=== PATIENT | male | born 1965 | race African-American/Black ===

== ENCOUNTER 2020-01-03 18:35 | Emergency (ER) | payer SELFPAY ==
--- NOTE | 2020-01-03 19:14 | RAD REPORT ---
EXAM DESCRIPTION: CT - Head C Spine Mpr Wo Con - 01/03/2020 7:01 pm CLINICAL HISTORY: Head and neck injury status post fall. Head and neck pain. Alteration of conscious ness COMPARISON: None. TECHNIQUE: Computed axial tomography of the head and cervical spine was obtained. Sagittal and coronal reconstruction was performed. All CT scans are performed using dose optimization technique as appropriate and may include automated exposure control or mA/KV adjustment according to patient size. FINDINGS: 6.7 centimeter bleed is present within predominantly the left basal ganglia extending into the left frontal lobe with surrounding edema. The left lateral ventricle is compressed. Shift of mid line structures 7 millimeters to the right is noted. A cervical fracture is not visualized. No dislocation is noted. IMPRESSION: 6.7 centimeter left basal ganglia bleed perhaps secondary to hypertension A cervical fracture is not visualized. Nurse Terrence notified at 7:06 p.m. on January 03, 2020
--- NOTE | 2020-01-03 19:16 | RAD REPORT ---
EXAM DESCRIPTION: Manjeet Single View01/03/2020 7:10 pm CLINICAL HISTORY: Chest pain COMPARISON: 2015 FINDINGS: The lungs appear clear of acute infiltrate. The heart is moderately enlarged IMPRESSION: No acute abnormalities displayed
[2020-01-03] MEDS ORDERED: Nicardipine/NS 25 MG/250 ML KIT IV ONE (19:18)
[2020-01-03 19:35] LABS: Absolute Lymphocytes (CBC) 1.3 K/uL (0.7-4.9); Basophils % 1.3 % (0-1.3); Hematocrit 37.6 % (39.6-49.0); Lymphocytes % 25.4 % (15.3-44.8); MPV 8.6 fL (7.6-11.3); RBC Red Blood Cell Count 3.84 M/uL (4.33-5.43)
--- NOTE | 2020-01-03 19:37 | ER ---
Nurse's Notes [facility] Name: José Miller Age: 54 yrs Sex: Male : 1965 Arrival Date: 01/03/2020 Time: 18:37 Bed 4 Private MD: Diagnosis: Aphasia following other nontraumatic intracranial hemorrhage;Hemiplegia and hemiparesis following other nontraumatic intracranial hemorrhage-right side Presentation: 01/02 18:38 Chief complaint: EMS states: Last seen by family on Sun who broke into pt's home today ph to check on him, found on ground w/ R sided weakness, EMS noticed empty bag of synthetic marijuana in residence but pt denies using, BGL 86, only hx reported by family is HTN, BP 180/90. Coronavirus screen: Proceed with normal triage. Ebola Screen: No symptoms or risks identified at this time. An acute neurological deficit is present. The patients blood glucose was checked before arriving to the hospital and was found to be normal. Initial Sepsis Screen: Does the patient meet any 2 criteria? Altered Mental Status. Does the patient have a suspected source of infection? No. Patient's initial sepsis screen is negative. Risk Assessment: Do you want to hurt yourself or someone else? Patient reports no desire to harm self or others. Onset of symptoms was January 03, 2020. 18:38 [facility] 18:38 Acuity: CHAMP 2 ph Triage Assessment: 19:08 The onset of the patients symptoms was at an unknown time. jb4 19:08 General: Appears in no apparent distress. uncomfortable, ill. jb4 Stroke Activation: Symptom onset > 6 hours Physician: Stroke Attending; Name: ; Notified At: ; Arrived At: Physician: Chief Stroke Resident; Name: ; Notified At: ; Arrived At: Physician: Stroke Resident; Name: ; Notified At: ; Arrived At: Physician: ED Attending; Name: ; Notified At: ; Arrived At: Physician: ED Resident; Name: ; Notified At: ; Arrived At: Historical: - Allergies: 18:48 No Known Allergies; ph - PMHx: 18:48 Hypertension; ph - PSHx: 18:48 None; ph - Immunization history:: Adult Immunizations unknown. - Social history:: Smoking status: unknown. Screenin:08 Abuse screen: No s/s of abuse noted. Nutritional screening: No deficits noted. jb4 Tuberculosis screening: No symptoms or risk factors identified. Fall Risk None identified. Assessment: 19:06 Reassessment: PT is in CT. jb4 19:06 Reassessment: Celestino US and notified of CT scan results per the radiologist.sg 19:08 General: Appears in no apparent distress. ill, slender, Behavior is calm. Pain: Unable jb4 to use pain scale. Does not appear to understand pain scale. Neuro: Level of Consciousness is confused, obtunded, Oriented to none Facial symmetry appears normal, Pupils are PERRLA. Cardiovascular: Heart tones S1 S2 present Patient's skin is warm and dry. Rhythm is sinus rhythm. Respiratory: Airway is patent Respiratory effort is even, unlabored, Respiratory pattern is regular, symmetrical, Breath sounds are clear bilaterally. GI: No signs and/or symptoms were reported involving the gastrointestinal system. : No signs and/or symptoms were reported regarding the genitourinary system. EENT: No signs and/or symptoms were reported regarding the EENT system. Derm: Skin is intact, Skin is dry, Skin is normal, Skin temperature is warm. 19:08 VAN Scoring:. Musculoskeletal: Pt is able to move the left side of his body. Is unable jb4 to move the right side and does not with draw from pain. No effort against gravity noted with any limb. Pt does not follow commands. Is able to open and close left hand, raise and lower left arm, and move entire left lower extremity. 19:38 The patient has not been NPO before screening. The patient is not alert and/or unable sg to follow commands. no speech The patient is exhibiting difficulty speaking. The patient is exhibiting difficulty understanding words. The patient is able to swallow own secretions with no drooling or need for suction. The patient did not tolerate one teaspoon of water. Drooling, immediate coughing, gurgling, or clearing of the throat was noted. Bedside swallow screening discontinued. Patient kept NPO until cleared by Speech Therapy or Physician. 19:38 not given The patient failed the bedside swallow screening. The patient will be kept jb4 NPO until cleared by Speech Therapy or Physician. Provider notified of bedside swallow screening results: Gary US. 19:38 T-PA (Activase) Screening: Contraindications: Intracranial hemorrhage and its risk jb4 factor and suspicion of subarachnoid bleed:. 19:43 Reassessment: lab has been contacted for a recollect of a BLUE TOP and one more Green sg Top, awaiting lab at this time. 20:00 Reassessment: phlebotomy at bedside for recollect at this time. sg 20:00 Reassessment: Cardene drip increased to 7mg/hr. jb4 20:18 Reassessment: [facility] at bedside at this time for pt transport to receiving sg facility, primary nurse Ty at bedside for pt report. 20:26 Reassessment: Pt remains disoriented, and confused, A\T\Ox0, awakens to verbal stimuli. jb4 Does not follow commands. Respirations are even and unlabored. No s/s of distress or pain noted. Transferred to [facility] stretcher. IV saline locked to right AC. Cardene drip infusing to Left AC \T\ 7mg/hr. Vital Signs: 18:38 BP 180 / 114; Pulse 58; Resp 18; Temp 97.8; Pulse Ox 100% on R/A; Weight 70.31 kg; ph 19:40 BP 169 / 95; jb4 19:57 BP 169 / 95; Pulse 79; Resp 20; Pulse Ox 100% on R/A; mw2 20:20 BP 160 / 90; Pulse 76; Resp 18; Temp 98.8(TE); Pulse Ox 98% on R/A; jb4 [place] Coma Score: 19:30 Eye Response: to pain(2). Verbal Response: none(1). Motor Response: withdraws from sg pain(4). Total: 7. 20:20 Eye Response: to voice(3). Verbal Response: incomprehensible(2). Motor Response: jb4 withdraws from pain(4). Total: 9. NIH Stroke Scale Scores: 19:08 NIHSS Score: 36 jb4 ED Course: 18:37 Patient arrived in ED. ph 18:41 Gary Garrido PA is PHCP. cp 18:41 Gary Swartz MD is Attending Physician. cp 18:48 Triage completed. ph 18:48 Patient has correct armband on for positive identification. Placed in gown. Bed in low ph position. Call light in reach. Side rails up X2. teletypesetter monitor on. Pulse ox on. NIBP on. Noise minimized. Warm blanket given. 18:58 EKG done, by ED staff, reviewed by Gary US. mh5 19:01 CT Head C Spine In Process Unspecified. EDMS 19:05 Arsalan Valdes, RN is Primary Nurse. jb4 19:08 Arm band placed on right wrist. jb4 19:10 XRAY Chest (1 view) In Process Unspecified. EDMS 19:15 Initial lab(s) drawn, by me, sent to lab. Inserted saline lock: 20 gauge in left sg antecubital area, using aseptic technique. Blood collected. 19:28 Urine collected: clean catch specimen, clear, obtained while attempting to straight sg cath pt per Arsalan MOSES. 20:00 pt's son José Amaya phone number [phone]. pt's older sister Cuca phone number [phone] 20:20 Talbot cath inserted, using sterile technique, 16 Fr., by me, balloon inflated, to jb4 gravity drainage. 20:30 No provider procedures requiring assistance completed. Patient transferred, IV remains jb4 in place. Administered Medications: 19:28 Drug: Cardene 5 mg/hr Route: IV; Rate: calculated rate; Site: left antecubital; jb4 19:40 Follow up: BP 169 / 95; Response: No adverse reaction; Pain is decreased jb4 20:00 Follow up: Rate change 7 mg/hr 20:20 Follow up: Response: No adverse reaction; IV Status: Infusion continued upon transfer jb4 Outcome: 19:35 ER care complete, transfer ordered by . melody 20:08 Transferred Note: report called to JOSUÉ Cortes 20:30 Transferred by helicopter to [facility], Transfer form completed. jb4 X-rays sent w/ patient. 20:30 Condition: stable 20:30 Discharge instructions given to family, Instructed on the need for transfer, Demonstrated understanding of instructions. 20:33 Patient left the ED. jb4 NIH Stroke Scale - NIH Stroke Score Date: 01/03/2020 Time: 19:08 Total Score = 36 1a. Level of Consciousness (LOC) - 2(Not Alert, obtunded) 1b. Level of Consciousness (LOC) (Year \T\ Age) - 2(Neither) 1c. LOC Commands (Open \T\ Closes Eyes/Pivot Maker) - 2(Neither) 2. Best Gaze (Lateral Gaze Paresis) - 2(Forced deviation) 3. Visual Field Loss - 3(Bilateral hemianopia) 4. Facial Palsy - 0(Normal) 5a. Left Arm: Motor (10-second hold) - 3(No effort against gravity) 5b. Right Arm: Motor (10-second hold) - 4(No movement) 6a. Left Leg: Motor (5-second hold - always test supine) - 3(No effort against gravity) 6b. Right Leg: Motor (5-second hold - always test supine) - 4(No movement) 7. Limb Ataxia (finger/nose \T\ heel/bell - test with eyes open) - 2(Present in two limbs) 8. Sensory Loss (pinprick arms/legs/face) - 2(Severe to total loss) 9. Best Language: Aphasia (description/naming/reading) - 3(Mute, global aphasia) 10. Dysarthria (speech clarity - read or repeat words) - 2(Severe) 11. Extinction and Inattention (visual/tactile/auditory/spatial/personal) - 2(Profound) Initials: jb4 Addendum: 01/05/2020 04:29 Addendum: Other COVID 19 test results negative. sg Signatures: Dispatcher [employer] Terrence Vaz RN RN sg Lorena Travis RN RN Gary Melissa, Arsalan Tilley cp, RN RN jb4 Natalie Hernandez [facility] Sebastian Estrada 2
--- NOTE | 2020-01-03 19:37 | EDPHYS ---
Physician Documentation [facility] Name: José Miller Age: 54 yrs Sex: Male : 1965 Arrival Date: 01/03/2020 Time: 18:37 Bed 4 Private MD: ED Physician Gary Swartz HPI: 01/02 18:50 This 54 yrs old Black Male presents to ER via EMS with complaints of S/S of Possible cp Stroke. 18:50 The patient's problem is reported as altered mental status, decreased responsiveness, cp weakness, in the right upper extremity, in the right lower extremity. Onset: The symptoms/episode began/occurred at an unknown time. EMS reports family last saw patient normal 3 days ago. Patient's baseline: Neuro: alert and fully oriented, Motor: no deficits, Ambulation: walks without assistance, Speech: normal. Historical: - Allergies: 18:48 No Known Allergies; ph - PMHx: 18:48 Hypertension; ph - PSHx: 18:48 None; ph - Immunization history:: Adult Immunizations unknown. - Social history:: Smoking status: unknown. ROS: 18:54 Constitutional: Negative for fever. cp 18:54 Neuro: Positive for altered mental status, weakness, of the right arm and right leg. 18:54 Unable to obtain ROS due to altered mental status. Exam: 18:54 ECG was reviewed by the Attending Physician. cp 19:13 Head/Face: Normocephalic, atraumatic. cp 19:13 Constitutional: The patient appears alert, awake, non-diaphoretic, non-toxic, well developed, well nourished. 19:13 Eyes: Periorbital structures: appear normal, Pupils: equal, round, and reactive to light and accomodation, Conjunctiva: normal, no exudate, no injection, Lids and lashes: appear normal, bilaterally. 19:13 ENT: External ear(s): are unremarkable, Ear canal(s): are normal, clear, TM's: bulging, is not appreciated, bilaterally, dullness, bilaterally, erythema, is not appreciated, bilaterally, Nose: is normal, Mouth: is normal. 19:13 Neck: C-spine: vertebral tenderness, is not appreciated, crepitus, is not appreciated, ROM/movement: is normal, is supple, no range of motions limitations, no nuchal rigidity. 19:13 Chest/axilla: Inspection: normal, Palpation: is normal, no crepitus, no tenderness. 19:13 Cardiovascular: Rate: bradycardic, Rhythm: regular, Heart sounds: murmur, not appreciated, Edema: is not appreciated, JVD: is not appreciated. 19:13 Respiratory: the patient does not display signs of respiratory distress, Respirations: normal, no use of accessory muscles, no retractions, labored breathing, is not present, Breath sounds: are clear throughout, no decreased breath sounds, no stridor, no wheezing. 19:13 Abdomen/GI: Inspection: abdomen appears normal, Bowel sounds: active, all quadrants, Palpation: abdomen is soft and non-tender, in all quadrants. 19:13 Neuro: Orientation: Not oriented to person, place, situation, Cerebellar function: unable to test, patient altered, Motor: strength is 5/5 in the left arm and left leg, Strength is 1/5 in the right arm and right leg, Sensation: pin prick is decreased in the right arm and right leg, light touch is decreased in the right arm and right leg. 19:40 Radiologist reports: 6.7 cm left basal ganglia bleed cp 19:40 ECG was reviewed by the Attending Physician. Vital Signs: 18:38 BP 180 / 114; Pulse 58; Resp 18; Temp 97.8; Pulse Ox 100% on R/A; Weight 70.31 kg; ph 19:40 BP 169 / 95; jb4 19:57 BP 169 / 95; Pulse 79; Resp 20; Pulse Ox 100% on R/A; mw2 20:20 BP 160 / 90; Pulse 76; Resp 18; Temp 98.8(TE); Pulse Ox 98% on R/A; jb4 NIH Stroke Scale Scores: 19:08 NIHSS Score: 36 jb4 [place] Coma Score: 19:30 Eye Response: to pain(2). Verbal Response: none(1). Motor Response: withdraws from sg pain(4). Total: 7. 20:20 Eye Response: to voice(3). Verbal Response: incomprehensible(2). Motor Response: jb4 withdraws from pain(4). Total: 9. MDM: 18:42 Patient medically screened. cp 18:50 Differential diagnosis: CVA, TIA, metabolic disorder, drug effects, acute MT. 19:35 Data reviewed: vital signs, nurses notes, EKG, radiologic studies, CT scan, plain cp films, I have discussed the patient's presentation/case with the attending Emergency Department Physician;. 19:35 Physician consultation: DR Lockett, neurologist \T\[facility]', will accept patient as cp transfer for continued care. 01/02 18:44 Order name: UDS 01/02 18:44 Order name: Urine Microscopic Only 01/02 18:44 Order name: CBC with Diff; Complete Time: 19:57 01/02 19:57 Interpretation: Normal except: RBC 3.84; HGB 12.3; HCT 37.6; PLT 151. 01/02 18:44 Order name: CT Head C Spine; Complete Time: 19:24 01/02 19:30 Interpretation: Reviewed report. 01/02 18:44 Order name: ETOH Level; Complete Time: 20:15 01/02 20:15 Interpretation: Reviewed. 01/02 19:29 Order name: COVID-19 01/02 19:57 Order name: Urine Dipstick--Ancillary (enter results) 2 01/02 18:44 Order name: Urine Dipstick-Ancillary (obtain specimen); Complete Time: 20:04 01/02 18:44 Order name: XRAY Chest (1 view); Complete Time: 19:24 01/02 19:29 Interpretation: Report review. 01/02 18:44 Order name: EKG; Complete Time: 18:46 01/02 18:44 Order name: Cardiac monitoring; Complete Time: 18:59 01/02 18:44 Order name: EKG - Nurse/Tech; Complete Time: 18:59 01/02 18:44 Order name: IV Saline Lock; Complete Time: 19:00 01/02 18:44 Order name: Labs collected and sent; Complete Time: 19:00 01/02 18:44 Order name: O2 Per Protocol; Complete Time: 19:07 01/02 18:44 Order name: O2 Sat Monitoring; Complete Time: 19:07 01/02 19:13 Order name: Talbot; Complete Time: 20:32 01/02 19:45 Order name: Labs - recollect needed: Blue top, 1 more green top; Complete Time: 20:11 sg EC:54 Rate is 61 beats/min. Rhythm is regular. OH interval is normal. QRS interval is cp prolonged at 116 msec. QT interval is normal. T waves are Inverted in leads I, aVL, V2, V6. Interpreted by me. Reviewed by me. 19:40 Rate is 64 beats/min. Rhythm is regular. OH interval is normal. QRS interval is cp prolonged at 124 msec. QT interval is normal. T waves are Inverted in leads I, aVL, V5, V6. Interpreted by me. Reviewed by me. Administered Medications: 19:28 Drug: Cardene 5 mg/hr Route: IV; Rate: calculated rate; Site: left antecubital; jb4 19:40 Follow up: BP 169 / 95; Response: No adverse reaction; Pain is decreased jb4 20:00 Follow up: Rate change 7 mg/hr sg 20:20 Follow up: Response: No adverse reaction; IV Status: Infusion continued upon transfer jb4 Disposition: 20:02 Chart complete. cp Disposition: 01/03/20 19:35 Transfer ordered to [facility]. Diagnosis are Aphasia following other nontraumatic intracranial hemorrhage, Hemiplegia and hemiparesis following other nontraumatic intracranial hemorrhage - right side. - Reason for transfer: Higher level of care. - Accepting physician is DR Lockett. - Condition is Stable. - Problem is new. - Symptoms are unchanged. NIH Stroke Scale - NIH Stroke Score Date: 01/03/2020 Time: 19:08 Total Score = 36 1a. Level of Consciousness (LOC) - 2(Not Alert, obtunded) 1b. Level of Consciousness (LOC) (Year \T\ Age) - 2(Neither) 1c. LOC Commands (Open \T\ Closes Eyes/[employer]) - 2(Neither) 2. Best Gaze (Lateral Gaze Paresis) - 2(Forced deviation) 3. Visual Field Loss - 3(Bilateral hemianopia) 4. Facial Palsy - 0(Normal) 5a. Left Arm: Motor (10-second hold) - 3(No effort against gravity) 5b. Right Arm: Motor (10-second hold) - 4(No movement) 6a. Left Leg: Motor (5-second hold - always test supine) - 3(No effort against gravity) 6b. Right Leg: Motor (5-second hold - always test supine) - 4(No movement) 7. Limb Ataxia (finger/nose \T\ heel/bell - test with eyes open) - 2(Present in two limbs) 8. Sensory Loss (pinprick arms/legs/face) - 2(Severe to total loss) 9. Best Language: Aphasia (description/naming/reading) - 3(Mute, global aphasia) 10. Dysarthria (speech clarity - read or repeat words) - 2(Severe) 11. Extinction and Inattention (visual/tactile/auditory/spatial/personal) - 2(Profound) Initials: jb4 Addendum: 01/05/2020 09:54 Co-signature as Attending Physician, Gary Swartz MD I agree with the [facility] assessment and plan of care. Signatures: Dispatcher [employer] Terrence Vaz, RN Gary Nelson MD MD cha Hall, Patricia, RN RN Gary Melissa PA PA cp Bryson, James, RN RN jb4 Corrections: (The following items were deleted from the chart) 01/02 19:56 19:35 01/03/2020 19:35 Transfer ordered to [facility]. Diagnosis is Aphasia following other nontraumatic intracranial hemorrhage; Hemiplegia and hemiparesis following other nontraumatic intracranial hemorrhage - right side. Reason for transfer: Higher level of care. Accepting physician is . Condition is Stable. Problem is new. Symptoms are unchanged. cp 20:28 18:45 BASIC METABOLIC PANEL+C.LAB.BRZ ordered. EDMS EDMS 20:28 18:45 HEPATIC FUNCTION+C.LAB.BRZ ordered. EDMS EDMS 20:28 18:45 MAGNESIUM+C.LAB.BRZ ordered. EDMS EDMS 20:28 18:45 PROBNP+C.LAB.BRZ ordered. EDMS EDMS 20:28 18:45 TROPONIN (EMERG DEPT USE ONLY)+C.LAB.BRZ ordered. EDMS EDMS 20:28 18:45 CREATINE PHOSPHOKINASE+C.LAB.BRZ ordered. EDMS EDMS 20:29 18:45 PROTIME (+INR)+COAG.LAB.BRZ ordered. EDAR EDMS 20:33 19:56 01/03/2020 19:35 Transfer ordered to [place] [id number] [facility]. Diagnosis is Aphasia following other nontraumatic intracranial hemorrhage; Hemiplegia and hemiparesis following other nontraumatic intracranial hemorrhage - right side. Reason for transfer: Higher level of care. Accepting physician is DR Lockett. Condition is Stable. Problem is new. Symptoms are unchanged. cp
[2020-01-03 20:20] LABS: Barbiturates NEGATIVE (NEGATIVE); Benzodiazepines NEGATIVE (NEGATIVE); Cocaine POSITIVE (NEGATIVE); METHAMPHETAM NEGATIVE (NEGATIVE); Methadone NEGATIVE (NEGATIVE); Opiates NEGATIVE (NEGATIVE); Phencyclidine NEGATIVE (NEGATIVE); THC Cannibis POSITIVE (NEGATIVE)
[2020-01-03 20:21] LABS: Urine Blood 1+ (NEG); Urine Glucose NEGATIVE (NEG); Urine Protein NEGATIVE (NEG); Urine Specific Gravity 1.025 (1.005-1.030)
[2020-01-03 20:29] LABS: Urine Bacteria <20 /HPF (NONE SEEN); Urine Culture Reflex Order NOT NEEDED; Urine RBC <5 /HPF (NONE SEEN)
[2020-01-03 20:48] VITALS: BP 160/90; TEMP 98.8; O2SAT 98
--- NOTE | 2020-01-04 06:49 | EKG ---
Test Date: 2020-01-03 Test Time: 18:42:57 Director Sales Training: ANAMARIA MEASUREMENT RESULTS: Intervals: Rate: 61 OH: 164 QRSD: 116 QT: 482 QTc: 485 [place]: P: 58 OH: 164 QRS: -62 T: 126 INTERPRETIVE STATEMENTS: Atrial-sensed ventricular-paced rhythm Abnormal ECG Compared to ECG 11/26/2015 17:48:56 Sinus rhythm no longer present Left anterior fascicular block no longer present Left ventricular hypertrophy no longer present Early repolarization no longer present Myocardial infarct finding no longer present Electronically Signed On 01-04-20 06:48:29 CDT by Denny Selby
--- NOTE | 2020-01-05 20:15 | EKG ---
Test Date: 2020-01-03 Test Time: 19:32:24 Box Lining Machine Feeder: REGAN MEASUREMENT RESULTS: Intervals: Rate: 64 NC: 164 QRSD: 124 QT: 482 QTc: 497 [place]: P: 53 NC: 164 QRS: -62 T: 146 INTERPRETIVE STATEMENTS: Normal sinus rhythm Possible Left atrial enlargement Left anterior fascicular block Left ventricular hypertrophy with QRS widening and repolarization abnormality Cannot rule out Anterior infarct, age undetermined Abnormal ECG Compared to ECG 01/03/2020 18:42:57 Left anterior fascicular block now present Left ventricular hypertrophy now present Early repolarization now present Myocardial infarct finding now present Ventricular-paced complex(es) or rhythm no longer present Atrial-sensed ventricular-paced complex(es) or rhythm no longer present Electronically Signed On 01-05-20 20:11:26 CDT by Denny Selby
== END 2020-01-03 20:33 | disposition short-term general hospital (02) ==
LOC: ER 18:35
DX: I69.220 Aphasia following other nontraumatic intracranial hemorrhage (principal); I69.251 Hemiplegia and hemiparesis following other nontraumatic intracranial hemorrhage affecting right dominant side; Z11.59 Encounter for screening for other viral diseases; I10 Essential (primary) hypertension; R29.736 NIHSS score 36
CPT/HCPCS: 51702; 70450; 71045; 72125; 80307; 80320; 81003; 81015; 85025; 93005; 96365; 99285; U0001; U0002

== ENCOUNTER 2020-02-03 14:35 | Emergency (ER) | payer SELFPAY ==
--- OUTSIDE RECORDS SUMMARY | 2020-02-03 14:37 | XMS REPORT | Clinical Summary ---
:1965 Author Organization [facility] Address [address] [place] [address] Care Team Providers Name Role Phone Unavailable Primary Care Provider Unavailable Allergies No Known Allergies Medications Medication Sig Dispensed Refills Start Date End Date Status amLODIPine (NORVASC) Take 1 tablet 30 tablet 0 01/14/2020 05/0 02/2021 Active 10 MG tablet (10 mg total) by mouth daily. hydrALAZINE Take 1 tablet 90 tablet 0 01/13/2020 01/12/2021 Ac tive (APRESOLINE) 50 MG (50 mg total) by tablet mouth every 8 (eight) hours. lisinopriL Take 1 tablet 30 tablet 0 01/14/2020 01/13/2021 Act elva (PRINIVIL,ZESTRIL) 40 (40 mg total) by MG tablet mouth daily. melatonin 3 mg Tab Take 3 tablets 30 tablet 0 01/13/2020 Active tablet (9 mg total) by mouth nightly. senna-docusate Take 1 tablet by 30 tablet 0 01/13/2020 021 Active (SENOKOT S) 8.6-50 mg mouth 2 (two) per tablet times daily. amantadine HCL Take 10 mLs (100 140 mL 0 01/14/2020 020 (SYMMETREL) 50 mg/5 mg total) by mL solution mouth every morning for 7 days. Active Problems Problem Noted Date Hypertensive emergency 01/04/2020 Cerebral edema 01/04/2020 Midline shift of brain due to hematoma 01/04/2020 Substance abuse 01/04/2020 Encephalopathy acute 01/04/2020 Smoker 01/04/2020 ICH (intracerebral hemorrhage) 01/03/2020 Encounters Date Type Specialty Care Team Description 01/12/2020 Telephone General Internal Dioni Hart RN 01/08/2020 Orders Only General Internal Medicine 01/07/2020 Telephone Intensive Care Onelia Hart RN 01/04/2020 Lab Requisition Lab 01/04/2020 Travel 01/04/2020 Outside Orders Lab Ethan Coughlin 01/03/2020 - Hospital Encounter General Internal Jerel Lockett Nont raumatic subcortical hemorrhage of left cerebral hemisphere (HCC); 01/13/2020 Medicine MD Taye Encephalopathy acute; Shayne Horton cardiom yopathy (HCC); Samuel Knight MD Smoker Ketty Ruff MD after 02/02/2019 Social History Tobacco Use Types Packs/Day Years Used Date Current Every Day Smoker 0.25 30 Smokeless Tobacco: Never Used Alcohol Use Drinks/Week oz/Week Comments Yes 4 Cans of beer 2.4 Sex Assigned at Date Recorded Not on file Job Start Date Occupation Industry Not on file Not on file Not on file Travel History Travel Start Travel End No recent travel history available. Last Filed Vital Signs Vital Sign Reading Time Taken Blood Pressure 132/88 01/13/2020 12:00 PM CDT Pulse 88 01/13/2020 12:00 PM CDT Temperature 36.4 C (97.6 F) 01/13/2020 12:00 PM CDT Respiratory Rate 18 01/13/2020 12:00 PM CDT Oxygen Saturation 99% 01/13/2020 12:00 PM CDT Inhaled Oxygen Concentration - - Weight 64.4 kg (141 lb 15.6 oz) 01/04/2020 4:0 0 PM CDT Height 165.1 cm (5' 5") 01/04/2020 4:00 PM CDT Body Mass Index 23.63 01/04/2020 4:00 PM CDT Plan of Treatment Not on file Procedures Procedure Name Priority Date/Time Associated Comments Diagnosis REPORT OF PROCEDURE 01/14/2020 10:41 AM - ENDOSCOPY SCAN CDT RHYTHM STRIP - SCAN 01/14/2020 10:41 AM CDT MR CARDIAC WITHOUT & Routine 01/12/2020 11:03 AM Results for this WITH CONTRAST CDT procedure are in the results section. POCT-GLUCOSE METER Routine 01/11/2020 12:17 PM Re sults for this CDT procedure are i n the results section. POCT-GLUCOSE METER Routine 01/11/2020 7:45 AM Re sults for this CDT procedure are i n the results section. CBC (HEMOGRAM ONLY) Routine 01/11/2020 5:34 AM R esults for this CDT procedure are i n the results section. BASIC METABOLIC Routine 01/11/2020 5:34 AM Resul ts for this PANEL (7) CDT procedure are i n the results section. POCT-GLUCOSE METER Routine 01/10/2020 6:18 PM Re sults for this CDT procedure are i n the results section. POCT-GLUCOSE METER Routine 01/10/2020 11:12 AM Re sults for this CDT procedure are i n the results section. POCT-GLUCOSE METER Routine 01/10/2020 8:30 AM Re sults for this CDT procedure are i n the results section. MAGNESIUM Routine 01/10/2020 4:54 AM Results for this CDT procedure are i n the results section. LIPID PANEL Routine 01/10/2020 4:54 AM Results for this CDT procedure are i n the results section. CBC (HEMOGRAM ONLY) Routine 01/10/2020 4:54 AM R esults for this CDT procedure are i n the results section. BASIC METABOLIC Routine 01/10/2020 4:54 AM Resul ts for this PANEL (7) CDT procedure are i n the results section. POCT-GLUCOSE METER Routine 01/09/2020 8:45 PM Re sults for this CDT procedure are i n the results section. POCT-GLUCOSE METER Routine 01/09/2020 6:14 PM Re sults for this CDT procedure are i n the results section. POCT-GLUCOSE METER Routine 01/09/2020 12:25 PM Re sults for this CDT procedure are i n the results section. POCT-GLUCOSE METER Routine 01/09/2020 6:10 AM Re sults for this CDT procedure are i n the results section. CBC (HEMOGRAM ONLY) Routine 01/09/2020 4:48 AM R esults for this CDT procedure are i n the results section. BASIC METABOLIC Routine 01/09/2020 4:48 AM Resul ts for this PANEL (7) CDT procedure are i n the results section. POCT-GLUCOSE METER Routine 01/08/2020 11:31 PM Re sults for this CDT procedure are i n the results section. NM MYOCARDIAL Routine 01/08/2020 2:51 PM Results for this PERFUSION SPECT, CDT procedure a re in PHARM(LEXISCAN) the results section. TREADMILL Routine 01/08/2020 12:51 PM Results for this TOLERANCE(NON-NUCLEA CDT procedu re are in R TREADMILL) the results section. ECG 12-LEAD Routine 01/08/2020 12:38 PM CDT Procedure Note - Interface, External Ris In - 01/08/2020 1:17 PM CDT Ventricular Rate 54 BPM Atrial Rate 54 BPM P-R Interval 156 ms QRS Duration 122 ms Q-T Interval 474 ms QTC Calculation(Bazett) 449 ms P Kyle 56 degrees R Kyle -36 degrees T Kyle 175 degrees Sinus bradycardia Possible Left atrial enlarge ment Left axis deviation Left ventricular hypertrophy with QRS widening and repolarization abnormality Possible Anteroseptal infarc t , age undetermined Abnormal ECG ECG 12-LEAD ASHLEY 01/08/2020 12:38 PM CDT Resu lts for this procedure are i n the results section . CBC (HEMOGRAM ONLY) Routine 01/08/2020 4:52 AM CDT Results for this procedure are i n the results section . BASIC METABOLIC PANEL (7) Routine 01/08/2020 4:52 AM CDT Results for this procedure are i n the results section . SODIUM Routine 01/07/2020 1:33 PM CDT Resu lts for this procedure are i n the results section . POCT-GLUCOSE METER Routine 01/07/2020 6:10 AM CDT Results for this procedure are i n the results section . CBC (HEMOGRAM ONLY) Routine 01/07/2020 3:13 AM CDT Results for this procedure are i n the results section . BASIC METABOLIC PANEL (7) Routine 01/07/2020 3:13 AM CDT Results for this procedure are i n the results section . POCT-GLUCOSE METER Routine 01/06/2020 11:41 PM CDT Results for this procedure are i n the results section . SODIUM Routine 01/06/2020 11:06 PM CDT Resu lts for this procedure are i n the results section . POCT-GLUCOSE METER Routine 01/06/2020 6:18 PM CDT Results for this procedure are i n the results section . POTASSIUM Routine 01/06/2020 2:44 PM CDT Resu lts for this procedure are i n the results section . SODIUM Routine 01/06/2020 2:44 PM CDT Resu lts for this procedure are i n the results section . POCT-GLUCOSE METER Routine 01/06/2020 12:19 PM CDT Results for this procedure are i n the results section . SODIUM Routine 01/06/2020 10:44 AM CDT Resu lts for this procedure are i n the results section . POCT-GLUCOSE METER Routine 01/06/2020 6:03 AM CDT Results for this procedure are i n the results section . CBC W/PLT COUNT & AUTO Routine 01/06/2020 4:05 AM CDT Results for this DIFFERENTIAL procedure are i n the results section . BASIC METABOLIC PANEL (7) Routine 01/06/2020 4:05 AM CDT Results for this procedure are i n the results section . CBC W/PLT COUNT & AUTO Routine 01/06/2020 4:05 AM CDT Results for this DIFFERENTIAL procedure are i n the results section . POCT-GLUCOSE METER Routine 01/05/2020 11:35 PM CDT Results for this procedure are i n the results section . SODIUM Routine 01/05/2020 10:20 PM CDT Resu lts for this procedure are i n the results section . SODIUM Routine 01/05/2020 6:12 PM CDT Resu lts for this procedure are i n the results section . POCT-GLUCOSE METER Routine 01/05/2020 5:44 PM CDT Results for this procedure are i n the results section . CT BRAIN WITHOUT IV Routine 01/05/2020 2:42 PM CDT Results for this CONTRAST procedure are i n the results section . POCT-GLUCOSE METER Routine 01/05/2020 11:34 AM CDT Results for this procedure are i n the results section . POCT-GLUCOSE METER Routine 01/05/2020 6:15 AM CDT Results for this procedure are i n the results section . CBC W/PLT COUNT & AUTO Routine 01/05/2020 3:50 AM CDT Results for this DIFFERENTIAL procedure are i n the results section . BASIC METABOLIC PANEL (7) STAT 01/05/2020 3:50 AM CDT Results for this procedure are i n the results section . CBC W/PLT COUNT & AUTO Routine 01/05/2020 3:50 AM CDT Results for this DIFFERENTIAL procedure are i n the results section . POCT-GLUCOSE METER Routine 01/05/2020 12:23 AM CDT Results for this procedure are i n the results section . TROPONIN I Routine 01/04/2020 11:52 PM CDT Resu lts for this procedure are i n the results section . ECHOCARDIOGRAM REPORT - 01/04/2020 9:20 PM CDT SCAN TROPONIN I Routine 01/04/2020 6:17 PM CDT Resu lts for this procedure are i n the results section . POCT-GLUCOSE METER Routine 01/04/2020 5:20 PM CDT Results for this procedure are i n the results section . XR ABDOMEN / KUB 1 VIEW STAT 01/04/2020 3:27 PM CDT Results for this procedure are i n the results section . POCT-GLUCOSE METER Routine 01/04/2020 1:24 PM CDT Results for this procedure are i n the results section . TROPONIN I Routine 01/04/2020 10:45 AM CDT Resu lts for this procedure are i n the results section . B-TYPE NATRIURETIC FACTOR Routine 01/04/2020 10:45 AM CDT Results for this (BNP) procedure are i n the results section . 2D ECHO MODE W/O DOPPLER STAT 01/04/2020 8:59 AM CDT Results for this procedure are i n the results section . XR CHEST 1 VIEW Routine 01/04/2020 8:36 AM CDT R esults for this PORTABLE/BEDSIDE procedure a re in the results section . POCT-GLUCOSE METER Routine 01/04/2020 6:39 AM CDT Results for this procedure are i n the results section . CBC W/PLT COUNT & AUTO Routine 01/04/2020 4:43 AM CDT Results for this DIFFERENTIAL procedure are i n the results section . TROPONIN I Add-On 01/04/2020 4:43 AM CDT Resu lts for this procedure are i n the results section . CBC W/PLT COUNT & AUTO Routine 01/04/2020 4:43 AM CDT Results for this DIFFERENTIAL procedure are i n the results section . PHOSPHORUS Routine 01/04/2020 4:43 AM CDT Resu lts for this procedure are i n the results section . MAGNESIUM Routine 01/04/2020 4:43 AM CDT Resu lts for this procedure are i n the results section . BASIC METABOLIC PANEL (7) Routine 01/04/2020 4:43 AM CDT Results for this procedure are i n the results section . CT BRAIN WITHOUT IV Routine 01/04/2020 1:55 AM CDT Results for this CONTRAST procedure are i n the results section . POCT-GLUCOSE METER Routine 01/04/2020 12:08 AM CDT Results for this procedure are i n the results section . RAPID DRUG SCREEN, URINE Routine 01/03/2020 10:16 PM CDT Results for this procedure are i n the results section . CBC W/PLT COUNT & AUTO Routine 01/03/2020 10:11 PM CDT Results for this DIFFERENTIAL procedure are i n the results section . TROPONIN I Add-On 01/03/2020 10:11 PM CDT Resu lts for this procedure are i n the results section . CREATINE KINASE (CK) Routine 01/03/2020 10:11 PM CDT Results for this procedure are i n the results section . BASIC METABOLIC PANEL (7) Routine 01/03/2020 10:11 PM CDT Results for this procedure are i n the results section . CBC W/PLT COUNT & AUTO Routine 01/03/2020 10:11 PM CDT Results for this DIFFERENTIAL procedure are i n the results section . PLATELET AGGREGATION: AP Routine 01/03/2020 10:11 PM CDT Results for this FUNCTION SCREEN procedure ar e in the results section . APTT Routine 01/03/2020 10:11 PM CDT Resu lts for this procedure are i n the results section . PROTHROMBIN TIME/INR Routine 01/03/2020 10:11 PM CDT Results for this procedure are i n the results section . HEPATIC FUNCTION PANEL Routine 01/03/2020 10:11 PM CDT Results for this procedure are i n the results section . SARS-COV2/RT-PCR ([facility] & Routine 01/03/2020 8:00 PM CDT Results for this REF LABS) procedure are i n the results section . after 02/02/2019 Results EKG-SCANNED (01/14/2020 10:41 AM CDT) Narrative Performed At This result has an attachment that is no t available. RHYTHM STRIP - SCAN (01/14/2020 10:41 AM CDT) Narrative Performed At This result has an attachment that is no t available. MR cardiac without & with IV contrast (01/12/2020 11:03 AM CDT) Specimen Narrative Performed At FINAL REPORT [facility] Cardiac MRI dated 12-Jan-20 INDICATION: This is a 54 year-old male w ith diagnosis of non-ischaemic cardiomyopathy presents fo r assessment. TECHNIQUE: Cristi ACHIEVAMRI scanne r. Morphologic and dynamic cine imaging were performed in multiple proje ctions before and after contrast administration.Thereafter, gadolinium was administered, which was followed by viability/scar yelena ging.Finally, flow quantification sequences were performed to determine the degree of valvular dysfunction. Please refer to the contrast sheet scann ed in the EPIC system for the amount and route of contrast given. Patient weighs 142 pounds, with height o f 65 inches. Scanning blood pressure 149/90. Body surface area is ap proximately 1.72 sq m. FINDINGS: The chest wall and mediastinum appears unremarkable.The pericardium and pulmonary arteries appea r normal. A persistent left-sided SVC is seen, exp laining the prominence of the coronary sinus. A right-sided SVC is see n as well, with no bridging vein identified. Limited imaging through the lungs reveal s no gross abnormalities; MR is not optimised in the assessment of pu lmonary parenchymal lung disease. The cardiac chambers demonstrate normal atrioventricular and ventriculoarterial concordance, and syst emic and pulmonary venous return.The thoracic aorta is normal in course, calibre, and contour. No ectasia or aneurysmal dilati on is identified. There is no evidence of acute aortic pathology, such as dissection, intramural hematoma, or contained rupture. The left ventricle is enlarged, with at least moderate systolic dysfunction globally. Concentric left ve ntricular hypertrophy is identified, in the basal septum measure 17 mm and the adjacent lateral wall measures approximately 14 m m. No imaging evidence of left ventricular noncompaction. No turbu lence is seen in the left ventricle outflow tract and no systolic anterior motion of the anterior mitral valve leaflet is identif ied. Quantitative values are as follows: EDV = 245 cc; ESV = 156 cc; stroke volume = 89 cc; and ejection frac tion = 36%.Calculated absolute cardiac output = 5.6 liters/min .Absolute left ventricular mass = 235 grams. Indexed LVEDV = 140 cc /sq m confirming left ventricular enlargement. The right ventricle is normal in size an d function. Quantitative values are as follows: EDV = 160 cc; ESV = 68 cc; stroke volume = 91 cc; and ejection fraction = 57%. Cine imaging and flow quantification rev eals grossly unremarkable mitral, aortic and tricuspid valve funct ion. Trace aortic regurgitation is seen in the cine imagin g. Viability/scar imaging reveals uniformly "nulled" myocardium, indicating no prior myocardial damage. All of the left ventricular myocardium appears full thickness and vi able. Ventricular thrombus is not present. CONCLUSIONS: 1. Left ventricle is enlarged with a t least moderate global systolic dysfunction. Concentric left ve ntricular hypertrophy is identified, likely consistent with histo ry of hypertension. Ejection fraction is quantified to be 36%. Quantitative left ventricular functional values are as described above. Viability/scar imaging is normal.The re is no evidence of prior myocardial damage. No abnormal enhanceme nt of the myocardium is noted after contrast administration. Overall, the appearance suggestive of hy pertensive heart disease. No GERBER or left ventricular tract turbulence is noted. 2.The right ventricle is normal in s ize and function. Quantitative right ventricular functiona l values as described above. No abnormal enhancement of the right sugey tricular myocardium is noted after contrast administration. Signed: Carlos Arguello MD Report Verified Date/Time:01/12/2020 12:00:56 Reading Location: [place] [address] [address] Reading Room Procedure Note Interface, External Ris In - 01/12/2020 12:03 PM CDT FINAL REPORT Cardiac MRI dated 12-Jan-20 INDICATION: This is a 54 year-old male w ith diagnosis of non-ischaemic cardiomyopathy presents fo r assessment. TECHNIQUE: Cristi ACHIEVA MRI scanner. Morphologic and dynamic cine imaging were performed in multiple proje ctions before and after contrast administration. Thereafter, ga dolinium was administered, which was followed by viability/scar yelena ging. Finally, flow quantification sequences were performed to determine the degree of valvular dysfunction. Please refer to the contrast sheet scann ed in the [employer] system for the amount and route of contrast given. Patient weighs 142 pounds, with height o f 65 inches. Scanning blood pressure 149/90. Body surface area is ap proximately 1.72 sq m. FINDINGS: The chest wall and mediastinum appears unremarkable. The pericardium and pulmonary arteries appea r normal. A persistent left-sided SVC is seen, exp laining the prominence of the coronary sinus. A right-sided SVC is see n as well, with no bridging vein identified. Limited imaging through the lungs reveal s no gross abnormalities; MR is not optimised in the assessment of pu lmonary parenchymal lung disease. The cardiac chambers demonstrate normal atrioventricular and ventriculoarterial concordance, and syst emic and pulmonary venous return. The thoracic aorta is normal in course, calibre, and contour. No ectasia or aneurysmal dilati on is identified. There is no evidence of acute aortic pathology, such as dissection, intramural hematoma, or contained rupture. The left ventricle is enlarged, with at least moderate systolic dysfunction globally. Concentric left ve ntricular hypertrophy is identified, in the basal septum measure 17 mm and the adjacent lateral wall measures approximately 14 m m. No imaging evidence of left ventricular noncompaction. No turbu lence is seen in the left ventricle outflow tract and no systolic anterior motion of the anterior mitral valve leaflet is identif ied. Quantitative values are as follows: EDV = 245 cc; ESV = 156 cc; stroke volume = 89 cc; and ejection frac tion = 36%. Calculated absolute cardiac output = 5.6 liters/min . Absolute left ventricular mass = 235 grams. Indexed LVEDV = 140 cc /sq m confirming left ventricular enlargement. The right ventricle is normal in size an d function. Quantitative values are as follows: EDV = 160 cc; ESV = 68 cc; stroke volume = 91 cc; and ejection fraction = 57%. Cine imaging and flow quantification rev eals grossly unremarkable mitral, aortic and tricuspid valve funct ion. Trace aortic regurgitation is seen in the cine imagin g. Viability/scar imaging reveals uniformly "nulled" myocardium, indicating no prior myocardial damage. All of the left ventricular myocardium appears full thickness and vi able. Ventricular thrombus is not present. CONCLUSIONS: 1. Left ventricle is enlarged with at least moderate global systolic dysfunction. Concentric left ve ntricular hypertrophy is identified, likely consistent with histo ry of hypertension. Ejection fraction is quantified to be 36%. Quantitative left ventricular functional values are as described above. Viability/scar imaging is normal. There is no evidence of prior myocardial damage. No abnormal enhanceme nt of the myocardium is noted after contrast administration. Overall, the appearance suggestive of hy pertensive heart disease. No GERBER or left ventricular tract turbulence is noted. 2. The right ventricle is normal in siz e and function. Quantitative right ventricular functiona l values as described above. No abnormal enhancement of the right sugey tricular myocardium is noted after contrast administration. Signed: Carlos Arguello MD Report Verified Date/Time: 01/12/2020 1 2:00:56 Reading Location: [place] [address] [address] Reading Room Performing Organization Address City/State/Zipcode Phone Number GE RIS POC-Glucose meter (01/11/2020 12:17 PM CDT)Only the most recent of24 results within the time period is included. POC-Glucose Meter 112 (H)Comment: : TESTED 70 - 110 mg/dL [facility] AT [address], [address]: Pediatric Dental Hygienist/Orthopedic Surgeon ID = [id number] for ONELIA WALL Specimen Blood Performing Organization Address City/[facility] [place] [address] CENTER CBC (Hemogram only) (01/11/2020 5:34 AM CDT)Only the most recent of5 results within the time period is included. WBC 5.4 3.5 - 10.5 K/L [facility] RBC 4.24 (L) 4.63 - 6.08 M/L [facility] Hemoglobin 13.6 (L) 13.7 - 17.5 GM/DL [facility] Hematocrit 40.6 40.1 - 51.0 % [facility] MCV 95.8 (H) 79.0 - 92.2 fL [facility] MCH 32.1 25.7 - 32.2 pg [facility] MCHC 33.5 32.3 - 36.5 GM/DL [facility] RDW 13.2 11.6 - 14.4 % [facility] Platelets 206 150 - 450 K/CU MM [facility] MPV 11.0 9.4 - 12.4 fL [facility] nRBC 0 0 - 0 /100 WBC [facility] Specimen Blood Performing Organization Address City/[facility]/Zipcode Phone Number [address] [address] CENTER Basic Metabolic Panel (01/11/2020 5:34 AM CDT)Only the most recent of9 results within the time period is included. Sodium 139 136 - 145 meq/L [facility] Potassium 4.4 3.5 - 5.1 meq/L [facility] Chloride 108 (H) 98 - 107 meq/L [facility] CO2 25 22 - 29 meq/L [facility] BUN 21 7 - 21 mg/dL [facility] Creatinine 0.83 0.57 - 1.25 mg/dL [facility] Glucose 103 70 - 105 mg/dL [facility] Calcium 9.4 8.4 - 10.2 mg/dL [facility] EGFR 117Comment: ESTIMATED GFR IS mL/min/1.73 sq m [facility] NOT ACCURATE CREATININE [facility] CLEARANCE IN PREDICTING GLOMERULAR FILTRATION RATE. ESTIMATED GFR IS NOT APPLICABLE FOR DIALYSIS PATIENTS. Specimen Blood Narrative Performed At Pediatric Dental Hygienist ID - KAL Gamble [facility] Performing Organization Address City/[facility] Phone Number [address] [address] CENTER Magnesium (01/10/2020 4:54 AM CDT)Only the most recent of2 resultswithin the time period is included. Magnesium 1.9 1.6 - 2.6 mg/dL [facility] Specimen Blood Narrative Performed At Pediatric Dental Hygienist ID - CHEN Mitchell [facility] Performing Organization Address City/[facility]/Zipcode Phone Number [place] [phone] [place] [address] [place] Lipid panel (01/10/2020 4:54 AM CDT) Triglycerides 48 mg/dL [facility] Cholesterol 134 mg/dL [facility] HDL 50 mg/dL [facility] LDL Calculated 74 mg/dL [facility] Specimen Blood Narrative Performed At Triglyceride Reference Range: [facility] Low Risk <150 [id number] High Risk 200-499 Very High Risk>=500 Cholesterol Reference Range: Low Risk <200 [id number] High Risk>240 HDL Cholesterol Reference Range: Low Risk >=60 High Risk <40 LDL Cholesterol Reference Range: Optimal<100 Near [id number] Very High >=190 Pediatric Dental Hygienist ID - PIAYA L Performing Organization Address City/State/Zipcode Phone Number [facility] [address] [place] [address] [place] myocardial perfusion SPECT, pharm(Lexiscan) (01/08/2020 2:51 PM CDT) Specimen Narrative Performed At FINAL REPORT [employer] PROCEDURE: MYOCARDIAL PERFUSION SPECT IM AGING (Rest/Stress) CPT CODE: 45610 INDICATION: Coronary artery disease, fol low-up syncope CARDIOVASCULAR PROFILE: Symptoms: Syncope CAD History: Known CAD, history of [place] Risk Factors: Hypertension, smoker Medications: Amlodipine, hydralazine, la betalol, lisinopril, captopril, nicardipine STRESS PROTOCOL: Pharmacologic stress was achieved with a 10-second intravenous infusion of regadenoson 0.4 mg. IMAGING PROTOCOL: 10.65 mCi of Tc-99m sestamibi was inject ed intravenously at rest, and SPECT images were obtained. Then, 31.6 m Ci of Tc-99m sestamibi was injected intravenously at peak stress, a nd SPECT images were obtained. REST FINDINGS: HR: 56 /min BP: 162/89 mmHg Prelim. EKG: Sinus bradycardia. Perfusion: Normal. LV Volume: Normal. RV Volume: Normal. STRESS FINDINGS: HR: 83 /min (50% of MPHR) BP: 145/77 mmHg Prelim. EKG: No ischemic changes. Symptoms: None (treatment not required). Perfusion: Normal. Wall Motion: Global hypokinesis (LVEF 28 %). LV Volume: Unchanged from rest. IMPRESSION: 1. Abnormal study. 2. Normal myocardial perfusion.. 3. Abnormal LV function with global hypo kinesis. 4. Normal extracardiac tracer distributi on. 5. There is no prior study for compariso n. Signed: Eb Escoto MD Report Verified Date/Time:01/08/2020 17:06:03 Procedure Note Interface, External Ris In - 01/08/2020 5:08 PM CDT FINAL REPORT PROCEDURE: MYOCARDIAL PERFUSION SPECT IM AGING (Rest/Stress) CPT CODE: 01803 INDICATION: Coronary artery disease, fol low-up syncope CARDIOVASCULAR PROFILE: Symptoms: Syncope CAD History: Known CAD, history of [place] Risk Factors: Hypertension, smoker Medications: Amlodipine, hydralazine, la betalol, lisinopril, captopril, nicardipine STRESS PROTOCOL: Pharmacologic stress was achieved with a 10-second intravenous infusion of regadenoson 0.4 mg. IMAGING PROTOCOL: 10.65 mCi of Tc-99m sestamibi was inject ed intravenously at rest, and SPECT images were obtained. Then, 31.6 m Ci of Tc-99m sestamibi was injected intravenously at peak stress, a nd SPECT images were obtained. REST FINDINGS: HR: 56 /min BP: 162/89 mmHg Prelim. EKG: Sinus bradycardia. Perfusion: Normal. LV Volume: Normal. RV Volume: Normal. STRESS FINDINGS: HR: 83 /min (50% of MPHR) BP: 145/77 mmHg Prelim. EKG: No ischemic changes. Symptoms: None (treatment not required). Perfusion: Normal. Wall Motion: Global hypokinesis (LVEF 28 %). LV Volume: Unchanged from rest. IMPRESSION: 1. Abnormal study. 2. Normal myocardial perfusion. . 3. Abnormal LV function with global hypo kinesis. 4. Normal extracardiac tracer distributi on. 5. There is no prior study for compariso n. Signed: Eb Escoto MD Report Verified Date/Time: 01/08/2020 1 7:06:03 Performing Organization Address [facility] Phone Number GE RIS Treadmill tolerance(Non-Nuclear Treadmill) (01/08/2020 12:51 PM CDT) Specimen Narrative Performed At Protocol Name REGADENOSON GE MUSE Time In Exercise Phase 00:01:00 Max. Systolic BP 145 mmHg Max Diastolic BP 77 mmHg Max Heart Rate 83 BPM Max Predicted Heart Rate 166 BPM Reason For Termination Predetermined end point Reason for Test CAD follow up, syncope Target HR Formula (220 - Age)*100% Arrhythmias none Resting ECG Sinus Bradycardia, anterolat eral TWI left ventricular hypertrophy ST Changes Up Sloping inferior leads Overall Impression Indeterminate due to pharmacological stress Nuclear data reported separately Chest Pain none HR Response To Exercise BP Response To Exercise amlodipine, hydralazine, labetalol lisinopril, captopril, nicardipine Confirmed by fellow Yash Richey [id number]) on 01/08/2020 3:37:33 PM Confirmed by Roni HAQUE, NAVIN ([id number]) on 01/21/2020 2: 29:07 PM Procedure Note Interface, External Ris In - 01/21/2020 2:29 PM CDT Protocol Name REGADENOSON Time In Exercise Phase 00:01:00 Max. Systolic BP 145 mmHg Max Diastolic BP 77 mmHg Max Heart Rate 83 BPM Max Predicted Heart Rate 166 BPM Reason For Termination Predetermined end point Reason for Test CAD follow up, syncope Target HR Formula (220 - Age)*100% Arrhythmias none Resting ECG Sinus Bradycardia, anterolat eral TWI left ventricular hypertrophy ST Changes Up Sloping inferior leads Overall Impression Indeterminate due to pharmacological stress Nuclear data reported separately Chest Pain none HR Response To Exercise BP Response To Exercise amlodipine, hydralazine, labetalol lisinopril, captopril, nicardipine Confirmed by fellow Yash Richey [id number]) on 01/08/2020 3:37:33 PM Confirmed by Roni HAQUE BASANT ([id number]) o n 01/21/2020 2:29:07 PM Performing Organization Address [facility] Phone Number GE MUSE ECG 12 lead (01/08/2020 12:38 PM CDT) Specimen Narrative Performed At Ventricular Rate 54 BPM GE MUSE Atrial Rate 54 BPM P-R Interval 156 ms QRS Duration 122 ms Q-T Interval 474 ms QTC Calculation(Bazett) 449 ms P Kyle 56 degrees R Kyle -36 degrees T Kyle 175 degrees Sinus bradycardia Possible Left atrial enlargement Left axis deviation Left ventricular hypertrophy with QRS widening and rep olarization abnormality Possible Anteroseptal infarct , age unde termined Abnormal ECG Confirmed by MD Andersen Mahboob ([id number]) on 01/08/2020 5:0 3:20 PM Procedure Note Interface, External Ris In - 01/08/2020 5:03 PM CDT Ventricular Rate 54 BPM Atrial Rate 54 BPM P-R Interval 156 ms QRS Duration 122 ms Q-T Interval 474 ms QTC Calculation(Bazett) 449 ms P Kyle 56 degrees R Kyle -36 degrees T Kyle 175 degrees Sinus bradycardia Possible Left atrial enlargement Left axis deviation Left ventricular hypertrophy with QRS wi dening and repolarization abnormality Possible Anteroseptal infarct , age unde termined Abnormal ECG Confirmed by MD Andersen Mahboob ([id number]) on 01/08/2020 5:03:20 PM Performing Organization Address [facility] Phone Number [facility] Sodium (01/07/2020 1:33 PM CDT)Only the most recent of6 resultswithin the time period is included. Sodium 141 136 - 145 meq/L [facility] Specimen Blood Narrative Performed At Pediatric Dental Hygienist ID - DB [facility] Performing Organization Address City[facility] Phone Number [address] [address] CENTER Potassium (01/06/2020 2:44 PM CDT) Potassium 3.8 3.5 - 5.1 meq/L [facility] Specimen Blood Narrative Performed At Pediatric Dental Hygienist ID - NTP [facility] Performing Organization Address [facility] Phone Number [address] [address] CENTER CBC with platelet count + automated diff (01/06/2020 4:05 AM CDT)Only the most recent of4 resultswithin the time period is included. WBC 10.0 3.5 - 10.5 K/L [facility] RBC 4.19 (L) 4.63 - 6.08 M/L [facility] Hemoglobin 12.9 (L) 13.7 - 17.5 GM/DL [facility] Hematocrit 39.6 (L) 40.1 - 51.0 % [facility] MCV 94.5 (H) 79.0 - 92.2 fL [facility] MCH 30.8 25.7 - 32.2 pg [facility] MCHC 32.6 32.3 - 36.5 GM/DL [facility] RDW 14.4 11.6 - 14.4 % [facility] Platelets 215 150 - 450 K/CU MM [facility] MPV 10.4 9.4 - 12.4 fL [facility] nRBC 0 0 - 0 /100 WBC [facility] LU'[facility] % Neutros 74 % [facility] % Lymphs 14 % [facility] % Monos 11 % [facility] % Eos 0 % [facility] % Baso 0 % [facility] # Neutros 7.46 (H) 1.78 - 5.38 K/L [facility] # Lymphs 1.43 1.32 - 3.57 K/L [facility] # Monos 1.08 (H) 0.30 - 0.82 K/L [facility] # Eos 0.01 (L) 0.04 - 0.54 K/L [facility] # Baso 0.02 0.01 - 0.08 K/L [facility] Immature Granulocytes-Relative 0 0 - 1 % C HI [facility] Specimen Blood Performing Organization Address City/State/Zipcode Phone Number [facility] [address] [place] [address] brain without IV contrast (01/05/2020 2:42 PM CDT)Only the most recent of2 resultswithin the time period is included. Specimen Narrative Performed At FINAL REPORT GE RIS CT, BRAIN, WITHOUT CONTRAST CLINICAL INDICATION:Intracranial hem orrhage, follow up COMPARISON: None TECHNIQUE:Noncontrast axial CT imagi ng of the brain and skull. DOSE REDUCTION: Dose modulation, iterati ve reconstruction, and/or weight-based adjustment of the mA/kV was utilized to reduce the radiation dose to as low as reasonably a chievable. FINDINGS: No significant interval change in large left intraparenchymal hematoma centered within the basal gangl ia with mild surrounding edema. 7-8mm rightward midline shift and mild rightward subfalcine herniation are similar to prior. Effacement of the left lateral ventricle with minimal dilatation of the right temporal horn is similarly unc hanged. No hydrocephalus. Sulcal effacement within the adjacent le ft cerebral hemisphere is unchanged. No hydrocephalus. Orbits are within normal limits. No obstructive paranasal sinus disease. IMPRESSION: No significant interval detrimental rico ge. Left basal ganglion drainable hematoma, effacement of the ri ght lateral ventricle, 7 mm rightward midline shift with mild subfal cine herniation are all unchanged. No hydrocephalus. No new intr acranial hemorrhage. If there is persistent clinical concern for intracranial pathology, MR examination is recommended for furthe r characterization. Signed: Alex Herrera MD Report Verified Date/Time:01/05/2020 18:07:44 Reading Location: [address] Procedure Note Interface, External Ris In - 01/05/2020 6:09 PM CDT FINAL REPORT CT, BRAIN, WITHOUT CONTRAST CLINICAL INDICATION: Intracranial hemor rhage, follow up COMPARISON: None TECHNIQUE: Noncontrast axial CT imaging of the brain and skull. DOSE REDUCTION: Dose modulation, iterati ve reconstruction, and/or weight-based adjustment of the mA/kV was utilized to reduce the radiation dose to as low as reasonably a chievable. FINDINGS: No significant interval change in large left intraparenchymal hematoma centered within the basal gangl ia with mild surrounding edema. 7-8mm rightward midline shift and mild rightward subfalcine herniation are similar to prior. Effacement of the left lateral ventricle with minimal dilatation of the right temporal horn is similarly unc hanged. No hydrocephalus. Sulcal effacement within the adjacent le ft cerebral hemisphere is unchanged. No hydrocephalus. Orbits are within normal limits. No obstructive paranasal sinus disease. IMPRESSION: No significant interval detrimental rico ge. Left basal ganglion drainable hematoma, effacement of the ri ght lateral ventricle, 7 mm rightward midline shift with mild subfal cine herniation are all unchanged. No hydrocephalus. No new intr acranial hemorrhage. If there is persistent clinical concern for intracranial pathology, MR examination is recommended for furthe r characterization. Signed: Alex Herrera MD Report Verified Date/Time: 01/05/2020 1 8:07:44 Reading Location: [facility] [address] [place] [address] Performing Organization Address City/[facility]/Zipcode Phone Number RIS Troponin I (01/04/2020 11:52 PM CDT)Only the most recent of5 resultswithin the time period is included. Troponin I 0.12 (H) 0.00 - 0.03 ng/mL [facility] Specimen Blood Narrative Performed At Troponin I (TnI) levels must be interpreted [facility] in the context of the presenting symptoms and the clinical findings. Elevated TnI levels indicate myocardial damage, but are not specific for ischemic heart disease. Elevated TnI levels are seen in patients with other cardiac conditions (including myocarditis and congestive heart failure), and slight TnI elevations occur in patients with other conditions, including sepsis, renal failure, acidosis, acute neurological disease, and persistent tachyarrhythmia. Pediatric Dental Hygienist ID - PIAYA L Performing Organization Address City/State/Zipcode Phone Number [facility] [address] [place] [id number] CENTER ECHOCARDIOGRAM REPORT - SCAN (01/04/2020 9:20 PM CDT) Narrative Performed At This result has an attachment that is no t available. XR abdomen / KUB 1 view (01/04/2020 3:27 PM CDT) Specimen Narrative Performed At FINAL REPORT [facility] Abdomen , one view History: Feeding tube placement Comparison:none Findings: Bowel gas pattern is nonobstructed.T he distal aspect of the feeding tube coils once within the stomach and t erminates at the gastric fundus.No definite bowel pneumatosis or portal venous gas.No calcifications along the expected course of the urinary tract. Impression: Feeding tube coils once within the stoma ch and terminates at the gastric fundus. Signed: Gilbert Armas MD Report Verified Date/Time:01/04/2020 15:31:29 Reading Location: [facility] C[address] [facility] sult Reading Room Procedure Note Interface, External Ris In - 01/04/2020 3:33 PM CDT FINAL REPORT Abdomen , one view History: Feeding tube placement Comparison:none Findings: Bowel gas pattern is nonobstructed. The distal aspect of the feeding tube coils once within the stomach and t erminates at the gastric fundus. No definite bowel pneumatosis o r portal venous gas. No calcifications along the expected course of the urinary tract. Impression: Feeding tube coils once within the stoma ch and terminates at the gastric fundus. Signed: Gilbert Armas MD Report Verified Date/Time: 01/04/2020 1 5:31:29 Reading Location: [facility] C013X Ortho Con sult Reading Room Performing Organization Address City/State/Zipcode Phone Number [facility] B-type Natriuretic Factor (BNP) (01/04/2020 10:45 AM CDT) BNP 426 (H) 0 - 100 pg/mL [facility] Specimen Blood Narrative Performed At Pediatric Dental Hygienist ID - SHAHEED Che [facility] Performing Organization Address City/State/Zipcode Phone Number [facility] [address], [place] [phone] CENTER 2D Echo W/O Doppler(No Doppler) (01/04/2020 8:59 AM CDT) Ejection Fraction [facility] ECHO HEAR TLAB [facility] Specimen Narrative Performed At Transthoracic Echocardiography Report (T TE) [facility] ECHO HEARTLAB [facility] Demographics Patient Name Masha ESCAMILLA of Study01/04/2020 SUZIE [id number] Gender Male Visit Number [id number] Pa [id number] Room [id number] Number Date of Birth1965Referring PhysicianEric Levy TAMAYO Age54 year(s)Crown Pouncer Brook FriedmantIzoandrea CheneynInterpreedgar Patel MD Physician Procedure Type of Study TTE procedure:ECHO2D MODE W/O DOPPLER (STAT) Indications:Suspected hypertensive heart disease. Clinical History HGB 14.2 HCT 41.5 % Height: 0 inches Weight: 63.96 kg (141 lbs) BSA: 0 m^2 BMI: 0 kg/m^2 HR: 95 bpm BP: 124/65 mmHg - Results reported to: José Escamilla on 01/04/2020 at 15:31 Summary 1. Normal LV size. LV function is mildly reduced. LVEF is 50-54%. 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 Recommend CMR for further assessment. 2. Diastology: Grade 1 diastolic dysfun ction 3. Normal RV size and function 4. No significant valvular heart diseas e 5. Unable to estimate PASP 6. No pericardial effusion Previous Study No prior studies available for comparis on. Signature Findings Left Ventricle The left ventricle is chamber size (by PSLAX di mension) is normal (male - LVIDd 4.2-5.8 cm) . Mo derate to severe increase in thickness Al l of the LV segments have lmilldy reduce d co ntractility . Gl obal LV systolic function is mildly redu regulo. LV EF by Mcguire's method of disk assessmen t is mi ldly reduced (50-55%) . Th e LVEF was measured using Mcguire's bi-p carri me thod of disk . Gr clara 1 diastolic dysfunction (impaired re laxation an d low-normal LA pressure). Left AtriumLA size is mildly enlarged . Right VentricleThe right ventricular chamber size and systolic fu nction are within normal limits. Right Atrium RA cavity size is normal . Aortic Valve Mild AoV cusp calcification. Ao V cusp mobility is normal . A trace of aortic regurgitation. Mitral Valve Mild mitral annular calcification. Mi ld MV leaflet thickening. Chordal GERBER no alec Tricuspid ValveUnable to estimate peak systolic PA pressure; in adequate TR velocity signal. Pulmonic Valve Normal PV structure and function. AortaAortic root size (Sinus of Valsalva diameter) i s mi ldly dilated. 3.6 cm Proximal ascending aorta si ze is normal . PericardiumNo significant pericardial effusion is visualized. IVC/SVC/PA/PV/PleuralThe estimated RA pressure by IVC dynamics 0-5mmHg . Chambers/Structures Left Atrium LA Volume: 88.07 mlLA Area: 18.41 cm^2 LA Vol. Index: 0 ml/m^2 Left Ventricle LVIDd: 5.19 cm LV Septum Diastolic: 1.55 cm LV PW Diastolic: 1.63 cm LVEDV Mcguire's:140.12 ml LVESV Mcguire's:66.98 ml LVEF Mcguire's: 52.2 % LVEDVI: 0 ml/m^2 LVESVI: 0 ml/m^2 LVOT Diameter: 2.2 cm Right Atrium RA Vol. (Sngl Plane): 3 3.62 ml Right Ventricle RVOT VTI: 17.53 cm TAPSE: 2.42 cm Aorta Ao Root S of Neli.: 3.61 cm Ascending Aorta: 3.4 cm Doppler/Quantitative Measurements Mitral Valve MV Peak E-Wave: 0.82 m/sMV Peak A-Wave: 1.02 m/s E/A Ratio: 0. 8 Peak Gradient: 2.72 mmHg Deceleration Time: 234.4 msec MV Pete. Peak: Tissue Doppler E' Septal Velocity: 0.04 m/sE/E': 9.86 E' Lateral Velocity: 0.08 m/s Aortic Valve Peak Velocity: 1.69 m/sMean Velocity: 1.05 m/s Peak Gradient: 11.38 mmHgMean Gradient: 5.28 mmHg AV Area (continuity): 3.31 cm^2 AV VTI: 24.35 cm AV DVI: 0.87 LVOT Peak Velocity: 1.34 m/s Peak Gradient: 7.15 mmHg Mean Velocity: 0.89 m/s Mean Gradient: 3.82 mmHg LVOT Diameter: 2.2 cm LVOT VTI: 21.21 cm LVOT Area: 3.8 cm^2 LVOT SV:80.59 ml LVOT CO: 7.66 l/min LVOT CI: 0 l/min/m^2 Procedure Note Interface, External Ris In - 01/04/2020 3:36 PM CDT Transthoracic Echocardiography Report (TTE) Demographics Patient Name JOSÉ ESCAMILLA o Study 01/04/2020 SUZIE Gender Male Visit Number [id number] Race [place] [address] Number Date of 1965 Referr ing Physician Jerel Lockett MD Age 54 year(s) Sonogr apher Abed Manoj Commercial Attache Bubba Clifford Interp reting Joao Patel MD Physic savanna Procedure Type of Study TTE procedure:ECHO2D MODE W/O DOPPLER (STAT) Indications:Suspected hypertensive heart disease. Clinical History HGB 14.2 HCT 41.5 % Height: 0 inches Weight: 63.96 kg (141 l bs) BSA: 0 m^2 BMI: 0 kg/m^2 HR: 95 bpm BP: 124/65 mmHg - Results reported to: José Escamilla on 01/04/2020 at 15:31 Summary 1. Normal LV size. LV function is mildl y reduced. LVEF is 50-54%. 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 Recommend CMR for further assessment. 2. Diastology: Grade 1 diastolic dysfun ction 3. Normal RV size and function 4. No significant valvular heart diseas e 5. Unable to estimate PASP 6. No pericardial effusion Previous Study No prior studies available for comparis on. Signature Findings Left Ventricle The left ventric le is chamber size (by PSLAX dimension) is no rmal (male - LVIDd 4.2-5.8cm) . Moderate to tracy re increase in thickness All of the LV se gments have lmilldy reduced contractility . Global LV systol ic function is mildly reduced. LVEF by Mcguire' s method of disk assessment is mildly reduced ( 50-55%) . The LVEF was abdullahi sured using Mcguire's bi-plane method of disk . Grade 1 diastoli c dysfunction (impaired relaxation and low-normal L A pressure). Left Atrium LA size is mildl y enlarged . Right Ventricle The right ventri cular chamber size and systolic function are wit hin normal limits. Right Atrium RA cavity size i s normal . Aortic Valve Mild AoV cusp ca lcification. AoV cusp mobilit y is normal . A trace of aorti c regurgitation. Mitral Valve Mild mitral carlos lar calcification. Mild MV leaflet thickening. Chordal GERBER noted Tricuspid Valve Unable to estima te peak systolic PA pressure; inadequate TR ve locity signal. Pulmonic Valve Normal PV struct ure and function. Aorta Aortic root size (Sinus of Valsalva diameter) is mildly dilated. 3.6 cm Proximal ascending aorta size is normal . Pericardium No significant p ericardial effusion is visualized. IVC/SVC/PA/PV/Pleural The estimated RA pressure by IVC dynamics 0-5mmHg . Chambers/Structures Left Atrium LA Volume: 88.07 ml LA Area: 18.41 cm^2 LA Vol. Index: 0 ml/m^2 Left Ventricle LVIDd: 5.19 cm LV Septum Diastolic: 1.55 cm LV PW Diastolic: 1.63 cm LVEDV Mcguire's:140.12 ml LVESV Mcguire's:66.98 ml LVEF Mcguire's: 52.2 % LVEDVI: 0 ml/m^2 LVESVI: 0 ml/m^2 LVOT Diameter: 2.2 cm Right Atrium RA Vol. (Sngl Plane): 33.62 ml Right Ventricle RVOT VTI: 17.53 cm TAPSE: 2.42 cm Aorta Ao Root S of Neli.: 3.61 cm Ascending Aorta: 3.4 cm Doppler/Quantitative Measurements Mitral Valve MV Peak E-Wave: 0.82 m/s M V Peak A-Wave: 1.02 m/s E /A Ratio: 0.8 P eak Gradient: 2.72 mmHg D eceleration Time: 234.4 msec MV Pete. Peak: Tissue Doppler E' Septal Velocity: 0.04 m/s E /E': 9.86 E' Lateral Velocity: 0.08 m/s Aortic Valve Peak Velocity: 1.69 m/s Mean Velocity: 1.05 m/s Peak Gradient: 11.38 mmHg Mean Gradient: 5.28 mmHg AV Area (continuity): 3.31 cm^2 AV VTI: 24.35 cm AV DVI: 0.87 LVOT Peak Velocity: 1.34 m/s Pea k Gradient: 7.15 mmHg Mean Velocity: 0.89 m/s Abdullahi n Gradient: 3.82 mmHg LVOT Diameter: 2.2 cm LVO T VTI: 21.21 cm LVOT Area: 3.8 cm^2 LVO T SV:80.59 ml LVOT CO: 7.66 l/min LVO T CI: 0 l/min/m^2 Performing Organization Address City/State/Zipcode Phone Number [facility] ECHO HEARTLAB [facility] XR chest 1 view portable / bedside (01/04/2020 8:36 AM CDT) Specimen Narrative Performed At FINAL REPORT GE RIS Chest, one view History: Possible stroke Comparison: none Findings: Patient is rotated towards the left side , limiting assessment. The lungs are grossly clear.Normal size heart.No p leural effusion or pneumothorax. Impression: No acute findings in the chest Signed: Gilbert Armas MD Report Verified Date/Time:01/04/2020 08:48:49 Reading Location: [facility] C013X Ortho Con sult Reading Room Procedure Note Interface, External Ris In - 01/04/2020 8:52 AM CDT FINAL REPORT Chest, one view History: Possible stroke Comparison: none Findings: Patient is rotated towards the left side , limiting assessment. The lungs are grossly clear. Normal size he art. No pleural effusion or pneumothorax. Impression: No acute findings in the chest Signed: Gilbert Armas MD Report Verified Date/Time: 01/04/2020 0 8:48:49 Reading Location: [facility] C013X Ortho Con sult Reading Room Performing Organization Address City/[facility]/Zipcode Phone Number GE RIS Phosphorus (01/04/2020 4:43 AM CDT) Phosphorus 3.6Comment: Specimen slightly 2.3 - 4.7 mg/dL [facility] hemolyzed [facility] Specimen Blood Narrative Performed At Pediatric Dental Hygienist ID - PIAYA L [facility] Once on admission and Daily AM afterward s Once on admission and Daily AM afterwards Performing Organization Address City/[facility]/Zipcode Phone Number [facility] [address] [place] [phone] CENTER Rapid drug screen, urine (01/03/2020 10:16 PM CDT) Barbiturate Screen Negative Negative [facility] Benzodiazepine Screen Negative Negative [facility] Cocaine (Metab.) Screen Positive (A) Negative [facility] Methadone Screen Negative Negative [facility] Opiate Screen Negative Negative [facility] Cannabinoid Screen Positive (A) Negative [facility] Amph/Methamph Screen Negative Negative [facility] Phencyclidine Screen Negative Negative [facility] pH, UA 6.0 5.0 - 8.0 [facility] Specimen Urine Narrative Performed At [facility] CONC. Cocaine 300 ng/mL Jokbjajpowo87 ng /mL Seqirdebjjwfpn741 ng/mL Barbiturate 200 ng/m L Lylewiwcpxgmn21 ng/m L Yoyvlt647 ng/mL Methadone 300 ng /mL Amphetamine/ 1000 ng/mL Methamphetamine This assay provides an unconfirmed qualitative test result for the clinical management of patients in emergency situations. Chain of custody not maintained. Some wxnt-viz-wybvqzh medications, as well as adulterants, may cause inaccurate results. Clinical correlation should be applied. A more comprehensive drug screen or confirmation of a detected drug may be performed upon request. Pediatric Dental Hygienist ID - [id number] Performing Organization Address City/State/Zipcode Phone Number [facility] [address] [place] [address] CENTER Platelet Aggregation: Function Screen (01/03/2020 10:11 PM CDT) Pathologist: Jerri Zuluaga MD [facility] (electronic signature) [facility] Platelets 208 150 - 450 K/CU [facility] MM [facility] ER ADP 27 (L) 62 - 100 % [facility] MEDICAL [facility] Platelet Rich Plasma 264 200 - 300 k/cu [facility] MEDICAL [facility] Plt. Function Screen Decreased aggregation [facility] Interpretation with ADP which [facility] indicates platelet dysfunction that may be due to medication effect, uremia, or other platelet function disorders. Clinical correlation is required. Specimen Blood Narrative Performed At Platelet Function Screen results may be [facility] falsely low with platelet counts <75,000/cu mm. Pediatric Dental Hygienist ID - [id number] Performing Organization Address City/State/Zipcode Phone Number [address] [address] CENTER aPTT (01/03/2020 10:11 PM CDT) PTT 31.9 22.5 - 36.0 seconds [facility] Specimen Blood Performing Organization Address [facility]/Zipcode Phone Number [address] [address] [place] Prothrombin time/INR (01/03/2020 10:11 PM CDT) Protime 14.3 (H) 11.9 - 14.2 seconds [facility] INR 1.1 <=5.9 [facility] Specimen Blood Narrative Performed At Effective 02/05/2019: PT Reference Range [facility] Change New: 11.9-14.2Previous: 11.7-14.7 RECOMMENDED COUMADIN/WARFARIN INR THERAPY RANGES STANDARD DOSE: 2.0-3.0Includes: PROPHYLAXIS for venous thrombosis, systemic embolization; TREATMENT for venous thrombosis and/or pulmonary embolus. HIGH RISK: Target INR is 2.5-3.5 for patients wiht mechanical heart valves. Performing Organization Address [facility] Phone Number [address] [address] CENTER Creatine Kinase (CK) (01/03/2020 10:11 PM CDT) Total CK 630 (H) 29 - 200 U/L [facility] Specimen Blood Narrative Performed At Pediatric Dental Hygienist ID - [id number] [facility] Performing Organization Address [facility]/Zipcode Phone Number [address] [address] [place] Hepatic function panel (01/03/2020 10:11 PM CDT) Protein, Total 8.3Comment: Specimen 6.0 - 8.3 gm/dL [facility] slightly hemolyzed [facility] Albumin 4.2Comment: Specimen 3.5 - 5.0 g/dL [facility] slightly hemolyzed [facility] Total Bilirubin 0.6Comment: Specimen 0.2 - 1.2 mg/dL [facility] slightly hemolyzed MEDICAL [facility] Bilirubin, Direct 0.2Comment: Specimen 0.1 - 0.5 mg/dL [facility] slightly hemolyzed [facility] Alkaline Phosphatase 68 40 - 150 U/L [facility] AST 37 (H)Comment: Specimen 5 - 34 U/L [facility] slightly hemolyzed [facility] ALT 21Comment: Specimen 6 - 55 U/L [facility] slightly hemolyzed [facility] Specimen Blood Narrative Performed At Pediatric Dental Hygienist ID - [id number] [facility] Performing Organization Address City/State/Zipcode Phone Number [facility] [address] [place] [address] CENTER SARS-CoV2/RT-PCR ([facility]) (01/03/2020 8:00 PM CDT) SARS-COV2/RT-PCR Not Detected Not Detected, Negative [facility] SARS-COV-2 PERFORMING LAB [facility] Specimen Other Narrative Performed At Negative results do not preclude SARS-CoV-2 [facility] infection and should not be used as the sole basis for patient management decisions. Negative results must be combined with clinical observations, patient history, and epidemiological information. A false negative result may occur if a specimen is improperly collected, transported or handled. The limit of detection for this assay is 250 copies/mL. This SARS CoV-2 test is a rapid, real-time RT-PCR test intended for the qualitative detection of nucleic acid from SARS-CoV-2 in a nasopharyngeal swab specimen collected from individuals suspected of COVID-19 by their healthcare provider. This test has not been Food and Drug Administration (FDA) cleared or approved and has been authorized by FDA under an Emergency Use Authorization (EUA). This EUA will be effective until the declaration that circumstances exist justifying the authorization of the emergency use of in vitro diagnostic tests for detection and/or diagnosis of COVID-19 is terminated under Section 564(b)(2) of the Act or the EUA is revoked under Section 564(g) of the Act. Fact Sheet for Healthcare Providers: https://www.[employer]/Documents/Xpert%20Xpre ss%20SARS%20CoV-2/Fact%20Sheets/3023802%20SAR S-COV-2%20HEALTHCARE%20PROVIDERS%20FACT%20SHEE T.pdf Fact Sheet for Healthcare Patients: https://www.[employer]/Documents/Xpert%20Xpre ss%20SARS%20CoV-2/Fact%20Sheets/3023801%20SAR S-COV-2%20PATIENT%20FACT%20SHEET.pdf Performing Laboratory: [address] [place] [address] Performing Organization Address City/State/Zipcode Phone Number [facility] [address] [place] [address] CENTER after 02/02/2019 Advance Directives For more information, please contact:[address] [phone] Code Status Date Activated Date Inactivated Comments Full Code 01/03/2020 9:50 PM 01/13/2020 6:27 PM This code status was determined by: Other (please list) has to be determined
--- OUTSIDE RECORDS SUMMARY | 2020-02-03 14:39 | XMS REPORT ---
:1965 Author Organization [facility] t Address [address] [place] [address] Care Team Providers Name Role Phone LENNIE GARCIA Attending Clinician Unavailable LENNIE GARCIA Admitting Clinician Unavailable Problems This patient has no known problems. Allergies, Adverse Reactions, Alerts This patient has no known allergies or adverse reactions. Medications This patient has no known medications. Procedures This patient has no known procedures. Results Test Description Test Time Test Comments Results Result [facility] e Comments MR CARDIAC, 2020-01-12 FINAL REPORT PATIENT ID: WITHOUT 12:00:00 [id number] Cardiac MRI dated 12-Jan-20 INDICATION: This is a 54 year-old male with diagnosis of non-ischaemic cardiomyopathy presents for assessment. TECHNIQUE: Cristi ACHIEVA MRI scanner. Morphologic and dynamic cine imaging were performed in multiple projections before and after contrast administration. Thereafter, gadolinium was administered, which was followed by viability/scar imaging. Finally, flow quantification sequences were performed to determine the degree of valvular dysfunction. Please refer to the contrast sheet scanned in the EPIC system for the amount and route of contrast given. Patient weighs 142 pounds, with height of 65 inches. Scanning blood pressure 149/90. Body surface area is approximately 1.72 sq m. FINDINGS: The chest wall and mediastinum appears unremarkable. The pericardium and pulmonary arteries appear normal. A persistent left-sided SVC is seen, explaining the prominence of the coronary sinus. A right-sided SVC is seen as well, with no bridging vein identified. Limited imaging through the lungs reveals no gross abnormalities; MR is not optimised in the assessment of pulmonary parenchymal lung disease. The cardiac chambers demonstrate normal atrioventricular and ventriculoarterial concordance, and systemic and pulmonary venous return. The thoracic aorta is normal in course, calibre, and contour. No ectasia or aneurysmal dilation is identified. There is no evidence of acute aortic pathology, such as dissection, intramural hematoma, or contained rupture. The left ventricle is enlarged, with at least moderate systolic dysfunction globally. Concentric left ventricular hypertrophy is identified, in the basal septum measure 17 mm and the adjacent lateral wall measures approximately 14 mm. No imaging evidence of left ventricular noncompaction. No turbulence is seen in the left ventricle outflow tract and no systolic anterior motion of the anterior mitral valve leaflet is identified. Quantitative values are as follows: EDV = 245 cc; ESV = 156 cc; stroke volume = 89 cc; and ejection fraction = 36%. Calculated absolute cardiac output = 5.6 liters/min. Absolute left ventricular mass = 235 grams. Indexed LVEDV = 140 cc/sq m confirming left ventricular enlargement. The right ventricle is normal in size and function. Quantitative values are as follows: EDV = 160 cc; ESV = 68 cc; stroke volume = 91 cc; and ejection fraction = 57%. Cine imaging and flow quantification reveals grossly unremarkable mitral, aortic and tricuspid valve function. Trace aortic regurgitation is seen in the cine imaging. Viability/scar imaging reveals uniformly "nulled" myocardium, indicating no prior myocardial damage. All of the left ventricular myocardium appears full thickness and viable. Ventricular thrombus is not present. CONCLUSIONS: 1. Left ventricle is enlarged with at least moderate global systolic dysfunction. Concentric left ventricular hypertrophy is identified, likely consistent with history of hypertension. Ejection fraction is quantified to be 36%. Quantitative left ventricular functional values are as described above. Viability/scar imaging is normal. There is no evidence of prior myocardial damage. No abnormal enhancement of the myocardium is noted after contrast administration. Overall, the appearance suggestive of hypertensive heart disease. No GERBER or left ventricular tract turbulence is noted. 2. The right ventricle is normal in size and function. Quantitative right ventricular functional values as described above. No abnormal enhancement of the right ventricular myocardium is noted after contrast administration. Signed: Carlos Arguello MDReport Verified Date/Time: 01/12/2020 12:00:56 Reading Location: [place] [address] [address] Reading Room -GLUCOSE METER 2020-01-11 12:37:00 Test Item Value Reference Range Interpretation Comme nts POC-GLUCOSE METER (BEAKER) 112 mg/dL 70-110 H : TESTED AT [facility] [address] [place] [address] (test code = 1538) [facility] [address]: Igniter Assembler/Techni pavithra ID = [id number] for ONELIA WALL POCT-GLUCOSE [id number] 08:03:00 Test Item Value Reference Range Interpretation Comments POC-GLUCOSE METER 111 mg/dL 70-110 H : TESTED A T [facility] 6720 (BEAKER) (test code = [place], 1538) [address]: Igniter Assembler/Techni pavithra ID = [id number] for ONELIA ESCOBAR BASIC METABOLIC [id number] 06:57:00 Test Item Value Reference Range Interpretation Comments SODIUM (BEAKER) 139 meq/L 136-145 (test code = 381) POTASSIUM (BEAKER) 4.4 meq/L 3.5-5.1 (test code = 379) CHLORIDE (BEAKER) 108 meq/L 98-107 H (test code = 382) CO2 (BEAKER) (test 25 meq/L 22-29 code = 355) BLOOD UREA NITROGEN 21 mg/dL 7-21 (BEAKER) (test code = 354) CREATININE (BEAKER) 0.83 mg/dL 0.57-1.25 (test code = 358) GLUCOSE RANDOM 103 mg/dL 70-105 (BEAKER) (test code = 652) CALCIUM (BEAKER) 9.4 mg/dL 8.4-10.2 (test code = 697) EGFR (BEAKER) (test 117 mL/min/1.73 ESTIM ATED GFR IS code = 1092) sq m NOT ACCURATE CREATININE CLEARANCE IN PREDICTING GLOMERULAR FILTRATION RATE . ESTIMATED GFR I S NOT APPLICABLE FOR DIALYSIS PATIEN TS. Igniter Assembler ID - KAL WCBC (HEMOGRAM ONLY)2020-01-11 06:49:00 Test Item Value Reference Range Interpretation Comments WHITE BLOOD CELL COUNT (BEAKER) 5.4 K/ L 3.5-10.5 (test code = 775) RED BLOOD CELL COUNT (BEAKER) 4.24 M/ L 4.63-6.08 L (test code = 761) HEMOGLOBIN (BEAKER) (test code = 13.6 GM/DL 13.7-17.5 L 410) HEMATOCRIT (BEAKER) (test code = 40.6 % 40.1-51.0 411) MEAN CORPUSCULAR VOLUME (BEAKER) 95.8 fL 79.0-92.2 H (test code = 753) MEAN CORPUSCULAR HEMOGLOBIN 32.1 pg 25.7-32.2 (BEAKER) (test code = 751) MEAN CORPUSCULAR HEMOGLOBIN CONC 33.5 GM/DL 32.3-36.5 (BEAKER) (test code = 752) RED CELL DISTRIBUTION WIDTH 13.2 % 11.6-14.4 (BEAKER) (test code = 412) PLATELET COUNT (BEAKER) (test 206 K/CU MM 150-450 code = 756) MEAN PLATELET VOLUME (BEAKER) 11.0 fL 9.4-12.4 (test code = 754) NUCLEATED RED BLOOD CELLS 0 /100 WBC 0-0 (BEAKER) (test code = 413) POCT-GLUCOSE [id number] 18:30:00 Test Item Value Reference Range Interpretation Comments POC-GLUCOSE METER 107 mg/dL 70-110 : TESTED A T [facility] 6720 (BEAKER) (test code = [facility], 1538) [address]: Igniter Assembler/Techni pavithra ID = [id number] for HU NT, ONELIA POCT-GLUCOSE [id number] 11:27:00 Test Item Value Reference Range Interpretation Comments POC-GLUCOSE METER 102 mg/dL 70-110 : TESTED A T [facility] 6720 (BEAKER) (test code = [facility], 1538) [address]: Igniter Assembler/Techni pavithra ID = [id number] for HU NT, ONELIA POCT-GLUCOSE [id number] 08:41:00 Test Item Value Reference Range Interpretation Comments POC-GLUCOSE METER 103 mg/dL 70-110 : TESTED A T [facility] 6720 (BEAKER) (test code = [facility], 1538) [address]: Igniter Assembler/Techni pavithra ID = [id number] for BR OWN, GRACE [id number] 06:31:00 Test Item Value Reference Range Interpretation Comments MAGNESIUM (BEAKER) (test code = 1.9 mg/dL 1.6-2.6 627) Igniter Assembler ID - CHEN LBASIC METABOLIC [id number] 06:31:00 Test Item Value Reference Range Interpretation Comments SODIUM (BEAKER) 137 meq/L 136-145 (test code = 381) POTASSIUM (BEAKER) 4.1 meq/L 3.5-5.1 (test code = 379) CHLORIDE (BEAKER) 106 meq/L 98-107 (test code = 382) CO2 (BEAKER) (test 25 meq/L 22-29 code = 355) BLOOD UREA NITROGEN 17 mg/dL 7-21 (BEAKER) (test code = 354) CREATININE (BEAKER) 0.83 mg/dL 0.57-1.25 (test code = 358) GLUCOSE RANDOM 106 mg/dL 70-105 H (BEAKER) (test code = 652) CALCIUM (BEAKER) 9.3 mg/dL 8.4-10.2 (test code = 697) EGFR (BEAKER) (test 117 mL/min/1.73 ESTIM ATED GFR IS code = 1092) sq m NOT ACCURATE CREATININE CLEARANCE IN PREDICTING GLOMERULAR FILTRATION RATE . ESTIMATED GFR I S NOT APPLICABLE FOR DIALYSIS PATIEN TS. Igniter Assembler ID - PIAYA LLIPID [id number] 06:31:00 Test Item Value Reference Range Interpretation Comments TRIGLYCERIDES (BEAKER) (test code = 48 mg/dL 540) CHOLESTEROL (BEAKER) (test code = 134 mg/dL 631) HDL CHOLESTEROL (BEAKER) (test code 50 mg/dL = 976) LDL CHOLESTEROL CALCULATED (BEAKER) 74 mg/dL (test code = 633) Triglyceride Reference Range: Low Risk <150 Borderline 150-199 High Risk 200-499 Very High Risk >=500Cholesterol Reference Range: Low Risk <200 Borderline 200-239 High Risk >240HDL Cholesterol Reference Range: Low Risk >=60 High Risk <40LDL Cholesterol Reference Range: Optimal <100 Near Optimal 100-129 Borderline 130-159 High 160-189 Very High >=190 Igniter Assembler ID - [id number] (HEMOGRAM ONLY)2020-01-10 05:51:00 Test Item Value Reference Range Interpretation Comments WHITE BLOOD CELL COUNT (BEAKER) 5.6 K/ L 3.5-10.5 (test code = 775) RED BLOOD CELL COUNT (BEAKER) 4.23 M/ L 4.63-6.08 L (test code = 761) HEMOGLOBIN (BEAKER) (test code = 13.5 GM/DL 13.7-17.5 L 410) HEMATOCRIT (BEAKER) (test code = 40.6 % 40.1-51.0 411) MEAN CORPUSCULAR VOLUME (BEAKER) 96.0 fL 79.0-92.2 H (test code = 753) MEAN CORPUSCULAR HEMOGLOBIN 31.9 pg 25.7-32.2 (BEAKER) (test code = 751) MEAN CORPUSCULAR HEMOGLOBIN CONC 33.3 GM/DL 32.3-36.5 (BEAKER) (test code = 752) RED CELL DISTRIBUTION WIDTH 13.4 % 11.6-14.4 (BEAKER) (test code = 412) PLATELET COUNT (BEAKER) (test 203 K/CU MM 150-450 code = 756) MEAN PLATELET VOLUME (BEAKER) 10.7 fL 9.4-12.4 (test code = 754) NUCLEATED RED BLOOD CELLS 0 /100 WBC 0-0 (BEAKER) (test code = 413) POCT-GLUCOSE [id number] 20:58:00 Test Item Value Reference Range Interpretation Comments POC-GLUCOSE METER 124 mg/dL 70-110 H : TESTED A T [facility] 6720 (BEAKER) (test code = [facility], 153) [address]: Igniter Assembler/Techni pavithra ID = [id number] for LO PEZ, NADINA POCT-GLUCOSE [id number] 18:28:00 Test Item Value Reference Range Interpretation Comments POC-GLUCOSE METER 147 mg/dL 70-110 H : TESTED A T [facility] 6720 (BEAKER) (test code = [facility], 153) [address]: Igniter Assembler/Techni pavithra ID = [id number] for Sm ith, Ivet POCT-GLUCOSE [id number] 12:38:00 Test Item Value Reference Range Interpretation Comments POC-GLUCOSE METER 145 mg/dL 70-110 H : TESTED A T [facility] 6720 (BEAKER) (test code = [facility], 153) [address]: Igniter Assembler/Techni pavithra ID = [id number] for Sm ith, Ivet BASIC METABOLIC [id number] 07:31:00 Test Item Value Reference Range Interpretation Comments SODIUM (BEAKER) 139 meq/L 136-145 (test code = 381) POTASSIUM (BEAKER) 3.9 meq/L 3.5-5.1 (test code = 379) CHLORIDE (BEAKER) 104 meq/L 98-107 (test code = 382) CO2 (BEAKER) (test 26 meq/L 22-29 code = 355) BLOOD UREA NITROGEN 21 mg/dL 7-21 (BEAKER) (test code = 354) CREATININE (BEAKER) 0.93 mg/dL 0.57-1.25 (test code = 358) GLUCOSE RANDOM 85 mg/dL 70-105 (BEAKER) (test code = 652) CALCIUM (BEAKER) 9.3 mg/dL 8.4-10.2 (test code = 697) EGFR (BEAKER) (test 103 mL/min/1.73 ESTIM ATED GFR IS code = 1092) sq m NOT ACCURATE CREATININE CLEARANCE IN PREDICTING GLOMERULAR FILTRATION RATE . ESTIMATED GFR I S NOT APPLICABLE FOR DIALYSIS PATIEN TS. Igniter Assembler ID - [id number] (HEMOGRAM ONLY)2020-01-09 07:10:00 Test Item Value Reference Range Interpretation Comments WHITE BLOOD CELL COUNT (BEAKER) 5.5 K/ L 3.5-10.5 (test code = 775) RED BLOOD CELL COUNT (BEAKER) 4.41 M/ L 4.63-6.08 L (test code = 761) HEMOGLOBIN (BEAKER) (test code = 13.8 GM/DL 13.7-17.5 410) HEMATOCRIT (BEAKER) (test code = 42.5 % 40.1-51.0 411) MEAN CORPUSCULAR VOLUME (BEAKER) 96.4 fL 79.0-92.2 H (test code = 753) MEAN CORPUSCULAR HEMOGLOBIN 31.3 pg 25.7-32.2 (BEAKER) (test code = 751) MEAN CORPUSCULAR HEMOGLOBIN CONC 32.5 GM/DL 32.3-36.5 (BEAKER) (test code = 752) RED CELL DISTRIBUTION WIDTH 13.8 % 11.6-14.4 (BEAKER) (test code = 412) PLATELET COUNT (BEAKER) (test 202 K/CU MM 150-450 code = 756) MEAN PLATELET VOLUME (BEAKER) 11.4 fL 9.4-12.4 (test code = 754) NUCLEATED RED BLOOD CELLS 0 /100 WBC 0-0 (BEAKER) (test code = 413) POCT-GLUCOSE [id number] 06:21:00 Test Item Value Reference Range Interpretation Comments POC-GLUCOSE METER 113 mg/dL 70-110 H : TESTED A T [facility] 6720 (BEAKER) (test code = ANTHONY [facility], 1538) [address]: Igniter Assembler/Techni pavithra ID = [id number] for WENDY STEPHENS POCT-GLUCOSE [id number] 23:43:00 Test Item Value Reference Range Interpretation Comments POC-GLUCOSE METER 96 mg/dL 70-110 : TESTED A T [facility] 6720 ([employer]) (test code = ANTHONY Shaw [facility], 1538) [address]: Igniter Assembler/Techni pavithra ID = [id number] for WENDY LAY MYOCARD IMAGING, MULTI, PHARM, [id number] 17:06:00FINAL REPORT PROCEDURE: MYOCARDIAL PERFUSION SPECT IMAGING (Rest/Stress)CPT CODE: 97129 INDICATION: Coronary artery disease, follow-up syncope CARDIOVASCULAR PROFILE:Symptoms: SyncopeCAD History: Known CAD, history of MIRisk Factors: Hypertension, smokerMedications: Amlodipine, hydralazine, labetalol, lisinopril, captopril, nicardipine STRESS PROTOCOL:Pharmacologic stress was achieved with a 10-second intravenous infusion of regadenoson 0.4 mg. IMAGING PROTOCOL:10.65 mCi of Tc-99m sestamibi was injected intravenously at rest, and SPECT images were obtained. Then, 31.6 mCi of Tc-99m sestamibi was injected intravenously at peak stress, and SPECT images were obtained. REST FINDINGS:HR: 56 /minBP: 162/89 mmHgPrelim. EKG: Sinus bradycardia.Perfusion: Normal.LV Volume: Normal.RV V olume: Normal. STRESS FINDINGS:HR: 83 /min (50% of MPHR)BP: 145/77 mmHgPrelim. EKG: No ischemic changes.Symptoms: None (treatment not required).Perfusion: Normal.Wall Motion: Global hypokinesis (LVEF 28%).LV Volume: Unchanged from rest. IMPRESSION:1. Abnormal study.2. Normal myocardial perfusion. .3.Abnormal LV function with global hypokinesis.4. Normal extracardiac tracer distribution.5. There is no prior study for comparison. Signed: Eb Escoto Verified Date/Time: 01/08/2020 17:06:03 [facility] METABOLIC [id number] 05:16:00 Test Item Value Reference Range Interpretation Comments SODIUM (BEAKER) 142 meq/L 136-145 (test code = 381) POTASSIUM (BEAKER) 4.2 meq/L 3.5-5.1 (test code = 379) CHLORIDE (BEAKER) 107 meq/L 98-107 (test code = 382) CO2 (BEAKER) (test 31 meq/L 22-29 H code = 355) BLOOD UREA NITROGEN 24 mg/dL 7-21 H (BEAKER) (test code = 354) CREATININE (BEAKER) 1.11 mg/dL 0.57-1.25 (test code = 358) GLUCOSE RANDOM 101 mg/dL 70-105 (BEAKER) (test code = 652) CALCIUM (BEAKER) 9.5 mg/dL 8.4-10.2 (test code = 697) EGFR (BEAKER) (test 84 mL/min/1.73 ESTIMA ANGEL GFR IS code = 1092) sq m NOT ACCURATE CREATININE CLEARANCE IN PREDICTING GLOMERULAR FILTRATION RATE . ESTIMATED GFR I S NOT APPLICABLE FOR DIALYSIS PATIEN TS. Igniter Assembler ID - [id number] (HEMOGRAM ONLY)2020-01-08 05:00:00 Test Item Value Reference Range Interpretation Comments WHITE BLOOD CELL COUNT (BEAKER) 8.0 K/ L 3.5-10.5 (test code = 775) RED BLOOD CELL COUNT (BEAKER) 4.06 M/ L 4.63-6.08 L (test code = 761) HEMOGLOBIN (BEAKER) (test code = 13.1 GM/DL 13.7-17.5 L 410) HEMATOCRIT (BEAKER) (test code = 40.2 % 40.1-51.0 411) MEAN CORPUSCULAR VOLUME (BEAKER) 99.0 fL 79.0-92.2 H (test code = 753) MEAN CORPUSCULAR HEMOGLOBIN 32.3 pg 25.7-32.2 H (BEAKER) (test code = 751) MEAN CORPUSCULAR HEMOGLOBIN CONC 32.6 GM/DL 32.3-36.5 (BEAKER) (test code = 752) RED CELL DISTRIBUTION WIDTH 14.3 % 11.6-14.4 (BEAKER) (test code = 412) PLATELET COUNT (BEAKER) (test 187 K/CU MM 150-450 code = 756) MEAN PLATELET VOLUME (BEAKER) 10.5 fL 9.4-12.4 (test code = 754) NUCLEATED RED BLOOD CELLS 0 /100 WBC 0-0 (BEAKER) (test code = 413) [id number] 13:59:00 Test Item Value Reference Range Interpretation Comments SODIUM (BEAKER) (test code = 381) 141 meq/L 136-145 Igniter Assembler ID - DBPOCT-GLUCOSE [id number] 06:21:00 Test Item Value Reference Range Interpretation Comments POC-GLUCOSE METER 112 mg/dL 70-110 H : [facility] ([facility]ER[facility] (test code = [place], 1538) [address]: Igniter Assembler/Techni pavithra ID = [id number] for YANET PISANO BASIC METABOLIC [id number] 04:29:00 Test Item Value Reference Range Interpretation Comments SODIUM (BEAKER) 144 meq/L 136-145 (test code = 381) POTASSIUM (BEAKER) 3.8 meq/L 3.5-5.1 (test code = 379) CHLORIDE (BEAKER) 110 meq/L 98-107 H (test code = 382) CO2 (BEAKER) (test 29 meq/L 22-29 code = 355) BLOOD UREA NITROGEN 15 mg/dL 7-21 (BEAKER) (test code = 354) CREATININE (BEAKER) 0.66 mg/dL 0.57-1.25 (test code = 358) GLUCOSE RANDOM 112 mg/dL 70-105 H (BEAKER) (test code = 652) CALCIUM (BEAKER) 9.5 mg/dL 8.4-10.2 (test code = 697) EGFR (BEAKER) (test 152 mL/min/1.73 ESTIM ATED GFR IS code = 1092) sq m NOT ACCURATE CREATININE CLEARANCE IN PREDICTING GLOMERULAR FILTRATION RATE . ESTIMATED GFR I S NOT APPLICABLE FOR DIALYSIS PATIEN TS. Igniter Assembler ID - [id number] (HEMOGRAM ONLY)2020-01-07 04:07:00 Test Item Value Reference Range Interpretation Comments WHITE BLOOD CELL COUNT (BEAKER) 8.1 K/ L 3.5-10.5 (test code = 775) RED BLOOD CELL COUNT (BEAKER) 4.21 M/ L 4.63-6.08 L (test code = 761) HEMOGLOBIN (BEAKER) (test code = 13.6 GM/DL 13.7-17.5 L 410) HEMATOCRIT (BEAKER) (test code = 41.2 % 40.1-51.0 411) MEAN CORPUSCULAR VOLUME (BEAKER) 97.9 fL 79.0-92.2 H (test code = 753) MEAN CORPUSCULAR HEMOGLOBIN 32.3 pg 25.7-32.2 H (BEAKER) (test code = 751) MEAN CORPUSCULAR HEMOGLOBIN CONC 33.0 GM/DL 32.3-36.5 (BEAKER) (test code = 752) RED CELL DISTRIBUTION WIDTH 14.5 % 11.6-14.4 H (BEAKER) (test code = 412) PLATELET COUNT (BEAKER) (test 187 K/CU MM 150-450 code = 756) MEAN PLATELET VOLUME (BEAKER) 10.9 fL 9.4-12.4 (test code = 754) NUCLEATED RED BLOOD CELLS 0 /100 WBC 0-0 (BEAKER) (test code = 413) POCT-GLUCOSE [id number] 23:54:00 Test Item Value Reference Range Interpretation Comments POC-GLUCOSE METER 107 mg/dL 70-110 : TESTED A T [facility] 6720 (BEAKER) (test code = [facility], 153) [address]: Igniter Assembler/Techni pavithra ID = [id number] for ALEJANDRO PISANOA [id number] 23:39:00 Test Item Value Reference Range Interpretation Comments SODIUM (BEAKER) (test code = 381) 145 meq/L 136-145 Igniter Assembler ID - DBPOCT-GLUCOSE [id number] 18:31:00 Test Item Value Reference Range Interpretation Comments POC-GLUCOSE METER 111 mg/dL 70-110 H : TESTED A T [facility] 6720 (BEAKER) (test code = [facility], 153) [address]: Igniter Assembler/Techni pavithra ID = [id number] for KENADLL ARAMBULA, TIKEYA [id number] 16:33:00 Test Item Value Reference Range Interpretation Comments SODIUM (BEAKER) (test code = 381) 144 meq/L 136-145 Igniter Assembler ID - [id number] 16:33:00 Test Item Value Reference Range Interpretation Comments POTASSIUM (BEAKER) (test code = 3.8 meq/L 3.5-5.1 379) Igniter Assembler ID - NTPPOCT-GLUCOSE [id number] 12:32:00 Test Item Value Reference Range Interpretation Comments POC-GLUCOSE METER 98 mg/dL 70-110 : TESTED A T [facility] 6720 (BEAKER) (test code = [facility], 1538) [address]: Igniter Assembler/Techni pavithra ID = [id number] for SKYLA DELGADILLO [id number] 11:08:00 Test Item Value Reference Range Interpretation Comments SODIUM (BEAKER) (test code = 381) 141 meq/L 136-145 Igniter Assembler ID - NTPPOCT-GLUCOSE [id number] 06:15:00 Test Item Value Reference Range Interpretation Comments POC-GLUCOSE METER 116 mg/dL 70-110 H : TESTED A T [facility] 6720 (BEAKER) (test code = [facility], 1538) [address]: Igniter Assembler/Techni pavithra ID = [id number] for YANET PISANO BASIC METABOLIC [id number] 04:34:00 Test Item Value Reference Range Interpretation Comments SODIUM (BEAKER) 143 meq/L 136-145 (test code = 381) POTASSIUM (BEAKER) 3.6 meq/L 3.5-5.1 (test code = 379) CHLORIDE (BEAKER) 109 meq/L 98-107 H (test code = 382) CO2 (BEAKER) (test 28 meq/L 22-29 code = 355) BLOOD UREA NITROGEN 19 mg/dL 7-21 (BEAKER) (test code = 354) CREATININE (BEAKER) 0.96 mg/dL 0.57-1.25 (test code = 358) GLUCOSE RANDOM 124 mg/dL 70-105 H (BEAKER) (test code = 652) CALCIUM (BEAKER) 8.9 mg/dL 8.4-10.2 (test code = 697) EGFR (BEAKER) (test 99 mL/min/1.73 ESTIMA ANGEL GFR IS code = 1092) sq m NOT ACCURATE CREATININE CLEARANCE IN PREDICTING GLOMERULAR FILTRATION RATE . ESTIMATED GFR I S NOT APPLICABLE FOR DIALYSIS PATIEN TS. Igniter Assembler ID - JANKI MCBC W/PLT COUNT & AUTO [id number] 04:19:00 Test Item Value Reference Range Interpretation Comments WHITE BLOOD CELL COUNT (BEAKER) 10.0 K/ L 3.5-10.5 (test code = 775) RED BLOOD CELL COUNT (BEAKER) 4.19 M/ L 4.63-6.08 L (test code = 761) HEMOGLOBIN (BEAKER) (test code = 12.9 GM/DL 13.7-17.5 L 410) HEMATOCRIT (BEAKER) (test code = 39.6 % 40.1-51.0 L 411) MEAN CORPUSCULAR VOLUME (BEAKER) 94.5 fL 79.0-92.2 H (test code = 753) MEAN CORPUSCULAR HEMOGLOBIN 30.8 pg 25.7-32.2 (BEAKER) (test code = 751) MEAN CORPUSCULAR HEMOGLOBIN CONC 32.6 GM/DL 32.3-36.5 (BEAKER) (test code = 752) RED CELL DISTRIBUTION WIDTH 14.4 % 11.6-14.4 (BEAKER) (test code = 412) PLATELET COUNT (BEAKER) (test 215 K/CU MM 150-450 code = 756) MEAN PLATELET VOLUME (BEAKER) 10.4 fL 9.4-12.4 (test code = 754) NUCLEATED RED BLOOD CELLS 0 /100 WBC 0-0 (BEAKER) (test code = 413) NEUTROPHILS RELATIVE PERCENT 74 % (BEAKER) (test code = 429) LYMPHOCYTES RELATIVE PERCENT 14 % (BEAKER) (test code = 430) MONOCYTES RELATIVE PERCENT 11 % (BEAKER) (test code = 431) EOSINOPHILS RELATIVE PERCENT 0 % (BEAKER) (test code = 432) BASOPHILS RELATIVE PERCENT 0 % (BEAKER) (test code = 437) NEUTROPHILS ABSOLUTE COUNT 7.46 K/ L 1.78-5.38 H (BEAKER) (test code = 670) LYMPHOCYTES ABSOLUTE COUNT 1.43 K/ L 1.32-3.57 (BEAKER) (test code = 414) MONOCYTES ABSOLUTE COUNT (BEAKER) 1.08 K/ L 0.30-0.82 H (test code = 415) EOSINOPHILS ABSOLUTE COUNT 0.01 K/ L 0.04-0.54 L (BEAKER) (test code = 416) BASOPHILS ABSOLUTE COUNT (BEAKER) 0.02 K/ L 0.01-0.08 (test code = 417) IMMATURE GRANULOCYTES-RELATIVE 0 % 0-1 PERCENT (BEAKER) (test code = 2801) POCT-GLUCOSE [id number] 23:47:00 Test Item Value Reference Range Interpretation Comments POC-GLUCOSE METER 102 mg/dL 70-110 : TESTED A T [facility] 6720 (BEAKER) (test code = [place], 1538) [address]: [employer]sembler/Techni pavithra ID = [id number] for YANET PISANO [id number] 22:48:00 Test Item Value Reference Range Interpretation Comments SODIUM (BEAKER) (test code = 381) 140 meq/L 136-145 [employer]er ID - PIAYA [id number] 18:35:00 Test Item Value Reference Range Interpretation Comments SODIUM (BEAKER) (test code = 381) 140 meq/L 136-145 [employer]iter As[employer]er ID - BSCT, BRAIN, WITHOUT [id number] 18:07:00FINAL REPORT CT, BRAIN, WITHOUT CONTRAST CLINICAL INDICATION: Intracranial hemorrhage, follow up COMPARISON: None TECHNIQUE: Noncontrast axial CT imaging of the brain and skull. DOSE REDUCTION: Dose modulation, iterative reconstruction, and/or weight-based adjustment of the mA/kV was utilized to reduce the radiation dose to as low as reasonably achievable. FINDINGS:No significant interval change in large left intraparenchymal hematoma centered within the basal ganglia with mild surrounding edema. 7-8mm rightward midline shift and mild rightward subfalcine herniation are similar to prior. Effacement of the left lateral ventricle with minimal dilatation of the right temporal horn is similarly unchanged. No hydrocephalus. Sulcal effacement within the adjacent left cerebral hemisphere is unchanged. No hydrocephalus. Orbits are within normal limits. No obstructive paranasal sinus disease. IMPRESSION: No significant interval detrimental change. Left basal ganglion drainable hematoma, effacement of the right lateral ventricle, 7 mm rightward midline shift with mild subfalcine herniation are all unchanged. No hydrocephalus. No new intracranial hemorrhage. If there is persistent clinical concern for intracranial pathology, MR examination is recommended for further characte rization. Signed: Alex Herreraort Verified Date/Time: 01/05/2020 18:07:44 Reading Location: [place] [address]V Neuro Reading Room POCT-GLUCOSE METER 2020-01-05 17:59:00 Test Item Value Reference Range Interpretation Comments POC-GLUCOSE METER 117 mg/dL 70-110 H : [facility] (test code = [facility], 1538) [address]: Igniter Assembler/Techni pavithra ID = [id number] for Rosalba Quintanilla POCT-GLUCOSE [id number] 11:45:00 Test Item Value Reference Range Interpretation Comments POC-GLUCOSE METER 113 mg/dL 70-110 H : [facility] (test code = [facility], 1538) [address]: Igniter Assembler/Techni pavithra ID = [id number] for Rosalba Quintanilla POCT-GLUCOSE [id number] 06:27:00 Test Item Value Reference Range Interpretation Comments POC-GLUCOSE METER 118 mg/dL 70-110 H : Notified RN/MD: ([facility]) (test code = TESTED AT [facility] 6720 1538) [facility], [address]: Igniter Assembler/Techni pavithra ID = [id number] for NAOMI OSEGUERA BASIC METABOLIC [id number] 05:53:00 Test Item Value Reference Range Interpretation Comments SODIUM (BEAKER) 138 meq/L 136-145 (test code = 381) POTASSIUM (BEAKER) 4.0 meq/L 3.5-5.1 Specimen slightly (test code = 379) hemolyzed CHLORIDE (BEAKER) 107 meq/L 98-107 (test code = 382) CO2 (BEAKER) (test 21 meq/L 22-29 L code = 355) BLOOD UREA NITROGEN 15 mg/dL 7-21 (BEAKER) (test code = 354) CREATININE (BEAKER) 0.94 mg/dL 0.57-1.25 Specimen slightly (test code = 358) hemolyzed GLUCOSE RANDOM 114 mg/dL 70-105 H (BEAKER) (test code = 652) CALCIUM (BEAKER) 9.2 mg/dL 8.4-10.2 (test code = 697) EGFR (BEAKER) (test 101 mL/min/1.73 ESTIM ATED GFR IS code = 1092) sq m NOT ACCURATE CREATININE CLEARANCE IN PREDICTING GLOMERULAR FILTRATION RATE . ESTIMATED GFR I S NOT APPLICABLE FOR DIALYSIS PATIEN TS. Igniter Assembler ID - PIAYA LCBC W/PLT COUNT & AUTO [id number] 04:55:00 Test Item Value Reference Range Interpretation Comments WHITE BLOOD CELL COUNT (BEAKER) 9.8 K/ L 3.5-10.5 (test code = 775) RED BLOOD CELL COUNT (BEAKER) 4.60 M/ L 4.63-6.08 L (test code = 761) HEMOGLOBIN (BEAKER) (test code = 14.2 GM/DL 13.7-17.5 410) HEMATOCRIT (BEAKER) (test code = 43.7 % 40.1-51.0 411) MEAN CORPUSCULAR VOLUME (BEAKER) 95.0 fL 79.0-92.2 H (test code = 753) MEAN CORPUSCULAR HEMOGLOBIN 30.9 pg 25.7-32.2 (BEAKER) (test code = 751) MEAN CORPUSCULAR HEMOGLOBIN CONC 32.5 GM/DL 32.3-36.5 (BEAKER) (test code = 752) RED CELL DISTRIBUTION WIDTH 14.2 % 11.6-14.4 (BEAKER) (test code = 412) PLATELET COUNT (BEAKER) (test 224 K/CU MM 150-450 code = 756) MEAN PLATELET VOLUME (BEAKER) 10.8 fL 9.4-12.4 (test code = 754) NUCLEATED RED BLOOD CELLS 0 /100 WBC 0-0 (BEAKER) (test code = 413) NEUTROPHILS RELATIVE PERCENT 85 % (BEAKER) (test code = 429) LYMPHOCYTES RELATIVE PERCENT 10 % (BEAKER) (test code = 430) MONOCYTES RELATIVE PERCENT 5 % (BEAKER) (test code = 431) EOSINOPHILS RELATIVE PERCENT 0 % (BEAKER) (test code = 432) BASOPHILS RELATIVE PERCENT 0 % (BEAKER) (test code = 437) NEUTROPHILS ABSOLUTE COUNT 8.31 K/ L 1.78-5.38 H (BEAKER) (test code = 670) LYMPHOCYTES ABSOLUTE COUNT 0.95 K/ L 1.32-3.57 L (BEAKER) (test code = 414) MONOCYTES ABSOLUTE COUNT (BEAKER) 0.53 K/ L 0.30-0.82 (test code = 415) EOSINOPHILS ABSOLUTE COUNT 0.00 K/ L 0.04-0.54 L (BEAKER) (test code = 416) BASOPHILS ABSOLUTE COUNT (BEAKER) 0.02 K/ L 0.01-0.08 (test code = 417) IMMATURE GRANULOCYTES-RELATIVE 0 % 0-1 PERCENT (BEAKER) (test code = 2801) SARS-COV2/RT-PCR ([facility])2020-01-05 00:37:00 Test Item Value Reference Range Interpretation Comments SARS-COV2/RT-PCR (test Not Detected Not Detected, Negative code = 8465477) SARS-COV-2 PERFORMING LAB [facility] (test code = 0965706) Negative results do not preclude SARS-CoV-2 infection and should not be used as the sole basis for patient management decisions. Negative results must be combined with clinical observations, patient history, and epidemiological information. A false negative result may occur if a specimen is improperly collected, transported or handled.The limit of detection for this assay is 250 copies/mL.This SARS CoV-2 test is a rapid, real-time RT-PCR test intended for the qualitative detection of nucleic acid from SARS-CoV-2 in a nasopharyngeal swab specimen collected from individuals suspected of COVID-19 by their healthcare provider.This test has not been Food and Drug [...] is revoked under Section 564(g) of the Act.Fact Sheet for Healthcare Pro viders:https://www.[employer].com/Documents/Xpert%20Xpress%20SARS%20CoV-2/Fact%20Sh eets/814-0542%64ULTA-KQN-1%20HEALTHCARE%20PROVIDERS%20FACT%20SHEET.pdfFact Sheet for Healthcare Patients:https://www.[employer]/Documents/Xpert%20Xpress%20SARS%20CoV-2/Fact%20Sheets/450-3801%20SARS-COV -2%20PATIENT%20FACT%20SHEET.pdfPerforming Laboratory:[facility] [place], [place] [address]XRKH-MVLPSCV [id number] 00:34:00 Test Item Value Reference Range Interpretation Comments POC-GLUCOSE METER 118 mg/dL 70-110 H : Notified RN/MD: ([place]) (test code = TESTED AT [facility] 6720 1538) [facility], [address]: Igniter Assembler/Techni pavithra ID = [id number] for NAOMI OSEGUERA TROPONIN [id number] 00:24:00 Test Item Value Reference Range Interpretation Comments TROPONIN I ([facility]) (test code = 0.12 ng/mL 0.00-0.03 H 397) Troponin I (TnI) levels must be interpreted in the context of the presenting symptoms and the clinical findings. Elevated TnI levels indicate myocardial damage, but are not specific for ischemic heart disease. Elevated TnI levels are seen in patients with other cardiac conditions (including myocarditis and congestive heart failure), and slight TnI elevations occur in patients with other conditions, including sepsis, renal failure, acidosis, acute neurological disease, and persistent tachyarrhythmia.Igniter Assembler ID - PIAYA LTROPONIN I 2020-01-04 19:00:00 Test Item Value Reference Range Interpretation Comments TROPONIN I (FLOY[place]) (test code = 0.12 ng/mL 0.00-0.03 H 397) Troponin I (TnI) levels must be interpreted in the context of the presenting symptoms and the clinical findings. Elevated TnI levels indicate myocardial damage, but are not specific for ischemic heart disease. Elevated TnI levels are seen in patients with other cardiac conditions (including myocarditis and congestive heart failure), and slight TnI elevations occur in patients with other conditions, including sepsis, renal failure, acidosis, acute neurological disease, and persistent tachyarrhythmia.Igniter Assembler ID - [id number] METER 2020-01-04 17:31:00 Test Item Value Reference Range Interpretation Comments POC-GLUCOSE METER 91 mg/dL 70-110 : TESTED A T [facility] 6720 ([place]) (test code = ANTHONY Shaw [facility], 1538) [address]: Igniter Assembler/Techni pavithra ID = [id number] for Step toe, Carri RAD, ABDOMEN/KUB, 1 VIEW [id number] 15:31:00Reason for exam:->feeding tube placement verifciationFINAL REPORT Abdomen , one view History: Feeding tube placement Comparison:none Findings:Bowel gas pattern is nonobstructed. The distal aspect of the feeding tube coils once within the stomach and terminates at the gastric fundus. No definite bowel pneumatosis or portal venousgas. No calcifications along the expected course of the urinary tract. Impression:Feeding tube coils once within the stomach and terminates at the gastric fundus. Signed: Gilbert Armas MDReport Verified Date/Time: 01/04/2020 15:31:29 Reading Location: [place] [address]X Ortho Consult Reading Room POCT- GLUCOSE [id number] 13:35:00 Test Item Value Reference Range Interpretation Comments POC-GLUCOSE METER 107 mg/dL 70-110 : TESTED A T [facility] 6720 ([facility]) (test code = ANTHONY Shaw [facility], 1538) [address]: Igniter Assembler/Techni pavithra ID = [id number] [facility] PLATELET AGGREGATION: FUNCTION [id number] 12:49:00 Test Item Value Reference Range Interpretation Comments [id number] Jerri Zuluaga (BEAKER) (test code = (electronic 4900) signature) PLATELET COUNT AGG 208 K/CU MM 150-450 (BEAKER) (test code = 2656) PLATELET RICH 264 k/cu mm 200-300 PLASMA(BEAKER) (test code = 2134) PLATELET FUNCTION SCREEN Decreased aggregation INTERPRETATION (eDealyaAKER) with ADP which (test code = 4655) indicates platelet dysfunction that may be due to medication effect, uremia, or other platelet function disorders. Clinical correlation is required. ADP (BEAKER) (test code 27 % 62-100 L = 4654) Platelet Function Screen results may be falsely low with platelet counts<75,000/cu mm.Igniter Assembler ID- [id number] NATRIURETIC FACTOR (BNP) 2020-01-04 11:28:00 Test Item Value Reference Range Interpretation Comments B-TYPE NATRIURETIC PEPTIDE (BEAKER) 426 pg/mL 0-100 H (test code = 700) Igniter Assembler ID - SHAHEED SCHAFFER [id number] 11:27:00 Test Item Value Reference Range Interpretation Comments TROPONIN I (FLOYD) (test code = 0.14 ng/mL 0.00-0.03 H 397) Troponin I (TnI) levels must be interpreted in the context of the presenting symptoms and the clinical findings. Elevated TnI levels indicate myocardial damage, but are not specific for ischemic heart disease. Elevated TnI levels are seen in patients with other cardiac conditions (including myocarditis and congestive heart failure), and slight TnI elevations occur in patients with other conditions, including sepsis, renal failure, acidosis, acute neurological disease, and persistent tachyarrhythmia.Igniter Assembler ID - SHAHEED SCHAFFER [id number] 09:41:00 Test Item Value Reference Range Interpretation Comments TROPONIN I (FLOYD) (test code = 0.12 ng/mL 0.00-0.03 H 397) Troponin I (TnI) levels must be interpreted in the context of the presenting symptoms and the clinical findings. Elevated TnI levels indicate myocardial damage, but are not specific for ischemic heart disease. Elevated TnI levels are seen in patients with other cardiac conditions (including myocarditis and congestive heart failure), and slight TnI elevations occur in patients with other conditions, including sepsis, renal failure, acidosis, acute neurological disease, and persistent tachyarrhythmia.Igniter Assembler ID - SHAHEED Clarissa on admission and Daily AM afterwardsOnce on admission and Daily AM afterwardsRAD, CHEST, 1 VIEW, NON [id number] 08:48:00Reason for exam:->strokeShould this be performed at the bedside?->YesFINAL REPORT Chest, one view History: Possible stroke Comparison: none Findings:Patient is rotated towards the left side, limiting assessment. The lungs are grossly clear. Normal size heart. No pleural effusion or pneumothorax. Impression:No acute findings in the chest Signed: Gilbert Armas Verified Date/Time: 01/04/2020 08:48:49 Reading Location: [facility] C013X [facility] Consult Reading Room POCT-GLUCOSE [id number] 06:52:00 Test Item Value Reference Range Interpretation Comments POC-GLUCOSE METER 89 mg/dL 70-110 : TESTED A T [facility] 6720 (BEAKER) (test code = [place], 1538) [address]: Igniter Assembler/Techni pavithra ID = [id number] for MEREDITH URIARTE [id number] 05:48:00 Test Item Value Reference Range Interpretation Comments MAGNESIUM (BEAKER) 1.8 mg/dL 1.6-2.6 Specimen slightly (test code = 627) hemolyzed Igniter Assembler GERONIMO - CHEN Lugo on admission and Daily AM afterwardsOnce on admission and Daily AM [id number] 05:48:00 Test Item Value Reference Range Interpretation Comments PHOSPHORUS (BEAKER) 3.6 mg/dL 2.3-4.7 Specimen slightly (test code = 604) hemolyzed Igniter Assembler GERONIMO - CHEN Lugo on admission and Daily AM afterwardsOnce on admission and Daily AM afterwardsBASIC METABOLIC [id number] 05:48:00 Test Item Value Reference Range Interpretation Comments SODIUM (BEAKER) 140 meq/L 136-145 (test code = 381) POTASSIUM (BEAKER) 3.7 meq/L 3.5-5.1 Specimen slightly (test code = 379) hemolyzed CHLORIDE (BEAKER) 108 meq/L 98-107 H (test code = 382) CO2 (BEAKER) (test 22 meq/L 22-29 code = 355) BLOOD UREA NITROGEN 12 mg/dL 7-21 (BEAKER) (test code = 354) CREATININE (BEAKER) 1.10 mg/dL 0.57-1.25 Specimen slightly (test code = 358) hemolyzed GLUCOSE RANDOM 96 mg/dL 70-105 (BEAKER) (test code = 652) CALCIUM (BEAKER) 9.3 mg/dL 8.4-10.2 (test code = 697) EGFR (BEAKER) (test 85 mL/min/1.73 ESTIMA ANGEL GFR IS code = 1092) sq m NOT ACCURATE CREATININE CLEARANCE IN PREDICTING GLOMERULAR FILTRATION RATE . ESTIMATED GFR I S NOT APPLICABLE FOR DIALYSIS PATIEN TS. Igniter Assembler ID - CHEN Lugo on admission and Daily AM afterwardsOnce on admission and Daily AM afterwardsCBC W/PLT COUNT & AUTO [id number] 05:12:00 Test Item Value Reference Range Interpretation Comments WHITE BLOOD CELL COUNT (BEAKER) 10.4 K/ L 3.5-10.5 (test code = 775) RED BLOOD CELL COUNT (BEAKER) 4.40 M/ L 4.63-6.08 L (test code = 761) HEMOGLOBIN (BEAKER) (test code = 14.2 GM/DL 13.7-17.5 410) HEMATOCRIT (BEAKER) (test code = 41.5 % 40.1-51.0 411) MEAN CORPUSCULAR VOLUME (BEAKER) 94.3 fL 79.0-92.2 H (test code = 753) MEAN CORPUSCULAR HEMOGLOBIN 32.3 pg 25.7-32.2 H (BEAKER) (test code = 751) MEAN CORPUSCULAR HEMOGLOBIN CONC 34.2 GM/DL 32.3-36.5 (BEAKER) (test code = 752) RED CELL DISTRIBUTION WIDTH 14.0 % 11.6-14.4 (BEAKER) (test code = 412) PLATELET COUNT (BEAKER) (test 205 K/CU MM 150-450 code = 756) MEAN PLATELET VOLUME (BEAKER) 10.8 fL 9.4-12.4 (test code = 754) NUCLEATED RED BLOOD CELLS 0 /100 WBC 0-0 (BEAKER) (test code = 413) NEUTROPHILS RELATIVE PERCENT 81 % (BEAKER) (test code = 429) LYMPHOCYTES RELATIVE PERCENT 11 % (BEAKER) (test code = 430) MONOCYTES RELATIVE PERCENT 7 % (BEAKER) (test code = 431) EOSINOPHILS RELATIVE PERCENT 0 % (BEAKER) (test code = 432) BASOPHILS RELATIVE PERCENT 0 % (BEAKER) (test code = 437) NEUTROPHILS ABSOLUTE COUNT 8.40 K/ L 1.78-5.38 H (BEAKER) (test code = 670) LYMPHOCYTES ABSOLUTE COUNT 1.18 K/ L 1.32-3.57 L (BEAKER) (test code = 414) MONOCYTES ABSOLUTE COUNT (BEAKER) 0.75 K/ L 0.30-0.82 (test code = 415) EOSINOPHILS ABSOLUTE COUNT 0.02 K/ L 0.04-0.54 L (BEAKER) (test code = 416) BASOPHILS ABSOLUTE COUNT (BEAKER) 0.04 K/ L 0.01-0.08 (test code = 417) IMMATURE GRANULOCYTES-RELATIVE 0 % 0-1 PERCENT (BEAKER) (test code = 2801) TROPONIN [id number] 02:59:00 Test Item Value Reference Range Interpretation Comments TROPONIN I (BEAKER) (test code = 0.08 ng/mL 0.00-0.03 H 397) Troponin I (TnI) levels must be interpreted in the context of the presenting symptoms and the clinical findings. Elevated TnI levels indicate myocardial damage, but are not specific for ischemic heart disease. Elevated TnI levels are seen in patients with other cardiac conditions (including myocarditis and congestive heart failure), and slight TnI elevations occur in patients with other conditions, including sepsis, renal failure, acidosis, acute neurological disease, and persistent tachyarrhythmia.Igniter Assembler ID - PIAYA LCT, BRAIN, WITHOUT [id number] 02:35:00FINAL REPORT EXAM: CT, BRAIN, WITHOUT CONTRAST CLINICAL INDICATION: Known intracranial hemorrhage. TECHNIQUE: CT images from skull base to vertex without IV contrast. This exam was performed according to the departmental dose optimization program which includes automated exposure control, adjustment of the mA and/or kV according to the patient size, and/or use of an iterative reconstruction technique. COMPARISON: None FINDINGS: Parenchyma: Intracranial hemorrhage centeredat the left basal ganglia with measurements of 6.9 x 2.3 x 3.8 cm (30 cc). There is associated surrounding vasogenic edema and shift of midline structures from left to right of 0.8 cm. The left lateralventricle is effaced and the right temporal horn is mildly enlarged. No intraventricular hemorrhage.There is left uncal medialization without celine downward herniation. No evidence of a separate infarction. Extra-axial Collection: None Ventricular System: Mildly prominent right temporal horn, as above, concerning for entrapment. Osseous Structures: No acute osseous abnormality. Included Orbits: Normal Paranasal Sinuses: Predominantly clear Tympanomastoid Cavities: Normal Other: None I MPRESSION:Acute parenchymal hemorrhage (30 cc) centered at the left basal ganglia with rightward shift of 0.8 cm and suggested mild right lateral ventricle entrapment. No intraventricular hemorrhage. Signed: Maria Alejandra Graf MDReport Verified Date/Time: 01/04/2020 02:35:34 POCT-GLUCOSE [id number] 00:20:00 Test Item Value Reference Range Interpretation Comments POC-GLUCOSE METER 87 mg/dL 70-110 : TESTED A T [facility] 6720 (BEAKER) (test code = ANTHONY Shaw [facility], 1538) [address]: Igniter Assembler/Techni pavithra ID = [id number] for MEREDITH URIARTE RAPID DRUG SCREEN, [id number] 22:55:00 Test Item Value Reference Range Interpretation Comments BARBITURATE URINE (BEAKER) (test Negative Negative code = 725) BENZODIAZEPINE SCREEN URINE (BEAKER) Negative Negative (test code = 726) COCAINE (METAB.) SCREEN (BEAKER) Positive Negative A (test code = 1164) METHADONE SCREEN (BEAKER) (test code Negative Negative = 1436) OPIATE SCREEN URINE (BEAKER) (test Negative Negative code = 734) CANNABINOID SCREEN URINE (BEAKER) Positive Negative A (test code = 727) AMPH/METHAMPH SCREEN (BEAKER) (test Negative Negative code = 1438) PHENCYCLIDINE SCREEN URINE (BEAKER) Negative Negative (test code = 608) PH UA (BEAKER) (test code = 467) 6.0 5.0-8.0 DRUG CUTOFF CONC.Cocaine 300 ng/mL Cannabinoid 50 ng/mLBenzodiazepine 200 ng/mLBarbiturate 200 ng/mLPhencyclidine 25 ng/mLOpiate 300 ng/mLMethadone 300 ng/mLAmphetamine/ 1000 ng/mL MethamphetamineThis assay provides an unconfirmed qualitative test result for the clinical management of patients in emergency situations. Chain of custody not maintained. Some icag-ckb-wlszwhq medications, as well as adulterants, may cause inaccurate results. Clinical correlation should be applied. A more comprehensivedrug screen or confirmation of a detected drug may be performed upon request.Igniter Assembler ID - DBBASIC METABOLIC [id number] 22:33:00 Test Item Value Reference Range Interpretation Comments SODIUM (BEAKER) 139 meq/L 136-145 (test code = 381) POTASSIUM (BEAKER) 4.1 meq/L 3.5-5.1 Specimen slightly (test code = 379) hemolyzed CHLORIDE (BEAKER) 108 meq/L 98-107 H (test code = 382) CO2 (BEAKER) (test 23 meq/L 22-29 code = 355) BLOOD UREA NITROGEN 12 mg/dL 7-21 (BEAKER) (test code = 354) CREATININE (BEAKER) 1.10 mg/dL 0.57-1.25 Specimen slightly (test code = 358) hemolyzed GLUCOSE RANDOM 81 mg/dL 70-105 (BEAKER) (test code = 652) CALCIUM (BEAKER) 9.7 mg/dL 8.4-10.2 (test code = 697) EGFR (BEAKER) (test 85 mL/min/1.73 ESTIMA ANGEL GFR IS code = 1092) sq m NOT ACCURATE CREATININE CLEARANCE IN PREDICTING GLOMERULAR FILTRATION RATE . ESTIMATED GFR I S NOT APPLICABLE FOR DIALYSIS PATIEN TS. Igniter Assembler ID - DBHEPATIC FUNCTION [id number] 22:33:00 Test Item Value Reference Range Interpretation Comments TOTAL PROTEIN (BEAKER) 8.3 gm/dL 6.0-8.3 Speci men slightly (test code = 770) hemolyzed ALBUMIN (BEAKER) (test 4.2 g/dL 3.5-5.0 Speci men slightly code = 1145) hemolyzed BILIRUBIN TOTAL 0.6 mg/dL 0.2-1.2 Specimen sli ghtly (BEAKER) (test code = hemoly zed 377) BILIRUBIN DIRECT 0.2 mg/dL 0.1-0.5 Specimen sl ightly (BEAKER) (test code = hemoly zed 706) ALKALINE PHOSPHATASE 68 U/L 40-150 (BEAKER) (test code = 346) AST (SGOT) (BEAKER) 37 U/L 5-34 H Specimen slightly (test code = 353) hemolyzed ALT (SGPT) (BEAKER) 21 U/L 6-55 Specimen slightly (test code = 347) hemolyzed Igniter Assembler ID - DBCREATINE KINASE (CK)2020-01-03 22:33:00 Test Item Value Reference Range Interpretation Comments CREATINE KINASE TOTAL (BEAKER) (test 630 U/L 29-200 H code = 380) Igniter Assembler ID - [id number] 22:32:00 Test Item Value Reference Range Interpretation Comments PARTIAL THROMBOPLASTIN TIME 31.9 seconds 22.5-36.0 (BEAKER) (test code = 760) PROTHROMBIN TIME/[id number] 22:31:00 Test Item Value Reference Range Interpretation Comments PROTIME (BEAKER) (test code = 14.3 seconds 11.9-14.2 H 759) INR (BEAKER) (test code = 370) 1.1 <=5.9 Effective 02/05/2019: PT Reference Range ChangeNew: 11.9-14.2 Previous: 11.7- 14.7RECOMMENDED COUMADIN/WARFARIN INR THERAPY RANGESSTANDARD DOSE: 2.0-3.0 Includes: PROPHYLAXIS for venous thrombosis, systemic embolization; TREATMENT for venous thrombosis and/or pulmonary embolus.HIGH RISK: Target INR is2.5-3.5 for patients wiht mechanical heart valves.CBC W/PLT COUNT & AUTO [id number] 22:17:00 Test Item Value Reference Range Interpretation Comments WHITE BLOOD CELL COUNT (BEAKER) 6.7 K/ L 3.5-10.5 (test code = 775) RED BLOOD CELL COUNT (BEAKER) 4.56 M/ L 4.63-6.08 L (test code = 761) HEMOGLOBIN (BEAKER) (test code = 14.6 GM/DL 13.7-17.5 410) HEMATOCRIT (BEAKER) (test code = 43.6 % 40.1-51.0 411) MEAN CORPUSCULAR VOLUME (BEAKER) 95.6 fL 79.0-92.2 H (test code = 753) MEAN CORPUSCULAR HEMOGLOBIN 32.0 pg 25.7-32.2 (BEAKER) (test code = 751) MEAN CORPUSCULAR HEMOGLOBIN CONC 33.5 GM/DL 32.3-36.5 (BEAKER) (test code = 752) RED CELL DISTRIBUTION WIDTH 14.1 % 11.6-14.4 (BEAKER) (test code = 412) PLATELET COUNT (BEAKER) (test 207 K/CU MM 150-450 code = 756) MEAN PLATELET VOLUME (BEAKER) 10.3 fL 9.4-12.4 (test code = 754) NUCLEATED RED BLOOD CELLS 0 /100 WBC 0-0 (BEAKER) (test code = 413) NEUTROPHILS RELATIVE PERCENT 64 % (BEAKER) (test code = 429) LYMPHOCYTES RELATIVE PERCENT 25 % (BEAKER) (test code = 430) MONOCYTES RELATIVE PERCENT 10 % (BEAKER) (test code = 431) EOSINOPHILS RELATIVE PERCENT 1 % (BEAKER) (test code = 432) BASOPHILS RELATIVE PERCENT 1 % (BEAKER) (test code = 437) NEUTROPHILS ABSOLUTE COUNT 4.25 K/ L 1.78-5.38 (BEAKER) (test code = 670) LYMPHOCYTES ABSOLUTE COUNT 1.70 K/ L 1.32-3.57 (BEAKER) (test code = 414) MONOCYTES ABSOLUTE COUNT (BEAKER) 0.64 K/ L 0.30-0.82 (test code = 415) EOSINOPHILS ABSOLUTE COUNT 0.05 K/ L 0.04-0.54 (BEAKER) (test code = 416) BASOPHILS ABSOLUTE COUNT (BEAKER) 0.04 K/ L 0.01-0.08 (test code = 417) IMMATURE GRANULOCYTES-RELATIVE 0 % 0-1 PERCENT (BEAKER) (test code = 6462)
[2020-02-03] MEDS ORDERED: DIPHENHYDRAMINE 50 MG/ML VIAL ONE (16:05)
[2020-02-03] MEDS ORDERED: FAMOTIDINE 20 MG/2 ML VIAL IV ONE (16:05)
[2020-02-03] MEDS ORDERED: dexAMETHasone 10 MG/ML VIAL ONE (16:05)
[2020-02-03 18:14] VITALS: TEMP 98.6
[2020-02-03 18:18] VITALS: BP 125/88; O2SAT 98
--- NOTE | 2020-02-09 13:33 | ER ---
Nurse's Notes [facility] Name: José Miller Age: 54 yrs Sex: Male : 1965 Arrival Date: 02/03/2020 Time: 14:37 Bed 17 Private MD: Diagnosis: Angioneurotic edema Presentation: 02/02 14:47 Chief complaint: Spouse and/or significant other states: started having swelling to iw lips last night, then started having swelling to sofiya jaw area, no tongue swelling, recently has a massive stroke, had bleeding on left side of brain, no known allergies, started lisinopril after his stroke about a month ago, was seen at [facility]. Coronavirus screen: Proceed with normal triage. Patient denies a cough. Patient denies shortness of breath or difficulty breathing. Patient denies measured and/or subjective temperature greater than 100.4F prior to today's visit. Patient denies travel on a cruise ship or to a country the [facility] currently lists as an affected area. Patient denies contact with known and/or suspected case of COVID-19. Ebola Screen: Patient negative for fever greater than or equal to 101.5 degrees Fahrenheit, and additional compatible Ebola Virus Disease symptoms Patient denies exposure to infectious person. Patient denies travel to an Ebola-affected area in the 21 days before illness onset. No symptoms or risks identified at this time. Initial Sepsis Screen: Does the patient meet any 2 criteria? No. Patient's initial sepsis screen is negative. Does the patient have a suspected source of infection? No. Patient's initial sepsis screen is negative. Risk Assessment: Do you want to hurt yourself or someone else? Patient reports no desire to harm self or others. Onset of symptoms was February 02, 2020. 14:47 Method Of Arrival: Ambulatory iw 14:47 Acuity: CHAMP 3 iw Triage Assessment: 14:50 General: Appears in no apparent distress. comfortable, Behavior is cooperative, bp appropriate for age, anxious. Pain: Denies pain. EENT: LIP SWELLING. Neuro: AT BASELINE. Cardiovascular: No deficits noted. Respiratory: No deficits noted. GI: No signs and/or symptoms were reported involving the gastrointestinal system. : No signs and/or symptoms were reported regarding the genitourinary system. Derm: No deficits noted. Musculoskeletal: No deficits noted. Historical: - Allergies: 14:52 No Known Allergies; iw - Home Meds: 14:52 amlodipine 10 mg tab 1 tab once daily [Active]; hydralazine 50 mg Oral tab three times iw a day [Active]; lisinopril 40 mg Oral tab 1 tab once daily [Active]; - PMHx: 14:52 Hypertension; CVA; iw - PSHx: 14:52 None; iw - Immunization history:: Adult Immunizations not up to date. - Social history:: Smoking status: Patient/guardian denies using tobacco, Stopped _ months ago 1. Screenin:14 Abuse screen: Denies threats or abuse. Nutritional screening: No deficits noted. rb1 Tuberculosis screening: No symptoms or risk factors identified. Fall Risk None identified. Assessment: 15:14 General: Appears in no apparent distress. comfortable, Behavior is calm, cooperative, rb1 Denies fever. Pain: Denies pain. Neuro: Level of Consciousness is awake, alert, obeys commands, Oriented to person, place, time, situation. Cardiovascular: Capillary refill < 3 seconds. Respiratory: Airway is patent Respiratory effort is even, unlabored, Respiratory pattern is regular, symmetrical, Denies cough, shortness of breath. GI: No signs and/or symptoms were reported involving the gastrointestinal system. : No signs and/or symptoms were reported regarding the genitourinary system. Derm: Skin is dry, Skin is normal, Skin temperature is warm. Musculoskeletal: Swelling present in bilateral jaws, cheeks, and lips. 15:14 Musculoskeletal: No swelling noted in the tongue. rb1 16:10 Reassessment: Patient appears in no apparent distress at this time. No changes from rb1 previously documented assessment. 17:10 Reassessment: Patient appears in no apparent distress at this time. Patient and/or rb1 family updated on plan of care and expected duration. Pain level reassessed. 18:00 Reassessment: Patient appears in no apparent distress at this time. Patient states rb1 feeling better. Vital Signs: 14:47 BP 129 / 97; Pulse 78; Resp 16; Temp 98.6; Pulse Ox 98% on R/A; Weight 63.5 kg; Pain iw 0/10; 16:00 BP 128 / 95; Pulse 75; Resp 17; Pulse Ox 99% on R/A; rb1 17:00 BP 127 / 90; Pulse 69; Resp 16; Pulse Ox 100% ; rb1 18:00 BP 125 / 88; Pulse 71; Resp 18; Pulse Ox 98% on R/A; rb1 ED Course: 14:37 Patient arrived in ED. mr 14:51 Triage completed. iw 14:53 Arm band placed on. iw 15:05 Eb Arita, FREDIS is PHCP. pm1 15:05 Chidi Childers MD is Attending Physician. pm1 15:14 Patient has correct armband on for positive identification. Bed in low position. Call rb1 light in reach. Side rails up X 1. Pulse ox on. NIBP on. 15:48 Cassie Guillen, RN is Primary Nurse. rb1 16:15 Inserted saline lock: 22 gauge in left antecubital area, using aseptic technique. rb1 16:47 Missed attempt(s): 20 gauge in right antecubital area. dh4 18:00 IV discontinued, intact, bleeding controlled, No redness/swelling at site. Pressure rb1 dressing applied. 18:04 No provider procedures requiring assistance completed. rb1 Administered Medications: 16:20 Drug: Decadron - Dexamethasone 10 mg Route: IVP; Site: left antecubital; rb1 16:35 Follow up: Response: No adverse reaction rb1 16:20 Drug: Pepcid 20 mg Route: IVP; Site: left antecubital; rb1 16:35 Follow up: Response: No adverse reaction rb1 16:20 Drug: Benadryl 25 mg Route: IVP; Site: left antecubital; rb1 16:35 Follow up: Response: No adverse reaction rb1 Outcome: 17:24 Discharge ordered by MD. pm1 18:04 Discharged to home via wheelchair, with family. rb1 18:04 Condition: stable 18:04 Discharge instructions given to patient, Instructed on discharge instructions, follow up and referral plans. medication usage, Demonstrated understanding of instructions, follow-up care, medications, Prescriptions given X 3. 18:07 Patient left the ED. rb1 Signatures: Isidro Xiao ChakrabortyDenice RN RN iw Cassie Guillen, RN RN rb1 Eb Arita, FREDIS BOOT AND SADDLE REPAIR PERSON pm1 Luis Bhatt RN RN Ariel Soto 4
--- NOTE | 2020-02-09 13:33 | EDPHYS ---
Physician Documentation [facility] Name: José Miller Age: 54 yrs Sex: Male : 1965 Arrival Date: 02/03/2020 Time: 14:37 Bed 17 Private MD: ED Physician Chidi Childers HPI: 02/02 15:13 This 54 yrs old Black Male presents to ER via Ambulatory with complaints of Facial pm1 Swelling. 15:13 Onset: The symptoms/episode began/occurred today. Associated signs and symptoms: pm1 Pertinent negatives: abdominal pain, chest pain, fever, shortness of breath, sore throat, vomiting, wheezing. Modifying factors: The patient symptoms are alleviated by nothing, the patient symptoms are aggravated by nothing. The patient has not experienced similar symptoms in the past. Patient started on lisinopril 1 month ago. Patient presents to the ER with complaints of swelling to jaw on the right and left side, left greater than right. No tongue swelling. No chest pain or SOB. No sore throat. Historical: - Allergies: 14:52 No Known Allergies; iw - Home Meds: 14:52 amlodipine 10 mg tab 1 tab once daily [Active]; hydralazine 50 mg Oral tab three times iw a day [Active]; lisinopril 40 mg Oral tab 1 tab once daily [Active]; - PMHx: 14:52 Hypertension; CVA; iw - PSHx: 14:52 None; iw - Immunization history:: Adult Immunizations not up to date. - Social history:: Smoking status: Patient/guardian denies using tobacco, Stopped _ months ago 1. ROS: 15:13 Constitutional: Negative for fever, chills, and weight loss, Eyes: Negative for injury, pm1 pain, redness, and discharge, ENT: Negative for injury, pain, and discharge, Neck: Negative for injury, pain, and swelling, Cardiovascular: Negative for chest pain, palpitations, and edema, Respiratory: Negative for shortness of breath, cough, wheezing, and pleuritic chest pain, Abdomen/GI: Negative for abdominal pain, nausea, vomiting, diarrhea, and constipation, Back: Negative for injury and pain, MS/Extremity: Negative for injury and deformity, Neuro: Negative for headache, weakness, numbness, tingling, and seizure. 15:13 Skin: Positive for swelling, of the right jaw and left jaw. Exam: 15:13 Constitutional: This is a well developed, well nourished patient who is awake, alert, pm1 and in no acute distress. Head/Face: Normocephalic, atraumatic. Eyes: Pupils equal round and reactive to light, extra-ocular motions intact. Lids and lashes normal. Conjunctiva and sclera are non-icteric and not injected. Cornea within normal limits. Periorbital areas with no swelling, redness, or edema. ENT: Nares patent. No nasal discharge, no septal abnormalities noted. Tympanic membranes are normal and external auditory canals are clear. Oropharynx with no redness, swelling, or masses, exudates, or evidence of obstruction, uvula midline. Mucous membranes moist. Neck: Trachea midline, no thyromegaly or masses palpated, and no cervical lymphadenopathy. Supple, full range of motion without nuchal rigidity, or vertebral point tenderness. No Meningismus. Chest/axilla: Normal chest wall appearance and motion. Nontender with no deformity. No lesions are appreciated. 15:13 Respiratory: Lungs have equal breath sounds bilaterally, clear to auscultation and percussion. No rales, rhonchi or wheezes noted. No increased work of breathing, no retractions or nasal flaring. Back: No spinal tenderness. No costovertebral tenderness. Full range of motion. Skin: Warm, dry with normal turgor. Normal color with no rashes, no lesions, and no evidence of cellulitis. Patient with mild swelling to right and left jaw. No swelling to lips, nose, tongue MS/ Extremity: Pulses equal, no cyanosis. Neurovascular intact. Full, normal range of motion. 15:13 Cardiovascular: Rate: normal, Rhythm: regular, Pulses: no pulse deficits are appreciated, Edema: is not appreciated. 15:13 Neuro: Exam negative for acute changes, Orientation: is normal, Mentation: is normal. Vital Signs: 14:47 BP 129 / 97; Pulse 78; Resp 16; Temp 98.6; Pulse Ox 98% on R/A; Weight 63.5 kg; Pain iw 0/10; 16:00 BP 128 / 95; Pulse 75; Resp 17; Pulse Ox 99% on R/A; rb1 17:00 BP 127 / 90; Pulse 69; Resp 16; Pulse Ox 100% ; rb1 18:00 BP 125 / 88; Pulse 71; Resp 18; Pulse Ox 98% on R/A; rb1 MDM: 15:06 Patient medically screened. pm1 17:22 Data reviewed: vital signs. Data interpreted: Pulse oximetry: on room air is 98 %. pm1 Interpretation: normal. Counseling: I had a detailed discussion with the patient and/or guardian regarding: the historical points, exam findings, and any diagnostic results supporting the discharge/admit diagnosis, the need for outpatient follow up, to return to the emergency department if symptoms worsen or persist or if there are any questions or concerns that arise at home, stop lisinopril. 02/02 15:13 Order name: IV Saline Lock; Complete Time: 16:36 pm1 Administered Medications: 16:20 Drug: Decadron - Dexamethasone 10 mg Route: IVP; Site: left antecubital; rb1 16:35 Follow up: Response: No adverse reaction rb1 16:20 Drug: Pepcid 20 mg Route: IVP; Site: left antecubital; rb1 16:35 Follow up: Response: No adverse reaction rb1 16:20 Drug: Benadryl 25 mg Route: IVP; Site: left antecubital; rb1 16:35 Follow up: Response: No adverse reaction rb1 Disposition: 18:21 Co-signature as Attending Physician, Chidi Childers MD. rn Disposition: 02/03/20 17:24 Discharged to Home. Impression: Angioneurotic edema. - Condition is Stable. - Discharge Instructions: Angioedema. - Prescriptions for Benadryl 25 mg Oral Capsule - take 1 capsule by ORAL route every 6 hours As needed; 30 tablet. Pepcid 20 mg Oral Tablet - take 1 tablet by ORAL route every 12 hours for 10 days; 20 tablet. Prednisone 20 mg Oral Tablet - take 3 tablet by ORAL route once daily for 5 days; 15 tablet. - Medication Reconciliation Form, Thank You Letter, Antibiotic Education, Prescription Opioid Use form. - Follow up: Emergency Department; When: As needed; Reason: Worsening of condition. Follow up: Private Physician; When: 2 - 3 days; Reason: Recheck today's complaints, Continuance of care, Re-evaluation by your physician. - Problem is new. - Symptoms have improved. Signatures: Denice Chakraborty RN RN iw Nieto, Roman, MD MD rn Barber, Rebecca, RN RN rb1 Eb Arita NP CERTIFIED WELLNESS PROGRAM COORDINATOR pm1 Corrections: (The following items were deleted from the chart) 18:07 17:24 02/03/2020 17:24 Discharged to Home. Impression: Angioneurotic edema. Condition rb1 is Stable. Forms are Medication Reconciliation Form, Thank You Letter, Antibiotic Education, Prescription Opioid Use. Follow up: Emergency Department; When: As needed; Reason: Worsening of condition. Follow up: Private Physician; When: 2 - 3 days; Reason: Recheck today's complaints, Continuance of care, Re-evaluation by your physician. Problem is new. Symptoms have improved. pm1
== END 2020-02-03 18:07 | disposition home or self-care (01) ==
LOC: ER 14:35
DX: T78.3XXA Angioneurotic edema, initial encounter (principal); I10 Essential (primary) hypertension; Z86.73 Personal history of transient ischemic attack (TIA), and cerebral infarction without residual deficits
CPT/HCPCS: 96374; 96375; 99284; J1100; J1200

== ENCOUNTER 2024-11-18 15:15 | Inpatient (IN) | payer OTHER ==
--- NOTE | 2024-11-18 16:06 | RAD REPORT ---
EXAM: CT brain without contrast HISTORY: Pain;Trauma COMPARISON: 01/03/2020 TECHNIQUE: Multiple contiguous axial images were obtained and a CT of the brain without contrast. Sag ittal and coronal reformats were performed. One or more of the following dose reduction techniques were used: Automated exposure control, adjust ment of the mA and/or kV according to patient size, and/or iterative reconstruction. FINDINGS: No evidence of hydrocephalus, intracranial hemorrhage, or extra-axial fluid collection. Areas of gliosis seen left cerebral hemisphere with volume loss. No evidence of midline shift or are as of brain edema. The calvarium is intact. The visualized paranasal sinuses and mastoid air cells are essentially clear . IMPRESSION: No evidence of acute intracranial abnormality. EXAM: CT of the cervical spine without contrast HISTORY: Neck pain, injury Pain;Trauma TECHNIQUE: Multiple contiguous axial images were obtained in a CT of the cervical spine without contr ast. Sagittal and coronal reformats were performed. FINDINGS: The vertebral bodies demonstrate normal height and alignment. No evidence of acute fracture or subluxation.. Moderate mid cervical degenerative change with disc thinning and posterior osteophyte. No prevertebral soft tissue swelling is seen. The posterior facets are well aligned. Normal alignment of the skull base with the cervical spine is seen. Emphysematous lung apices. IMPRESSION: No evidence of acute osseous abnormality of the cervical spine.
--- NOTE | 2024-11-18 16:38 | RAD REPORT ---
EXAMINATION: MRI BRAIN WITHOUT CONTRAST CLINICAL INDICATION: Dizziness;Confused TECHNIQUE: Multiplanar multisequence MR images of the brain were obtained without intravenous contras t. Unless otherwise specified, incidental findings do not require dedicated imaging follow-up. COMPARISON: Same day CT head FINDINGS: INTRACRANIAL: 22 mm area of acute CVA noted posterior right centrum semiovale white matter. No hemorr elizabeth seen. Mild to moderate brain atrophy with chronic microvascular ischemic changes. Chronic changes also present in the sonny. VASCULATURE: Normal signal voids in the larger intracranial arteries and dural venous sinuses. SINUSES: The paranasal sinuses and mastoid air cells are predominantly clear. BONE: The marrow signal pattern is within normal limits. IMPRESSION: Study is limited by significant patient motion. There is likely 22 mm area of acute CVA posterior rig ht centrum semiovale white matter. No hemorrhage seen.
[2024-11-18 17:01] LABS: Absolute Basophils 0.1 K/uL (0-0.5); Absolute Lymphocytes (CBC) 1.9 K/uL (0.7-4.9); Absolute Monocytes 0.7 K/uL (0.1-1.3); Absolute Neutrophil 5.2 K/uL (1.8-8.0); Basophils % 1.2 % (0-1.3); Eosinophils % 0.3 % (0-4.4); Hematocrit 36.6 % (39.6-49.0); Hemoglobin 12.5 g/dL (13.6-17.9); Lymphocytes % 23.6 % (15.3-44.8); MCH 32.4 pg (27.0-35.0); MCHC 34.2 g/dL (32.0-36.0); MCV 94.7 fL (80-100); MPV 7.8 fL (7.6-11.3); Monocytes % 9.4 % (3.3-12.3); Neutrophils % 65.5 % (41.7-73.7); Nucleated Red Blood Cells % 0.1 % (0-0); Platelets 266 thou/uL (152-406); RBC Red Blood Cell Count 3.87 M/uL (4.33-5.43); Red Cell Distribution Width 15.1 % (12.1-15.2)
[2024-11-18 17:04] LABS: PT Prothrombin Time 12.1 SECONDS (10-13.0); Protime INR 1.06
[2024-11-18 17:15] LABS: ALT/SGPT 30 U/L (16-61); AST/SGOT 32 U/L (15-37); Albumin 2.9 g/dL (3.4-5.0); Albumin/Globulin Ratio 0.7 (1.1-1.8); Alkaline Phosphatase 87 U/L (45-117); Anion Gap 8.6 mEq/L (5.0-15.0); BUN Blood Urea Nitrogen 9 mg/dL (7-18); Bicarbonate 26 mEq/L (21-32); Bilirubin Total 0.4 mg/dL (0.2-1.0); Globulin 4.1 g/dL (2.3-3.5); Glomerular Filtration Rate 99 ml/min (=/>90); Glucose Level 77 mg/dL (74-106); Magnesium 1.8 mg/dL (1.6-2.4); Potassium 3.6 mEq/L (3.5-5.1); Sodium Level 139 mEq/L (136-145)
[2024-11-18 17:16] LABS: Bilirubin Direct < 0.2 mg/dL (0-0.2); Bilirubin Indirect, Calculated 0.2 mg/dL (0.2-0.8)
[2024-11-18 17:20] LABS: Troponin High Sensitivity 189.9 pg/mL (<58.9)
--- NOTE | 2024-11-18 17:31 | RAD REPORT ---
EXAMINATION: ONE VIEW CHEST XR CLINICAL INDICATION: near syncope TECHNIQUE: Frontal chest projection is submitted. Examination is limited by patient positioning and t echnique. COMPARISON: 12/10/2022 FINDINGS: The lungs are well inflated and clear. The heart is mildly enlarged in size. No displaced fractures i dentified. Mild lower thoracic levoscoliosis. IMPRESSION: No acute intrathoracic abnormalities.
--- NOTE | 2024-11-18 19:44 | ER ---
Nurse's Notes [facility] Name: José Miller Age: 59 yrs Sex: Male : 1965 Arrival Date: 11/18/2024 Time: 15:15 Bed 18 Private MD: Diagnosis: Acute CVA;Elevated troponin Presentation: 11/18 15:42 Chief complaint: EMS states: Called for generalized weakness and fall. cm10 15:42 Method Of Arrival: EMS: [facility] cm10 16:50 Coronavirus screen: Client denies travel out of the [place] in the last 14 days. Ebola cm10 Screen: Patient denies travel to an Ebola-affected area in the 21 days before illness onset. Initial Sepsis Screen: Does the patient meet any 2 criteria? No. Patient's initial sepsis screen is negative. Does the patient have a suspected source of infection? No. Patient's initial sepsis screen is negative. Risk Assessment: Do you want to hurt yourself or someone else? Patient reports no desire to harm self or others. Onset of symptoms was November 18, 2024. 16:50 Acuity: CHAMP 2 cm10 Triage Assessment: 16:45 General: Appears in no apparent distress. uncomfortable, Behavior is cooperative. Pain: cm10 Denies pain. Neuro: No deficits noted. Level of Consciousness is awake, confused, Oriented to person, place, situation. Neuro: Gait is steady. Respiratory: No deficits noted. Airway is patent Respiratory effort is even, unlabored, Respiratory pattern is regular, symmetrical. Derm: Skin is pink, warm \T\ dry. Historical: - Allergies: 15:42 No Known Allergies; cm10 - Home Meds: 23:37 carvedilol oral [Active]; hydralazine 50 mg Oral tab three times a day [Active]; aa10 Hydralazine Oral [Active]; - PMHx: 15:42 CVA; Hypertension; Myocardial infarction; cm10 - Immunization history:: Adult Immunizations unknown. - Infectious Disease History:: Denies. - Social history:: Smoking status: Patient reports the use of cigarette tobacco products, smokes one-half pack cigarettes per day. Screenin:10 [facility] ED Fall Risk Assessment (Adult) History of falling in the last 3 months, cm10 including since admission Yes- single mechanical fall (1 pt) Confusion or Disorientation Yes (5 pts) Intoxicated or Sedated No (0 pts) Impaired Gait No (0 pts) Mobility Assist Device Used No (0 pt) Altered Elimination No (0 pt) Score/Fall Risk Level 3 or more points = High Risk Oriented to surroundings, Maintained a safe environment, Hourly rounding (assess needs \T\ fall precautionary measures) done. Abuse screen: Denies threats or abuse. Denies injuries from another. Nutritional screening: No deficits noted. Tuberculosis screening: No symptoms or risk factors identified. 20:07 Thicket Swallow Protocol Exclusion Criteria: Unable to remain alert for testing: No NPO cm10 for medical/surgical reason by provider order No Tracheostomy tube present No No thin liquids due to preexisting dysphagia/baseline modified diet thickened liquids No Exclusion Criteria Result: Proceed Brief Cognitive Screen What is your name? Normal, Where are you right now? Normal, What year is it? Normal. Oral Mechanism Examination Facial Symmetry: Normal, Motion: Normal, Lip Closure: Normal, Oral Mechanism Result: Normal. 3 oz Water Swallow Challenge: Pt able to drink all water without stopping, coughing, choking or throat clearing: Yes Result: PASS. Assessment: 20:00 Reassessment: Patient appears in no apparent distress at this time. Patient and/or cm10 family updated on plan of care and expected duration. Pain level reassessed. Patient is alert, oriented x 3, equal unlabored respirations, skin warm/dry/pink. 21:50 Reassessment: Patient appears in no apparent distress at this time. Patient and/or cm10 family updated on plan of care and expected duration. Pain level reassessed. Patient is alert, oriented x 3, equal unlabored respirations, skin warm/dry/pink. Vital Signs: 16:50 BP 162 / 90; Pulse 86; Resp 15; Temp 98.6; Pulse Ox 100% ; Weight 68.04 kg; Height 5 cm10 ft. 5 in. ; Pain 0/10; 17:30 BP 161 / 94; cm10 18:30 BP 145 / 90; Pulse 74; Resp 15; Pulse Ox 100% ; cm10 19:00 BP 143 / 92; Pulse 72; Resp 15; Pulse Ox 100% ; cm10 19:30 BP 145 / 76; Pulse 70; Resp 15; Pulse Ox 100% ; cm10 20:00 BP 148 / 88; Pulse 60; Resp 15; Pulse Ox 97% ; cm10 20:30 BP 142 / 81; Pulse 64; Resp 15; Pulse Ox 100% ; cm10 21:00 BP 138 / 84; Pulse 68; Resp 15; Pulse Ox 99% ; cm10 21:48 BP 162 / 84; Pulse 83; Resp 17; Temp 97.9(O); Pulse Ox 98% on R/A; cm10 23:00 BP 150 / 80; Pulse 80; Resp 20; Temp 98.6; Pulse Ox 99% ; aa10 16:50 Body Mass Index 24.96 (68.04 kg, 165.1 cm) cm10 16:50 Pain Scale: Adult cm10 NIH Stroke Scale Scores: 20:08 NIHSS Score: 0 cm10 ED Course: 15:21 Patient arrived in ED. kb 15:21 [facility]C [facility] kb 15:21 Chidi Childers MD is Attending Physician. kb 15:41 Katy Hernandez, JOSUÉ is Primary Nurse. cm10 15:44 Arm band placed on right wrist. Patient placed in an exam room, on a stretcher. cm10 15:[address] via stretcher. Patient moved to MRI via stretcher. cm10 15:53 CT Head C Spine In Process Unspecified. EDMS 16:32 MRI - Brain Wo Cont In Process Unspecified. EDMS 16:50 Triage completed. cm10 16:50 Initial lab(s) drawn, by sd, sent to lab. EKG done, by ED staff, reviewed by Valentina COLBERT. Inserted saline lock: 20 gauge in left forearm, using aseptic technique. Blood collected. Flushed with 10 mL NS. 16:51 Patient has correct armband on for positive identification. Bed in low position. Call cm10 light in reach. Side rails up X2. Provided Education on: ER process and procedures.. Client placed on continuous cardiac and pulse oximetry monitoring. NIBP monitoring applied. monitoring and evaluation advisor on. 17:23 Chest Single View XRAY In Process Unspecified. EDMS 18:05 initiated transfer to [facility]. bd 18:09 pt denied due to no beds at this time per Priya. bd 18:12 initiated transfer to [facility]. bd 19:43 Antony Clayton MD is Hospitalizing Provider. kb 23:37 No provider procedures requiring assistance completed. aa10 23:38 intact. aa10 Administered Medications: 20:23 Drug: Aspirin PO Chewable Tablet 324 mg PO once; 81 mg tablets x 4 Route: PO; 10 21:20 Follow up: Response: No adverse reaction cm10 Medication: 17:10 VIS not applicable for this client. cm10 Outcome: 19:43 Decision to Hospitalize by Provider. kb 23:38 Admitted to Med/surg accompanied by tech, via wheelchair, room 220, aa10 23:38 Condition: good 23:38 Instructed on the need for admit, Demonstrated understanding of instructions, 23:41 Patient left the ED. aa10 NIH Stroke Scale - NIH Stroke Score Date: 11/18/2024 Time: 20:08 Total Score = 0 10. Dysarthria (speech clarity - read or repeat words) - 0(Normal) 11. Extinction and Inattention (visual/tactile/auditory/spatial/personal) - 0(No abnormality) 1a. Level of Consciousness (LOC) - 0(Alert) 1b. Level of Consciousness (LOC) (Month \T\ Age) - 0(Both) 1c. LOC Commands (Open \T\ Closes Eyes/Glost Placer) - 0(Both) 2. Best Gaze (Lateral Gaze Paresis) - 0(Normal) 3. Visual Field Loss - 0(No visual loss) 4. Facial Palsy - 0(Normal) 5a. Left Arm: Motor (10-second hold) - 0(No drift) 5b. Right Arm: Motor (10-second hold) - 0(No drift) 6a. Left Leg: Motor (5-second hold - always test supine) - 0(No drift) 6b. Right Leg: Motor (5-second hold - always test supine) - 0(No drift) 7. Limb Ataxia (finger/nose \T\ heel/bell - test with eyes open) - 0(Absent) 8. Sensory Loss (pinprick arms/legs/face) - 0(Normal) 9. Best Language: Aphasia (description/naming/reading) - 0(No aphasia) Initials: cm10 Signatures: Dispatcher [employer] Valentina Her, KARENC FEATHER CUTTING MACHINE FEEDER-Bianca Melo Clarissa, RN RN 10 Sergey Petty RN RN aa10
--- NOTE | 2024-11-18 19:44 | EDPHYS ---
Physician Documentation [facility] Name: José Miller Age: 59 yrs Sex: Male : 1965 Arrival Date: 11/18/2024 Time: 15:15 Bed 18 Private MD: ED Physician Chidi Childers HPI: 11/18 15:28 This 59 yrs old Black Male presents to ER via Unassigned with complaints of fall. kb 15:28 Pt is a 59 year old male who presents after fall. EMS states pt got up from bed and kb fell while walking. Family heard pt fall and went to check on him, he was crawling to the front room when they got to him. Pt does not know why or how he fell. States he could have been dizzy, but isn't sure. Denies any pain. Pt did have an episode of incontinence. Family states pt has right sided deficits from previous stroke but his gait was more unsteady than normal. . Historical: - Allergies: 15:42 No Known Allergies; cm10 - Home Meds: 23:37 carvedilol oral [Active]; hydralazine 50 mg Oral tab three times a day [Active]; aa10 Hydralazine Oral [Active]; - PMHx: 15:42 CVA; Hypertension; Myocardial infarction; cm10 - Immunization history:: Adult Immunizations unknown. - Infectious Disease History:: Denies. - Social history:: Smoking status: Patient reports the use of cigarette tobacco products, smokes one-half pack cigarettes per day. ROS: 15:26 Constitutional: As per HPI kb Exam: 16:58 Constitutional: This is a well developed, well nourished patient who is awake, alert, kb and in no acute distress. Head/Face: Normocephalic, atraumatic. ENT: Moist Mucous membranes Cardiovascular: Regular rate Respiratory: Respirations even and unlabored. No increased work of breathing. Talking in full sentences Abdomen/GI: Soft, non-tender. No distention Skin: Warm, dry with normal turgor. Normal color. MS/ Extremity: Pulses equal, no cyanosis. Neurovascular intact. Full, normal range of motion. Neuro: Awake and alert, GCS 15, oriented to person, place, time, and situation. Vital Signs: 16:50 BP 162 / 90; Pulse 86; Resp 15; Temp 98.6; Pulse Ox 100% ; Weight 68.04 kg; Height 5 cm10 ft. 5 in. ; Pain 0/10; 17:30 BP 161 / 94; cm10 18:30 BP 145 / 90; Pulse 74; Resp 15; Pulse Ox 100% ; cm10 19:00 BP 143 / 92; Pulse 72; Resp 15; Pulse Ox 100% ; cm10 19:30 BP 145 / 76; Pulse 70; Resp 15; Pulse Ox 100% ; cm10 20:00 BP 148 / 88; Pulse 60; Resp 15; Pulse Ox 97% ; cm10 20:30 BP 142 / 81; Pulse 64; Resp 15; Pulse Ox 100% ; cm10 21:00 BP 138 / 84; Pulse 68; Resp 15; Pulse Ox 99% ; cm10 21:48 BP 162 / 84; Pulse 83; Resp 17; Temp 97.9(O); Pulse Ox 98% on R/A; cm10 23:00 BP 150 / 80; Pulse 80; Resp 20; Temp 98.6; Pulse Ox 99% ; aa10 16:50 Body Mass Index 24.96 (68.04 kg, 165.1 cm) cm10 16:50 Pain Scale: Adult cm10 NIH Stroke Scale Scores: 20:08 NIHSS Score: 0 cm10 MDM: 15:21 Medical Screening Exam initiated kb 15:30 Data reviewed: vital signs, nurses notes. Historians other than the Patient: EMS: [facility]. 16:56 ED course: Family at bedside now. Family states last known normal for patient was last kb night. States pt hadn't come out of his room all day, then they heard him fall so they went in to check on him. Pt states he fell while trying to walk to the restroom. Family reports pt's speech is normal for him since his previous stroke. . 17:05 ED course: Home meds: Hydralazine, vitamin D, amlodipine, carvedilol. kb 17:44 Differential diagnosis: cva, mi, tia, dehydration, abnormal electrolytes. Consideration kb of Admission/Observation Patient was admitted/placed on observation. Escalation of care including admission/observation considered. 19:14 Management of patient was discussed with the following: Special Needs Caregiver: Dr Martinez accepts pt for consult. Wants ASA 81mg, a statin and folic acid started. Counseling: I had a detailed discussion with the patient and/or guardian regarding the historical points, exam findings, and any diagnostic results supporting the discharge/admit diagnosis, lab results, radiology results, the need for further work-up and treatment in the hospital. 19:15 Management of patient was discussed with the following: Special Needs Caregiver: Dr Dueñas accepts angel pt for consult. ED course: Pt's family member requests transfer to [facility]. [facility] contacted and declined transfer due to capacity. Awaiting callback from [facility]. . 19:40 ED course: Family called to check on status of transfer. Educated on denied transfer by angel [facility] and that we were still awaiting [facility]. Family ok with pt being admitted here. . 19:43 Management of patient was discussed with the following: Hospitalist: Dr Clayton accepts angel pt for admission. Wants CTA head and neck done. 11/18 15:22 Order name: Basic Metabolic Panel; Complete Time: 17:31 kb 11/18 15:22 Order name: CBC with Diff; Complete Time: 17:05 kb 11/18 15:22 Order name: Hepatic Function; Complete Time: 17:31 kb 11/18 15:22 Order name: Magnesium; Complete Time: 17:31 kb 11/18 15:22 Order name: Protime (+inr); Complete Time: 17:05 kb 11/18 15:22 Order name: Ptt, Activated; Complete Time: 17:05 kb 11/18 15:22 Order name: Troponin High Sensitivity; Complete Time: 17:31 kb 11/18 15:22 Order name: Urinalysis w/ reflexes kb 11/18 20:46 Order name: CBC with Automated Diff [facility] 11/18 20:46 Order name: CBC with Automated Diff [facility] 11/18 20:46 Order name: Comprehensive Metabolic Panel [facility] 11/18 20:46 Order name: Comprehensive Metabolic Panel [facility] 11/18 20:46 Order name: Lipid Profile [facility] 11/18 20:46 Order name: Lipid Profile [facility] 11/18 20:46 Order name: Troponin High Sensitivity [facility] 11/18 20:46 Order name: Troponin High Sensitivity [facility] 11/18 15:22 Order name: CT Head C Spine; Complete Time: 16:07 kb 11/18 15:22 Order name: Chest Single View XRAY; Complete Time: 17:32 kb 11/18 15:22 Order name: MRI - Brain Wo Cont; Complete Time: 16:44 kb 11/18 19:47 Order name: CT Head Angio 11/18 20:46 Order name: Echo with Doppler [facility] 11/18 21:48 Order name: CT; Complete Time: 22:11 [facility] 11/18 21:52 Order name: CT; Complete Time: 22:11 [facility] 11/18 20:46 Order name: CONS Physician Consult [facility] 11/18 20:46 Order name: IRF Screen [facility] 11/18 20:46 Order name: Physical Therapy Consult [facility] 11/18 20:46 Order name: Speech Therapy Consult [facility] 11/18 15:22 Order name: Cardiac monitoring; Complete Time: 16:51 kb 11/18 15:22 Order name: EKG - Nurse/Tech; Complete Time: 16:51 kb 11/18 15:22 Order name: IV Saline Lock; Complete Time: 16:51 kb 11/18 15:22 Order name: Labs collected and sent; Complete Time: 16:51 kb 11/18 15:22 Order name: NPO; Complete Time: 16:51 kb 11/18 15:22 Order name: O2 Per Protocol; Complete Time: 16:51 kb 11/18 15:22 Order name: O2 Sat Monitoring; Complete Time: 16:51 kb Administered Medications: 20:23 Drug: Aspirin PO Chewable Tablet 324 mg PO once; 81 mg tablets x 4 Route: PO; cm10 21:20 Follow up: Response: No adverse reaction cm10 Disposition: 11/19 07:21 Co-signature as Attending Physician, Chidi Childers MD I reviewed the patient's care rn provided by the Advanced Practice Provider and agree with the diagnosis and treatment plan. Disposition Summary: 11/18/24 19:43 Hospitalization Ordered Notes: Hospitalization Status: Inpatient Admission kb Provider: Antony Clayton Location: Telemetry/MedSurg (Inpatient) kb Condition: Stable kb Problem: new kb Symptoms: are unchanged kb Bed/Room Type: Standard Room Assignment: 220(11/18/24 21:00) rv1 Diagnosis - Acute CVA kb - Elevated troponin kb Forms: - Medication Reconciliation Form kb - SBAR form kb - Leadership Thank You Letter kb Critical care time excluding procedures: 11/18 23:42 Critical care time: Bedside Care: 10 minutes, Consultation: 10 minutes, Family kb Intervention: 10 minutes. Total time: 30 minutes NIH Stroke Scale - NIH Stroke Score Date: 11/18/2024 Time: 20:08 Total Score = 0 10. Dysarthria (speech clarity - read or repeat words) - 0(Normal) 11. Extinction and Inattention (visual/tactile/auditory/spatial/personal) - 0(No abnormality) 1a. Level of Consciousness (LOC) - 0(Alert) 1b. Level of Consciousness (LOC) (Month \T\ Age) - 0(Both) 1c. LOC Commands (Open \T\ Closes Eyes/Help Desk Representative) - 0(Both) 2. Best Gaze (Lateral Gaze Paresis) - 0(Normal) 3. Visual Field Loss - 0(No visual loss) 4. Facial Palsy - 0(Normal) 5a. Left Arm: Motor (10-second hold) - 0(No drift) 5b. Right Arm: Motor (10-second hold) - 0(No drift) 6a. Left Leg: Motor (5-second hold - always test supine) - 0(No drift) 6b. Right Leg: Motor (5-second hold - always test supine) - 0(No drift) 7. Limb Ataxia (finger/nose \T\ heel/bell - test with eyes open) - 0(Absent) 8. Sensory Loss (pinprick arms/legs/face) - 0(Normal) 9. Best Language: Aphasia (description/naming/reading) - 0(No aphasia) Initials: cm10 Signatures: Dispatcher [employer] EDMS Valentina Louis, [employer]-C [employer]-Ckb Chidi Childers MD MD rn Villegas, Rebecca rv1 Katy Hernandez, RN RN cm10 Sergey Petty, RN RN aa10 Corrections: (The following items were deleted from the chart) 15:23 15:23 BASIC METABOLIC PANEL+C.LAB.BRZ ordered. EDMS EDMS 15:23 15:23 CBC+H.LAB.BRZ ordered. EDMS EDMS 15:23 15:23 HEPATIC FUNCTION+C.LAB.BRZ ordered. EDMS EDMS 15:23 15:23 MAGNESIUM+C.LAB.BRZ ordered. EDMS EDMS 15:23 15:23 PROTIME (+INR)+COAG.LAB.BRZ ordered. EDMS EDMS 15:23 15:23 PTT, ACTIVATED+COAG.LAB.BRZ ordered. EDMS EDMS 15: 15:23 Troponin High Sensitivity+C.LAB.BRZ ordered. EDMS EDMS 15:23 15:23 Urinalysis+U.LAB.BRZ ordered. EDMS EDMS 15:23 15:23 Head C Spine MPR Wo Con+CT.RAD.BRZ ordered. EDMS EDMS 15:23 15:23 Chest Single View+RAD.RAD.BRZ ordered. EDMS EDMS 15:23 15:23 Brain Wo Cont+MRI.RAD.BRZ ordered. EDMS EDMS 19:46 19:43 Management of patient was discussed with the following: Hospitalist: Dr angel Clayton accepts pt for admission. kb 19:48 19:48 Neck Angio+CT.RAD.BRZ ordered. EDMS EDMS 21:00 19:43 kb rv1
--- NOTE | 2024-11-18 19:51 | P.HP ---
Certification for Inpatient Patient admitted to: Inpatient With expected LOS: >2 Midnights Practitioner: I am a practitioner with admitting privileges, knowledge of patient current condition, hospital course, and medical plan of care. Services: Services provided to patient in accordance with Admission requirements found in Title 42 Section 412.3 of the Code of Federal Regulations Patient History Date of Service: 11/18/24 Reason for admission: Fall History of Present Illness: 59 yrs old Male with past medical history of hypertension, hyperlipidemia, his tory of CAD, history of stroke with residual deficits, history of smoking who was brought to ER with history of fall. Patient states that trying to ambulate he was from bed. And fell down while he was walking. Family heard pt fall and went to check on him, he was crawling to the front room when they got to him. Pt does not know why or how he fell. States he could have been dizzy, but isn't sure. Denies any pain. Pt did have an episode of incontinence. Family states pt has deficits from previous stroke but his gait was more unsteady than normal. Last seen normal was last night. Patient was assessed in the ER and an MRI was positive for acute stroke and was admitted for further management. He was also found to have elevated troponin Allergies NKDA Allergy (Uncoded 10/11/15 23:00) Unknown No Known Allergies Allergy (Uncoded 11/26/15 21:12) Unknown Home medications list reviewed: Yes Home Medications: Amlodipine [Norvasc*] 10 mg PO DAILY #30 tab 12/12/22 Aspirin [Aspirin EC] 81 mg PO DAILY #30 tab 12/12/22 Atorvastatin Calcium [Lipitor] 40 mg PO BEDTIME #30 tab 12/12/22 carvediloL [Coreg] 12.5 mg PO BID #60 tab 12/12/22 - Past Medical/Surgical History Diabetic: No Past Medical History: Reviewed- Non-Contributory -: CAD -: CVA with resulting left-sided weakness -: Hypertension Past Surgical History: Reviewed- Non-Contributory -: None Psychosocial/ Personal History: Patient lives at home with his family - Family History Father -: Heart disease, Hypertension Mother -: Heart disease, Hypertension - Social History Smoking Status: Current some day smoker Alcohol use: No CD- Drugs: Yes Caffeine use: No Review of Systems 10-point ROS is otherwise unremarkable Physical Examination - Vital Signs Temperature: 97.8 F Blood Pressure: 128/72 Pulse: 78 Respirations: 18 Pulse Ox (%): 94 - Physical Exam General: Alert, Oriented x3, Mild distress HEENT: Atraumatic, Normocephalic Neck: Supple Respiratory: Clear to auscultation bilaterally, Normal air movement Cardiovascular: Regular rate/rhythm, Normal S1 S2 Capillary refill: <2 Seconds Gastrointestinal: Soft and benign, W/out hepatosplenomegaly Musculoskeletal: No clubbing, No swelling Integumentary: No rashes, No breakdown Neurological: Normal speech, Abnormal gait, Abnormal strength Lymphatics: No axilla or inguinal lymphadenopathy - Studies Laboratory Data (last 24 hrs) 11/18/24 11/18/24 11/18/24 16:48 16:48 16:48 WBC 7.90 Hgb 12.5 L Hct 36.6 L Plt Count 266 PT 12.1 INR 1.06 APTT 36.0 Sodium 139 Potassium 3.6 BUN 9 Creatinine 0.88 Glucose 77 Magnesium 1.8 Total Bilirubin 0.4 AST 32 ALT 30 Alkaline Phosphatase 87 Assessment and Plan - Problems (Diagnosis) (1) Acute CVA (cerebrovascular accident) Current Visit: Yes Status: Acute Plan: Acute CVA/TIA with a history of previous stroke Started on aspirin and statin Stroke workup CTA findings noted no LVO MRI brain consistent with acute CVA of right centrum semiovale Monitor neuro vital signs Monitor under telemetry Neurology consulted PT OT ST evaluation NSTEMI Will trend cardiac enzymes Will monitor telemetry Started on aspirin and statin Patient denies any chest pain Cardiology consult Will get an echocardiogram Hypertension Antihypertensives titrated Continue home medications and titrate as needed Permissive hypertension for now Hyperlipidemia Continue statin GI/DVT prophylaxis Advanced directive full code Discharge Plan: Home Plan to discharge in: 48 Hours - Advance Directives Does patient have a Living Will: No Does patient have a Durable POA for Healthcare: No Time Spent Managing Pts Care (In Minutes): 54
[2024-11-18] MEDS ORDERED: ASPIRIN 81 MG CHEWABLE TABLET ONE (20:14)
[2024-11-18] MEDS ORDERED: ACETAMINOPHEN 500 MG TAB PO PRN (20:39)
[2024-11-18] MEDS ORDERED: ALBUTEROL 2.5 MG/3 ML NEB SOL NEB PRN (20:39)
[2024-11-18] MEDS ORDERED: ONDANSETRON 4 MG/2 ML VIAL IV PRN (20:39)
--- NOTE | 2024-11-18 21:48 | RAD REPORT ---
EXAMINATION: CTA HEAD CLINICAL INDICATION: cva TECHNIQUE: Axial CT images were obtained through the head after intravenous contrast utilizing angiog raphic protocol with 3D post-processing (maximum intensity projection images, volume rendered images and/or shaded surface rendered images). One or more of the following dose reduction technique s were used: Automated exposure control, adjustment of the mA and/or kV according to patient size, and/or iterative reconstruction. Unless otherwise specified, incidental findings do not require dedic ated imaging follow-up. COMPARISON: No prior exam. FINDINGS: ICA: The petrous, cavernous, and supraclinoid segments of the bilateral internal carotid arteries are normal. The ophthalmic artery origins are visualized and normal. The posterior communicating arteries are patent. ELIAS: Anterior cerebral arteries are normal bilaterally. The anterior communicating artery is patent. MCA: Middle cerebral arteries are normal bilaterally. WOLF HUNTER: Posterior cerebral arteries are normal bilaterally. Vertebrobasilar: The vertebral arteries are patent. The basilar artery is normal in appearance. 3D images confirm these findings. IMPRESSION: No significant flow abnormality is identified.
--- NOTE | 2024-11-18 21:51 | RAD REPORT ---
EXAMINATION: CTA NECK CLINICAL INDICATION: cva TECHNIQUE: Axial CT images were obtained from the aortic arch to the skull base after intravenous con trast utilizing angiographic protocol with 3D post-processing (maximum intensity projection images, volume rendered images and/or shaded surface rendered images). One or more of the following dose redu ction techniques were used: Automated exposure control, adjustment of the mA and/or kV according to patient size, and/or iterative reconstruction. Unless otherwise specified, incidental findings do not require dedicated imaging follow-up. COMPARISON: No prior exam. FINDINGS: AORTA: The imaged aortic arch is normal. CCA: The common carotid arteries are patent and normal in caliber. ICA/ECA: Bilateral internal and external carotid arteries are patent. There is no significant interna l carotid artery stenosis. Mild atherosclerotic plaquing both proximal ICAs. VERTEBRAL: The cervical vertebral arteries are patent. The vertebral arteries are codominant. SOFT TISSUE: No significant neck soft tissue abnormalities. The visualized lung apices are clear. 3D images confirm these findings. IMPRESSION: No significant flow abnormality of the neck vessels is identified. NASCET criteria used. Mild 0-49% stenosis Moderate 50-69% stenosis Severe 70-99% stenosis
[2024-11-18 23:36] VITALS: BMI 22.7
[2024-11-19] MEDS: ATORVASTATIN 20 MG TAB PO SCH (00:36)
[2024-11-19] MEDS: NA CHLORIDE 0.9% 1,000 ML IV SCH (00:36)
[2024-11-19 05:50] LABS: Absolute Basophils 0.1 K/uL (0-0.5); Absolute Eosinophils 0.1 K/uL (0-0.5); Absolute Lymphocytes (CBC) 2.4 K/uL (0.7-4.9); Absolute Monocytes 0.7 K/uL (0.1-1.3); Absolute Neutrophil 2.8 K/uL (1.8-8.0); Basophils % 2.2 % (0-1.3); Eosinophils % 1.6 % (0-4.4); Hematocrit 34.1 % (39.6-49.0); Hemoglobin 11.6 g/dL (13.6-17.9); Lymphocytes % 39.4 % (15.3-44.8); MCH 32.3 pg (27.0-35.0); MCHC 34.1 g/dL (32.0-36.0); MCV 94.8 fL (80-100); MPV 8.4 fL (7.6-11.3); Neutrophils % 45.8 % (41.7-73.7); Nucleated Red Blood Cells % 0.1 % (0-0); Platelets 263 thou/uL (152-406); Red Cell Distribution Width 14.9 % (12.1-15.2)
[2024-11-19 06:11] LABS: Albumin 2.6 g/dL (3.4-5.0); Albumin/Globulin Ratio 0.7 (1.1-1.8); Anion Gap 8.5 mEq/L (5.0-15.0); Bilirubin Total 0.5 mg/dL (0.2-1.0); Globulin 3.5 g/dL (2.3-3.5); Magnesium 1.8 mg/dL (1.6-2.4); Phosphorus 3.5 mg/dL (2.5-4.9); Potassium 3.5 mEq/L (3.5-5.1); Protein, Total 6.1 g/dL (6.4-8.2)
[2024-11-19] MEDS: MAGNESIUM SULFATE 1 gm IVPB 1 GM/100 ML BAG IV ONE (09:45)
[2024-11-19] MEDS: POTASSIUM 25 MEQ EFFERV TAB PO ONE (09:45)
[2024-11-19] MEDS: ASPIRIN EC 81 MG TAB PO SCH (09:45)
--- NOTE | 2024-11-19 14:03 | ECHO ---
HEIGHT: 5 ft 5 in WEIGHT: 136 lb 9.6 oz DATE OF STUDY: 11/19/[address]: Uriel Miller NP 2-DIMENSIONAL: YES M.MODE: YES DOPPLER: YES COLOR FLOW: YES TDS: NO PORTABLE: YES DEFINITY: NO BUBBLE STUDY: NO DIAGNOSIS: FALL CARDIAC HISTORY: CATHERIZATION: SURGERY: PROSTHETIC VALVE: PACEMAKER: MEASUREMENTS (cm) DIASTOLIC (NORMALS) SYSTOLIC (NORMALS) IVSd 1.6 (0.6-1.2) LA Diam 3.8 (1.9-4.0) LVEF 35-40% LVIDd 5.2 (3.5-5.7) LVIDs 4.1 (2.0-3.5) %FS 21% LVPWd 1.7 (0.6-1.2) Ao Diam 3.7 (2.0-3.7) 2 DIMENSIONAL ASSESSMENT: RIGHT ATRIUM: NORMAL LEFT ATRIUM: NORMAL RIGHT VENTRICLE: NORMAL LEFT VENTRICLE: MODERATE LEFT VENTRICULAR HYPERTROPHY TRICUSPID VALVE: MILD TRICUSPID REGURGITATION MITRAL VALVE: TRACE OF MITRAL REGURGITATION PULMONIC VALVE: NORMAL AORTIC VALVE: TRACE OF AORTIC REGURGITATION PERICARDIAL EFFUSION: NONE AORTIC ROOT: NORMAL LEFT VENTRICULAR WALL MOTION: MODERATE GLOBAL HYPOKINESIS. DOPPLER/COLOR FLOW: GRADE I DIASTOLIC DYSFUNCTION. COMMENTS: 1. MODERATE GLOBAL HYPOKINESIS, EJECTION FRACTION 35-40%, MODERATELY REDUCED LEFT VENTRICULAR FUNCTION. 2. GRADE I DIASTOLIC DYSFUNCTION. TECHNOLOGIST: RUTH FALCON
--- NOTE | 2024-11-19 15:50 | P.PN ---
Date of Service: 11/19/24 Subjective: Doing well no acute events overnight family at bedside Periodically tearful ROS: 10 point ROS as noted above, otherwise negative Physical exam GEN: Alert, oriented, NAD HEENT: Normal conjunctiva, sclera anicteric CV: Regular rate and rhythm, no edema Pulm: Nonlabored respirations on room air ABD: Soft, nontender, nondistended MSK: No joint tenderness Integumentary: No rashes Neuro: Normal speech, normal affect, unsteady gait Vitals reviewed Assessment Acute CVA-history of CVA 22 mm ischemic CVA right centrum semiovale NSTEMI Hypertension Hyperlipidemia Plan Acute CVA-history of CVA 22 mm ischemic CVA right centrum semiovale ASA, statin ordered 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
[2024-11-19] MEDS ORDERED: ALBUTEROL 2.5 MG/3 ML NEB SOL NEB PRN (17:04)
[2024-11-19] MEDS: ENOXAPARIN 40 MG/0.4 ML SQ ONE (17:34)
--- NOTE | 2024-11-20 09:24 | P.PN ---
Date of Service: 11/20/24 Subjective: Doing well no acute events overnight family at bedside Working well with PT ROS: 10 point ROS as noted above, otherwise negative Physical exam GEN: Alert, oriented, NAD HEENT: Normal conjunctiva, sclera anicteric CV: Regular rate and rhythm, no edema Pulm: Nonlabored respirations on room air ABD: Soft, nontender, nondistended MSK: No joint tenderness Integumentary: No rashes Neuro: Normal speech, normal affect, unsteady gait Vitals reviewed Assessment Acute CVA-history of CVA 22 mm ischemic CVA right centrum semiovale NSTEMI Hypertension Hyperlipidemia Plan Acute CVA-history of CVA 22 mm ischemic CVA right centrum semiovale ASA, statin ordered 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
[2024-11-20] MEDS: CLOPIDOGREL 75 MG TABLET PO SCH (09:27)
[2024-11-20] MEDS: AMLODIPINE 10 MG TAB PO SCH (09:27)
[2024-11-20] MEDS: ENOXAPARIN 40 MG/0.4 ML SQ SCH (09:27)
[2024-11-20] MEDS: carvediloL 6.25 MG TAB PO SCH (12:06)
--- NOTE | 2024-11-20 13:54 | P.CNS ---
Date of Consult: 11/20/24 Chief Complaint: Fall History of Present Illness: Patient with PMH of HTN, presented with fall, found to have stroke, denies any cardiac symptoms, no chest pain, no palpitations, no syncope. Allergies NKDA Allergy (Uncoded 10/11/15 23:00) Unknown No Known Allergies Allergy (Uncoded 11/26/15 21:12) Unknown Home medications list reviewed: Yes Home Medications: Amlodipine [Norvasc*] 10 mg PO DAILY #30 tab 12/12/22 Ergocalciferol (Vitamin D2) [Vitamin D2] 1,250 mcg PO Q7D 11/19/24 Hydralazine HCl [Apresoline] 50 mg PO TID 11/19/24 carvediloL [Coreg] 6.25 mg PO DAILY 11/19/24 - Past Medical/Surgical History Diabetic: No -: CAD -: CVA with resulting left-sided weakness -: Hypertension -: None Psychosocial/ Personal History: Patient lives at home with his family - Family History Father Medical History: Heart disease, Hypertension Mother Medical History: Heart disease, Hypertension - Social History Smoking Status: Current every day smoker Alcohol use: No CD- Drugs: Yes Caffeine use: No Place of Residence: Home Review of Systems 10-point ROS is otherwise unremarkable Physical Examination Temp Pulse Resp BP Pulse Ox 97.9 F 86 16 150/75 H 99 11/20/24 12:00 11/20/24 12:00 11/20/24 12:00 11/20/24 12:00 11/20/24 12:00 General: Alert, In no apparent distress HEENT: Atraumatic, PERRLA, Mucous membr. moist/pink, EOMI, Sclerae nonicteric Neck: Supple, 2+ carotid pulse no bruit, No LAD, Without JVD or thyroid abnormality Respiratory: Clear to auscultation bilaterally, Normal air movement Cardiovascular: Regular rate/rhythm, Normal S1 S2 Gastrointestinal: Normal bowel sounds, No tenderness Musculoskeletal: No tenderness Integumentary: No rashes Neurological: Normal gait, Normal speech, Normal tone, Normal affect Lymphatics: No axilla or inguinal lymphadenopathy - Problems (1) Troponin level elevated Current Visit: Yes Status: Acute Plan: mild troponin elevation, no significant delta, most likely type 2 MD from CVA, ASA 81 mg daily Plavix 75 mg daily Lipitor Echo shows mild reduced EF. outpatient follow up for stress test. (2) HTN (hypertension) Current Visit: Yes Status: Acute Plan: continue coreg and Norvasc (3) Acute CVA (cerebrovascular accident) Current Visit: Yes Status: Acute Plan: management per neurology outpatient follow up with cardiology for event monitor Cardiology will sign off, please call with any questions.
[2024-11-20] MEDS: ENSURE ENLIVE 237 ML CAN PO SCH (21:22)
[2024-11-21 02:20] VITALS: O2SAT 98
[2024-11-21 07:38] LABS: Anion Gap 5.3 mEq/L (5.0-15.0); Magnesium 2.2 mg/dL (1.6-2.4); Potassium 4.3 mEq/L (3.5-5.1)
[2024-11-21] MEDS: HYDRALAZINE HCL 25 MG TABLET PO SCH (08:10)
[2024-11-21 11:42] VITALS: BP 129/77; TEMP 98.3
--- NOTE | 2024-11-21 14:51 | EKG ---
Test Date: 2024-11-18 Test Time: 16:42:18 [employer] Foreman: GISELLE MEASUREMENT RESULTS: Intervals: Rate: 73 DC: 172 QRSD: 170 QT: 446 QTc: 491 [place]man: P: 59 DC: 172 QRS: -69 T: 106 INTERPRETIVE STATEMENTS: Normal sinus rhythm with sinus arrhythmia Left axis deviation Left ventricular hypertrophy with QRS widening and repolarization abnormality Abnormal ECG Compared to ECG 12/10/2022 22:21:20 No significant changes Electronically Signed On 11-21-24 14:43:31 CDT by Maynor Dueñas
--- NOTE | 2024-11-21 15:56 | P.DS ---
Admission Date: 11/18/24 Discharge Date: 11/21/24 Disposition: ROUTINE DISCHARGE Discharge Condition: GOOD Reason for Admission: Fall Brief History of Present Illness: 59 yrs old Male with past medical history of hypertension, hyperlipidemia, history of CAD, history of stroke with residual deficits, history of smoking who was brought to ER with history of fall. Patient states that trying to ambulate he was from bed. And fell down while he was walking. Family heard pt fall and went to check on him, he was crawling to the front room when they got to him. Pt does not know why or how he fell. States he could have been dizzy, but isn't sure. Denies any pain. Pt did have an episode of incontinence. Family states pt has deficits from previous stroke but his gait was more unsteady than normal. Last seen normal was last night. Patient was assessed in the ER and an MRI was positive for acute stroke and was admitted for further management. He was also found to have elevated troponin Hospital Course: Assessment Acute CVA-history of CVA 22 mm ischemic CVA right centrum semiovale NSTEMI Hypertension Hyperlipidemia Patient was admitted to the hospital after having a fall and subsequently difficulty with gait. CTA of the head and neck were negative for acute findings. Subsequent MRI of the brain was performed showed a 22 mm area of acute CVA in the right posterior centrum semiovale white matter with no hemorrhage seen. Patient was admitted to the hospital, case was discussed with neurology. Patient does have a history of hemorrhagic CVA a few years ago, this was discussed with neurology in regards to dual antiplatelet therapy, it was recommended that we do continue with dual antiplatelet therapy for 1 month with Plavix followed by discontinuation of Plavix and continuing daily aspirin after that. Patient has done very well physical therapy ambulating with a walker, he feels comfortable being discharged into his home environment at this time. We did attempt to set up home health/physical therapy but unfortunately does not have a primary care doctor, he will need to follow-up with a local primary care doctor to establish care before home health/physical therapy can be arranged. A list of primary care doctors in the area was provided to the patient, he he will need to call and schedule appointment. Additionally history high sensory troponin was mildly elevated on admission 189.9, it trended flat, he was seen by cardiology and had an echocardiogram, echocardiogram showed moderate global hypokinesis with ejection fraction of 35 to 40%, moderately reduced LV EF. Grade 1 diastolic dysfunction. Cardiology recommends continuation of her medications and follow-up outpatient in the office for stress test and event monitor. Continue home medications including amlodipine, carvedilol, hydralazine, daily baby aspirin. The following medications have been added Plavix 75 mg daily for 1 month Atorvastatin 40 mg at bedtime until otherwise instructed by your primary care doctor or neurology Vital Signs/Physical Exam: Temp Pulse Resp BP Pulse Ox 98.3 F 84 14 129/77 99 11/21/24 11:41 11/21/24 11:41 11/21/24 11:41 11/21/24 11:41 11/21/24 11:41 General: Alert, In no apparent distress, Oriented x3 HEENT: Atraumatic, PERRLA Neck: Supple, JVD not distended Respiratory: Clear to auscultation bilaterally, Normal air movement Cardiovascular: Regular rate/rhythm, Normal S1 S2 Gastrointestinal: Normal bowel sounds, No tenderness Musculoskeletal: No tenderness Integumentary: No rashes Neurological: Normal speech, Normal affect Laboratory Data at Discharge: WBC 6.00 thou/uL (4.3-10.9) 11/19/24 05:15 Hgb 11.6 g/dL (13.6-17.9) L 11/19/24 05:15 Hct 34.1 % (39.6-49.0) L 11/19/24 05:15 Plt Count 263 thou/uL (152-406) 11/19/24 05:15 PT 12.1 SECONDS (10-13.0) 11/18/24 16:48 INR 1.06 11/18/24 16:48 APTT 36.0 SECONDS (27.2-37.4) 11/18/24 16:48 Sodium 139 mEq/L (136-145) 11/21/24 07:08 Potassium 4.3 mEq/L (3.5-5.1) 11/21/24 07:08 BUN 15 mg/dL (7-18) 11/21/24 07:08 Creatinine 1.15 mg/dL (0.70-1.30) 11/21/24 07:08 Glucose 95 mg/dL (74-106) 11/21/24 07:08 Phosphorus 3.5 mg/dL (2.5-4.9) 11/19/24 05:15 Magnesium 2.2 mg/dL (1.6-2.4) 11/21/24 07:08 Total Bilirubin 0.5 mg/dL (0.2-1.0) 11/19/24 05:15 AST 28 U/L (15-37) 11/19/24 05:15 ALT 27 U/L (16-61) 11/19/24 05:15 Alkaline Phosphatase 81 U/L (45-117) 11/19/24 05:15 Triglycerides 89 mg/dL (<150) 11/19/24 05:15 Cholesterol 161 mg/dL (<200) 11/19/24 05:15 HDL Cholesterol 54 mg/dL (40-60) 11/19/24 05:15 Cholesterol/HDL Ratio 2.98 11/19/24 05:15 Home Medications: Amlodipine [Norvasc*] 10 mg PO DAILY #30 tab 12/12/22 Ergocalciferol (Vitamin D2) [Vitamin D2] 1,250 mcg PO Q7D 11/19/24 Hydralazine HCl [Apresoline] 50 mg PO TID 11/19/24 carvediloL [Coreg*] 6.25 mg PO DAILY 11/19/24 Atorvastatin Calcium 40 mg PO BEDTIME #60 tab 11/21/24 Clopidogrel Bisulfate [Plavix*] 75 mg PO DAILY #30 tab 11/21/24 New Medications: Atorvastatin Calcium 40 mg PO BEDTIME #60 tab Clopidogrel Bisulfate [Plavix*] 75 mg PO DAILY #30 tab Physician Discharge Instructions: Patient was admitted to the hospital after having a fall and subsequently difficulty with gait. CTA of the head and neck were negative for acute findings. Subsequent MRI of the brain was performed showed a 22 mm area of acute CVA in the right posterior centrum semiovale white matter with no hemorrhage seen. Patient was admitted to the hospital, case was discussed with neurology. Patient does have a history of hemorrhagic CVA a few years ago, this was discussed with neurology in regards to dual antiplatelet therapy, it was recommended that we do continue with dual antiplatelet therapy for 1 month with Plavix followed by discontinuation of Plavix and continuing daily aspirin after that. Patient has done very well physical therapy ambulating with a walker, he feels comfortable being discharged into his home environment at this time. We did attempt to set up home health/physical therapy but unfortunately does not have a primary care doctor, he will need to follow-up with a local primary care doctor to establish care before home health/physical therapy can be arranged. A list of primary care doctors in the area was provided to the patient, he he will need to call and schedule appointment. Additionally history high sensory troponin was mildly elevated on admission 189.9, it trended flat, he was seen by cardiology and had an echocardiogram, echocardiogram showed moderate global hypokinesis with ejection fraction of 35 to 40%, moderately reduced LV EF. Grade 1 diastolic dysfunction. Cardiology recommends continuation of her medications and follow-up outpatient in the office for stress test and event monitor. Continue home medications including amlodipine, carvedilol, hydralazine, daily baby aspirin. The following medications have been added Plavix 75 mg daily for 1 month Atorvastatin 40 mg at bedtime until otherwise instructed by your primary care doctor or neurology Diet: AHA Activity: Fall precautions Followup: Rito Martinez MD [ASSOCIATE-ACTIVE - CAN ADMIT] - Maynor Dueñas MD [ACTIVE - CAN ADMIT] - NONE,NONE [Primary Care Provider] - 1 Week Time spent managing pt's care (in minutes): 45
== END 2024-11-21 14:01 | disposition home or self-care (01) | DRG 64 ==
LOC: ER 15:15 → ERHOLD 20:39 → 2ND 22:40
PROVIDERS: ADMIT Family Medicine; ATTEND Hospitalist
DX: I63.9 Cerebral infarction, unspecified (principal); I21.A1 Myocardial infarction type 2; I69.351 Hemiplegia and hemiparesis following cerebral infarction affecting right dominant side; I10 Essential (primary) hypertension; E78.5 Hyperlipidemia, unspecified; I25.2 Old myocardial infarction; I25.10 Atherosclerotic heart disease of native coronary artery without angina pectoris; F17.210 Nicotine dependence, cigarettes, uncomplicated; R29.700 NIHSS score 0; R79.89 Other specified abnormal findings of blood chemistry; Z79.82 Long term (current) use of aspirin; Z79.02 Long term (current) use of antithrombotics/antiplatelets; Z79.899 Other long term (current) drug therapy; W18.30XA Fall on same level, unspecified, initial encounter; Y93.01 Activity, walking, marching and hiking; Y92.013 Bedroom of single-family (private) house as the place of occurrence of the external cause; Y99.9 Unspecified external cause status
CPT/HCPCS: 36415; 70450; 70496; 70498; 70551; 71045; 72125; 80048; 80053; 80061; 80076; 83735; 84100; 84484; 85025; 85610; 85730; 92523; 92610; 93005; 93306; 97116; 97161; 97165; 99285; J1650; J3475; J7030; Q9967